=== PATIENT | female | born 1965 | race Caucasian/White ===

== ENCOUNTER 2018-04-03 10:58 | Emergency (ER) | payer OTHER, SELFPAY ==
[2018-04-03] VITALS (7 sets, daily range): BP systolic 102–123; BP diastolic 82–94; PULSE 83–101; RESP 11–20; TEMP 36.6–36.7; O2SAT 96–98
--- NOTE | 2018-04-03 11:51 | ED_ITS ---
HPI - General Adult General Chief complaint: Chest Pain Stated complaint: chest pressure/R side abd pain/headache/dizziness Time Seen by Provider: 04/03/18 11:13 Source: patient Mode of arrival: ambulatory Limitations: no limitations History of Present Illness HPI narrative: 52-year-old female here for evaluation of multiple complaints. Patient has had chest pain for some time now. Has had an extensive cardiac workup to include Jose that she has been told that the pain that she is having today is not cardiac in origin. Has had abdominal pain for some time now. He has had multiple CT scans which have not shown any significant pathology. Has had her gallbladder removed. Is here today because she now has her normal symptoms plus vertigo sensation. Also a dehydration sensation. She is currently on Lasix and spironolactone. She states she has been gradually ring cooperating his medications back in to her regiment and take spironolactone every day and 40 mg of Lasix every other day. She is an insulin- dependent diabetic. Related Data Home Medications Medication Instructions Recorded Confirmed VITAMIN D (Vitamin D3) 5,000 iu PO QDAY #0 11/21/16 benzonatate 100 mg PO TID PRN #0 11/21/16 chlorthalidone 25 mg PO QWEEK PRN #0 11/21/16 diltiazem HCl [Cartia XT] 120 mg PO Q DAY #0 11/21/16 docusate sodium 200 mg PO QDAY #0 11/21/16 dulaglutide [Trulicity] 0.75 mg SQ QWEEKSU #0 11/21/16 duloxetine [Cymbalta] 60 mg PO QDAY #0 11/21/16 febuxostat [Uloric] 40 mg PO Q DAY #0 11/21/16 fluconazole [Diflucan] 150 mg PO QWEEKSU #0 11/21/16 furosemide 40 mg PO Q DAY #0 11/21/16 insulin lispro protamin-lispro 60 units SQ BID #0 11/21/16 [Humalog Mix 75-25 KwikPen] lansoprazole 15 mg PO QDAY #0 11/21/16 montelukast 10 mg PO Q DAY #0 11/21/16 spironolactone [Aldactone] 100 mg PO QDAY #0 11/21/16 tiotropium bromide [Spiriva 2.5 mcg INH Q DAY #0 11/21/16 Respimat] Previous Rx's Medication Instructions Recorded prednisone 40 mg PO Q DAY #8 tab 01/17/18 meclizine 25 mg PO BID PRN #7 tab 04/03/18 Allergies Allergy/AdvReac Type Severity Reaction Status Date / Time levofloxacin [From LEVAQUIN] Allergy Intermediate RASH Verified 04/03/18 11:29 aspirin [ASPIRIN] Allergy Unknown Verified 04/03/18 11:29 azithromycin [AZITHROMYCIN] Allergy Unknown Verified 04/03/18 11:29 diclofenac [DICLOFENAC] Allergy Unknown Verified 04/03/18 11:29 tramadol [TRAMADOL] Allergy Unknown Verified 04/03/18 11:29 Review of Systems Constitutional Denies chills, Reports fatigue, Denies fever(s) and Denies weakness ENT Ears, Nose, Mouth, and Throat: Reports vertigo and Reports dizziness Cardiovascular Reports chest pain, Denies edema, Denies irregular heart rhythm, Denies lightheadedness, Denies palpitations, Denies dyspnea, Denies dyspnea on exertion and Denies orthopnea Respiratory Denies cough, Denies dyspnea, Denies dyspnea on exertion and Denies wheezing Gastrointestinal Gastrointestinal: Reports abdominal pain, Denies change in bowel habits, Denies constipation, Denies cramping, Denies diarrhea, Denies nausea and Denies vomiting Genitourinary Denies hematuria, Denies flank pain, Denies urinary incontinence and Denies urinary urgency Musculoskeletal Denies abnormal gait, Denies back pain, Denies muscle weakness, Denies numbness and Denies tingling Integumentary/Breasts Denies pruritus, Denies erythema, Denies rash and Denies wounds Neurologic Denies abnormal gait, Denies confusion, Reports vertigo, Reports dizziness, Denies focal weakness, Denies numbness, Denies seizure-like activity, Denies tingling and Denies weakness Psychiatric Denies confusion Endocrine Reports fatigue and Denies palpitations Hematologic/Lymphatic Denies easy bruising Allergic/Immunologic Denies wheezing [facility] Social History Smoking Status: Never smoker Exam Initial Vital Signs Initial Vital Signs: Vital Signs Temperature 98.1 F 04/03/18 11:23 Pulse Rate 101 H 04/03/18 11:23 Respiratory Rate 04/03/18 11:23 Blood Pressure 123/94 H 04/03/18 11:23 Pulse Oximetry 96 04/03/18 11:23 Chest Chest: normal inspection of the chest Resp Effort & Inspection: normal respiratory effort, able to speak in complete sentences, no respiratory distress and no use of accessory muscles Auscultation: clear to auscultation bilaterally, no rales, no rhonchi and no wheezes Cardio Rate: regular rate Rhythm: regular rhythm Heart Sounds: no click, no gallops, no murmurs and no rubs Pulses: normal peripheral pulses GI Inspection: non-distended Palpation: soft, no hepatosplenomegaly, No guarding, No pulsatile mass and No tender Skin General: no rashes or lesions noted, No jaundice and No petechiae Neuro General: alert, awake, oriented x3, gait normal and no focal motor deficits Cranial Nerves: CN's II-XI intact bilaterally Cognition: normal cognition Speech: speech normal Gait: normal gait Motor: strength 5/5 throughout Sensory Exam: no sensory deficits noted Extrem General: full ROM, no clubbing, cyanosis or edema, no pedal edema and no calf tenderness Course Orders Ordered: ED Orders 04/03/18 11:03 EKG-12 Lead Stat 04/03/18 11:54 Complete Blood Count AUTO DIFF Stat Comprehensive Metabolic Panel Stat Lipase Stat Discontinued Medications Sodium Chloride (Normal Saline 0.9%) 500 mls @ 1,000 mls/hr IV BOLUS ONE Stop: 04/03/18 12:20 Last Infusion: 04/03/18 13:09 Dose: 0 mls/hr Admin: 04/03/18 12:30 Dose: 1,000 mls/hr Meclizine HCl (Antivert) 25 mg PO NOW ONE Stop: 04/03/18 11:52 Last Admin: 04/03/18 12:30 Dose: 25 mg Vital Signs - 8 hr 04/03/18 11:23 04/03/18 12:07 04/03/18 12:30 Temperature 98.1 F Pulse Rate 101 H 87 90 Respiratory Rate 20 14 17 Blood Pressure 123/94 H Blood Pressure [Right Arm] 114/90 H 105/85 H Pulse Oximetry 96 97 96 04/03/18 12:33 04/03/18 13:00 Temperature Pulse Rate 92 H 84 Respiratory Rate 19 14 Blood Pressure Blood Pressure [Right Arm] 102/85 H 123/82 H Pulse Oximetry 97 98 Medical Decision Making MDM Narrative Medical decision making narrative: Patient has had extensive workup for her chest symptoms to include a Lexiscan and has been told that she does not have cardiac issues. Did have elevated LFTs today. I discussed this with her. She has a follow-up with her primary doctor on of this week. Her labs and symptoms are consistent with mild dehydration. This would explain her elevated hemoglobin and hematocrit 10 also over other electrolyte issues. She does have an elevated glucose but is not in DKA. Was given fluids through the IV and also tolerated oral intake. She was given meclizine and that with the fluids improved her vertigo symptoms. Will hold on head CT for now. I have low suspicion for a central process of the vertigo given her history and physical. We did discuss her diuretic use. She will drop her Lasix to 20 mg every other day and continue the spironolactone. She was given return precautions. Her is at bedside for these discussions. She expressed understanding and agreement with plan Lab Data Lab results reviewed: Yes I reviewed the patient's lab results. Result diagrams: 04/03/18 11:54 04/03/18 11:54 Lab Results 04/03/18 04/03/18 04/03/18 Range/Units 11:54 11:54 11:54 WBC 9.7 (4.5-11.0) X10^3/uL RBC 5.76 H (4.0-5.2) X10^6/uL Hgb 16.8 H (12.0-16.0) g/dL Hct 47.2 H (36-46) % MCV 82.0 (80-100) fL MCH 29.1 (26-34) PG MCHC 35.5 (30-36) % RDW 12.4 (11.6-14.8) % Plt Count 306 (150-400) X10^3/uL Neut % (Auto) 49.9 L (50-75) % Lymph % (Auto) 40.2 H (25-40) % Stanton % (Auto) 8.5 (3-14) % Eos % (Auto) 0.8 L (2-4) % Baso % (Auto) 0.6 (0-2) % Neut # (Auto) 4800 (9156-3385) /uL Sodium 125 L (137-145) mmol/L Potassium 3.1 L (3.4-5.1) mmol/L Chloride 72.0 L* (98-107) mmol/L Carbon Dioxide 36.0 H (22-32) mmol/L BUN 31.0 H (7-17) mg/dL Creatinine 1.10 H (0.52-1.04) mg/dL Estimated GFR 51.8 L (>60) mL/min BUN/Creatinine Ratio 28.2 H (6-22) Glucose 511 H* (70-100) mg/dL Calcium 10.9 H (8.4-10.2) mg/dL Total Bilirubin 0.8 (0.2-1.3) mg/dL AST 41 H (14-36) IU/L ALT 53 H (9-52) IU/L Alkaline Phosphatase 130 H (38-126) U/L Total Protein 8.0 (6.3-8.2) g/dL Albumin 4.8 (3.5-5.0) g/dL Globulin 3.2 (1.7-4.1) g/dL Albumin/Globulin Ratio 1.5 (1.0-2.8) Lipase 225 (23-300) U/L ECG Data Attestation: I personally reviewed and interpreted this ECG as follows: Prior ECG tracings: available for review Interpretation: EKG dated 03 Apr 2018 time 1103 hr Sinus rhythm Ventricular rate of 96 Normal axis Normal intervals Normal QRS No ST T wave changes Previous EKG dated 01/12/2018 Sinus rhythm Ventricular rate 86 Normal axis Normal intervals Normal QRS No ST T wave changes Discharge Plan Departure Patient Disposition: Home, Self-Care Clinical Impression: Dehydration, Hyperglycemia, Elevated liver function tests Instructions: DI for Dehydration -- Adult Activity Restrictions/Additional Instructions: Recommend that you decrease your Lasix dose to 20 mg every other day. Continue to check your blood sugars at home and does yourself with insulin appropriately. Keep your appointment with your primary doctor on of this week return to the emergency department for any new or worsening symptoms Prescriptions: New meclizine 25 mg tablet 25 mg PO BID PRN (Reason: vertigo) Qty: 7 RF: 0 No Action dulaglutide [Trulicity] 0.75 MG/0.5 ML pen injector 0.75 mg SQ QWEEKSU Qty: 0 RF: 0 fluconazole [Diflucan] 150 MG tablet 150 mg PO QWEEKSU Qty: 0 RF: 0 montelukast 10 MG tablet 10 mg PO Q DAY Qty: 0 RF: 0 diltiazem HCl [Cartia XT] 120 MG capsule,extended release 24hr 120 mg PO Q DAY Qty: 0 RF: 0 febuxostat [Uloric] 40 MG tablet 40 mg PO Q DAY Qty: 0 RF: 0 benzonatate 100 MG capsule 100 mg PO TID PRNQty: 0 RF: 0 chlorthalidone 25 MG tablet 25 mg PO QWEEK PRNQty: 0 RF: 0 tiotropium bromide [Spiriva Respimat] 4 GM mist 2.5 mcg INH Q DAY Qty: 0 RF: 0 furosemide 40 MG tablet 40 mg PO Q DAY Qty: 0 RF: 0 insulin lispro protamin-lispro [Humalog Mix 75-25 KwikPen] 100 UNIT/1 ML insulin pen 60 units SQ BID Qty: 0 RF: 0 lansoprazole 15 MG capsule,delayed release(DR/EC) 15 mg PO QDAY Qty: 0 RF: 0 spironolactone [Aldactone] 100 MG tablet 100 mg PO QDAY Qty: 0 RF: 0 VITAMIN D (Vitamin D3) 5,000 iu PO QDAY Qty: 0 RF: 0 docusate sodium 100 MG capsule 200 mg PO QDAY Qty: 0 RF: 0 duloxetine [Cymbalta] 30 MG capsule,delayed release(DR/EC) 60 mg PO QDAY Qty: 0 RF: 0 prednisone 20 MG tablet 40 mg PO Q DAY Qty: 8 RF: 0
[2018-04-03 12:02] LABS: Add Manual Diff / Slide Review NO; Basophils Percent Auto 0.6 % (0-2); Eosinophils Percent Auto 0.8 % (2-4); Hematocrit 47.2 % (36-46); Hemoglobin 16.8 g/dL (12.0-16.0); Lymphocytes Percent Auto 40.2 % (25-40); Mean Corpuscular HGB Conc 35.5 % (30-36); Mean Corpuscular Hemoglobin 29.1 PG (26-34); Monocytes Percent Auto 8.5 % (3-14); Neutrophils Absolute Auto 4800 /uL (3000-5900); Neutrophils Percent Auto 49.9 % (50-75); Platelet Count 306 X10^3/uL (150-400); Red Blood Cell Count 5.76 X10^6/uL (4.0-5.2); Red Cell Distribution Width 12.4 % (11.6-14.8); White Blood Cell Count 9.7 X10^3/uL (4.5-11.0)
[2018-04-03 12:09] LABS: Alanine Aminotransferase 53 IU/L (9-52); Albumin 4.8 g/dL (3.5-5.0); Albumin Globulin Ratio 1.5 (1.0-2.8); Alkaline Phosphatase 130 U/L (38-126); Aspartate Aminotransferase 41 IU/L (14-36); BUN Creatinine Ratio 28.2 (6-22); Bilirubin Total 0.8 mg/dL (0.2-1.3); Calcium 10.9 mg/dL (8.4-10.2); Estimated Glomerular Filt Rate 51.8 mL/min (>60); Globulin 3.2 g/dL (1.7-4.1); HEMOLYSIS 18 (0-50); Lipase 225 U/L (23-300); Potassium 3.1 mmol/L (3.4-5.1); Sodium 125 mmol/L (137-145)
[2018-04-03 12:18] LABS: Glucose 511 mg/dL (70-100)
[2018-04-03] MEDS: MECLIZINE HCL 12.5 MG TABLET 25 MG PO (12:30)
[2018-04-03] MEDS: SODIUM CHLORIDE 0.9% 500 ML 1000 ML IV (12:30)
== END 2018-04-03 13:50 | disposition home or self-care (01) ==
PROVIDERS: Emergency Provider Emergency Medicine; PCP Physician Assistant Medical
DX: E86.0 Dehydration (principal); R73.9 Hyperglycemia, unspecified; R94.5 Abnormal results of liver function studies
CPT/HCPCS: 36591; 80053; 81003; 82962; 83690; 85025; 93005; 93041; 96360; 99284

== ENCOUNTER → 2018-06-09 15:22 | Outpatient (CLI) | payer OTHER, SELFPAY ==
--- NOTE | 2018-06-09 | DI.CT.S_ITS ---
PROCEDURE: CT ABDOMEN PELVIS W CON INDICATIONS: ABDOMINAL PAIN RIGHT LOWER QUADRANT TECHNIQUE: After the administration of oral and intravenous contrast, 5 mm thick sections acquired from the diaphragms to the symphysis. 5 mm thick coronal and sagittal reformats were performed. For radiation dose reduction, the following was used: automated exposure control, adjustment of mA and/or kV according to patient size. COMPARISON: [facility], CT, THORAX WITHOUT CONTRAST, 01/26/2018, 13:05. FINDINGS: Image quality: Excellent. ABDOMEN: Lung bases: Lung bases are clear. Heart size is normal. Solid organs: Liver demonstrates enlargement with steatosis. Gallbladder has been removed. Biliary system is non-dilated. Pancreas enhances normally. Spleen demonstrates scattered sub-centimeters areas of low attenuation the largest measuring approximately 8 mm. There are unchanged. No adrenal nodules. Kidneys are normal in size and enhancement, without hydronephrosis. Peritoneum and bowel: Stomach, small bowel, and colon loops are normal in caliber and wall thickness. No free fluid or air. The appendix is unremarkable. Nodes and vessels: No retroperitoneal or mesenteric adenopathy. Aorta and inferior vena cava are normal in caliber. Miscellaneous: No ventral hernias. PELVIS: Genitourinary: Bladder wall thickness is normal. Miscellaneous: No inguinal hernias or adenopathy. Bones: No suspicious bony lesions. No vertebral body compression fractures. IMPRESSION: 1. No visualized cause of acute abdominal pain. 2. Appendix is unremarkable. 3. Hepatic steatosis. Dictated by: Dianna Lees M.D. on 06/09/2018 at 17:26 Approved by: Dianna Lees M.D. on 06/09/2018 at 18:04
[2018-06-09 15:51] LABS: Add Manual Diff / Slide Review NO; Basophils Percent Auto 0.9 % (0-2); Eosinophils Percent Auto 2.2 % (2-4); Hematocrit 42.6 % (36-46); Hemoglobin 14.5 g/dL (12.0-16.0); Mean Corpuscular HGB Conc 33.9 % (30-36); Mean Corpuscular Hemoglobin 28.8 PG (26-34); Monocytes Percent Auto 5.7 % (3-14); Neutrophils Absolute Auto 5000 /uL (3000-5900); Neutrophils Percent Auto 52.2 % (50-75); Platelet Count 332 X10^3/uL (150-400); Red Blood Cell Count 5.01 X10^6/uL (4.0-5.2); White Blood Cell Count 9.6 X10^3/uL (4.5-11.0)
[2018-06-09 16:03] LABS: Alanine Aminotransferase 46 IU/L (9-52); Albumin 4.7 g/dL (3.5-5.0); Albumin Globulin Ratio 1.9 (1.0-2.8); Alkaline Phosphatase 101 U/L (38-126); Aspartate Aminotransferase 31 IU/L (14-36); Bilirubin Total 0.4 mg/dL (0.2-1.3); Blood Urea Nitrogen 18 mg/dL (7-17); Calcium 10.4 mg/dL (8.4-10.2); Carbon Dioxide 29 mmol/L (22-32); Chloride 95 mmol/L (98-107); Estimated Glomerular Filt Rate 57.8 mL/min (>60); Globulin 2.5 g/dL (1.7-4.1); Glucose 250 mg/dL (70-100); HEMOLYSIS < 15 (0-50); Lipase 91 U/L (23-300); Potassium 3.9 mmol/L (3.4-5.1); Sodium 136 mmol/L (137-145); Total Protein 7.2 g/dL (6.3-8.2)
== END ==
PROVIDERS: PCP Physician Assistant Medical; Visit Provider Physician Assistant Medical
DX: R10.31 Right lower quadrant pain (principal); K76.0 Fatty (change of) liver, not elsewhere classified
CPT/HCPCS: 36415; 74177; 80053; 83690; 85025; Q9967

== ENCOUNTER 2018-12-01 15:23 | Emergency (ER) | payer BC, SELFPAY ==
[2018-12-01 15:35] VITALS: BP 151/96; PULSE 95; RESP 15; TEMP 37.2; O2SAT 99; BMI 33.4
[2018-12-01 16:04] LABS: Influenza A and B by PCR Rapid Negative (Negative)
--- NOTE | 2018-12-01 16:52 | DI.RAD.S_ITS ---
PROCEDURE: XR CHEST 2V INDICATIONS: cough, asthma, pain TECHNIQUE: 2 views of the chest were acquired. COMPARISON: [facility], , CHEST 2 VIEW, 01/12/2018, 17:57. FINDINGS: Surgical changes and devices: None. Lungs and pleura: No pleural effusions or pneumothorax. Lungs are clear. Mediastinum: Mediastinal contours are normal. Heart size is normal. Bones and chest wall: No suspicious bony abnormalities. Soft tissues appear unremarkable. IMPRESSION: No acute disease. Dictated by: Fortunato Luna M.D. on 12/01/2018 at 17:32 Approved by: Fortunato Luna M.D. on 12/01/2018 at 17:32
[2018-12-01] MEDS: ALBUTEROL 2.5 MG/3 ML NEB (ADULT) INH (16:56)
[2018-12-01] MEDS: ALBUTEROL/IPRATROPIUM 3 ML AMPUL INH (16:56)
--- NOTE | 2018-12-01 16:56 | PC.NURSE ---
provider at bs. , pt c/o chest tightness, shortness of breath, tripod position.skin warm dry pink.
[2018-12-01 16:58] VITALS: O2SAT 96
--- NOTE | 2018-12-01 16:59 | ED_ITS ---
HPI - URI/Sore Throat <Doris Arreola PA-C - Last Filed: 12/01/18 22:14> General Chief Complaint: Upper Respiratory Symptoms Stated Complaint: thinks she has the Cold, bad Time Seen by Provider: 12/01/18 16:46 Source: patient Mode of arrival: ambulatory Limitations: no limitations History of Present Illness HPI Narrative: This 53-year-old female complains of upper respiratory symptoms onset 5 days ago. She states initially, these were just cold symptoms with some nasal congestion, sinus pressure, and chest congestion. She started to feel achy all over. She worked on Wednesday, but then started to develop fevers, increasing cough and chest tightness, and now pain with deep breath. She states that this is typical of her asthma exacerbations when she gets sick. She states that she has earache, more on the left. She does not have sore throat. She has had increased wheeze at home. Does use her inhalers but out of nebulizer machine medicine. She states her mom was sick with similar symptoms prior to onset of hers. She has been taking Mucinex with acetaminophen as well as ibuprofen regularly at home. 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 She states that Decadron usually works more quickly for her but with fewer side effects. Related Data Home Medications Medication Instructions Recorded Confirmed cholecalciferol (vitamin D3) 5,000 unit PO DAILY #0 11/21/16 12/01/18 [Vitamin D3] diltiazem HCl [Cartia XT] 120 mg PO Q DAY PRN #0 11/21/16 12/01/18 docusate sodium 200 mg PO QDAY #0 11/21/16 12/01/18 duloxetine [Cymbalta] 60 mg PO QDAY #0 11/21/16 12/01/18 febuxostat [Uloric] 40 mg PO Q DAY #0 11/21/16 12/01/18 fluconazole [Diflucan] 150 mg PO PRN PRN #0 11/21/16 12/01/18 furosemide 40 mg PO DAILY #0 11/21/16 12/01/18 lansoprazole 15 mg PO QDAY #0 11/21/16 12/01/18 montelukast 10 mg PO DAILY #0 11/21/16 12/01/18 spironolactone [Aldactone] 100 mg PO DAILY #0 11/21/16 12/01/18 albuterol sulfate [Ventolin HFA] 2 puff INHALATION Q3H PRN 12/01/18 12/01/18 insulin glargine [Lantus U-100 20 units SUBCUT BEDTIME 12/01/18 12/01/18 Insulin] insulin lispro [Humalog U-100 1 dose SUBCUT PRN PRN 12/01/18 12/01/18 Insulin] Previous Rx's Medication Instructions Recorded prednisone 40 mg PO Q DAY #8 tab 01/17/18 albuterol sulfate 1.25 mg INHALATION Q4H PRN #90 ml 12/01/18 ipratropium-albuterol 3 ml INHALATION QID PRN #180 ml 12/01/18 Allergies Allergy/AdvReac Type Severity Reaction Status Date / Time levofloxacin [From LEVAQUIN] Allergy Intermediate RASH Verified 12/01/18 15:35 aspirin [ASPIRIN] Allergy Unknown Verified 12/01/18 15:35 azithromycin [AZITHROMYCIN] Allergy Unknown Verified 12/01/18 15:35 diclofenac [DICLOFENAC] Allergy Unknown Verified 12/01/18 15:35 tramadol [TRAMADOL] Allergy Unknown Verified 12/01/18 15:35 Review of Systems <Doris Arreola PA-C - Last Filed: 12/01/18 22:14> Review of Systems ROS Unobtainable: All systems reviewed & are unremarkable except as noted in HPI and below Exam <Doris Arreola PA-C - Last Filed: 12/01/18 22:14> Narrative Exam Narrative: GENERAL APPEARANCE: Patient sitting comfortably, in no distress. HEAD: No sinus TTP. EYES: PERRL, EOMI. EARS: Normal auditory canals, TMS intact with normal light reflexes. ORAL CAVITY: Normal oropharynx. THROAT: Mild erythema, PND noted, no exudate NECK/THYROID: Neck supple, full range of motion, no cervical lymphadenopathy. LUNGS: Clear to auscultation bilaterally with generalized reduced breath sounds , occasional cough on exam HEART: RRR without murmur, nl S1, S2, no S3 or S4. Initial Vital Signs Initial Vital Signs: Vital Signs Temperature 99.0 F 12/01/18 15:35 Pulse Rate 95 H 12/01/18 15:35 Respiratory Rate 15 12/01/18 15:35 Blood Pressure 151/96 H 12/01/18 15:35 Pulse Oximetry 99 12/01/18 15:35 <Wes Page DO - Last Filed: 12/02/18 08:26> Initial Vital Signs Initial Vital Signs: Vital Signs Temperature 99.0 F 12/01/18 15:35 Pulse Rate 95 H 12/01/18 15:35 Respiratory Rate 15 12/01/18 15:35 Blood Pressure 151/96 H 12/01/18 15:35 Pulse Oximetry 99 12/01/18 15:35 Course <Doris Arreola PA-C - Last Filed: 12/01/18 22:14> Additional Information: Patient is feeling markedly improved after nebulizer treatments. Chatting with family on face time. She has a sick contact at home that she cares for and believes that this is viral related to that. She feels this is consistent with her previous asthma exacerbations. She started herself on 60 mg of prednisone on Wednesday, then has been taking 40 mg. She tends to get palpitations/arrhythmia with that and takes diltiazem as needed. She states that generally Decadron works better with fewer side effects and would like a dose of that here. She states that she adjust her insulin accordingly when she takes this and monitors her blood sugars. She has also been out of her nebulizer medications at home and these tend to help her, so they were refilled. She agreed to return if any acutely worsening symptoms over the weekend, otherwise will follow up with her PCP within the next few days, will continue nebs and steroids at home. Orders Ordered: Discontinued Medications Albuterol (Ventolin) 2.5 mg INH NOW ONE Stop: 12/01/18 16:53 Last Admin: 12/01/18 16:56 Dose: 2.5 mg Albuterol/Ipratropium (Duoneb) 3 ml INH NOW ONE Stop: 12/01/18 16:53 Last Admin: 12/01/18 16:56 Dose: 3 ml Dexamethasone 16 mg/ Sodium (Chloride) 51.6 mls @ 206.4 mls/hr IV NOW ONE Stop: 12/01/18 18:44 Last Admin: 12/01/18 18:28 Dose: Vital Signs - 8 hr 12/01/18 15:35 12/01/18 16:58 12/01/18 17:07 Temperature 99.0 F Pulse Rate 95 H Respiratory Rate 15 Blood Pressure 151/96 H Blood Pressure [Right Arm] Pulse Oximetry 99 96 100 12/01/18 17:25 12/01/18 18:17 Temperature Pulse Rate 101 H 106 H Respiratory Rate 17 18 Blood Pressure Blood Pressure [Right Arm] 176/90 H 153/92 H Pulse Oximetry 99 99 <Wes Page DO - Last Filed: 12/02/18 08:26> Orders Ordered: Discontinued Medications Albuterol (Ventolin) 2.5 mg INH NOW ONE Stop: 12/01/18 16:53 Last Admin: 12/01/18 16:56 Dose: 2.5 mg Albuterol/Ipratropium (Duoneb) 3 ml INH NOW ONE Stop: 12/01/18 16:53 Last Admin: 12/01/18 16:56 Dose: 3 ml Dexamethasone 16 mg/ Sodium (Chloride) 51.6 mls @ 206.4 mls/hr IV NOW ONE Stop: 12/01/18 18:44 Last Admin: 12/01/18 18:28 Dose: Vital Signs - 8 hr 12/01/18 15:35 12/01/18 16:58 12/01/18 17:07 Temperature 99.0 F Pulse Rate 95 H Respiratory Rate 15 Blood Pressure 151/96 H Blood Pressure [Right Arm] Pulse Oximetry 99 96 100 12/01/18 17:25 12/01/18 18:17 Temperature Pulse Rate 101 H 106 H Respiratory Rate 17 18 Blood Pressure Blood Pressure [Right Arm] 176/90 H 153/92 H Pulse Oximetry 99 99 MDM - URI/Sore Throat <Doris Arreola PA-C - Last Filed: 12/01/18 22:14> Lab Data Lab Results 12/01/18 Range/Units 15:32 Influenza A & B (PCR) Negative (Negative) Imaging Data Chest x-ray: Radiologist's impression: View Report History [address] [address] XRay Report Signed Patient: Daisy Morrow MR#: [id number] : 1965 Acct:[id number] Age/Sex: 53 / F Date of Service: 12/01/18 Loc: ED Accession Number: [id number] Procedure: XR chest 2V Ordering Provider: Doris Arreola P.A-C PROCEDURE: XR CHEST 2V INDICATIONS: cough, asthma, pain TECHNIQUE: 2 views of the chest were acquired. COMPARISON: [facility], , CHEST 2 VIEW, 01/12/2018, 17:57. FINDINGS: Surgical changes and devices: None. Lungs and pleura: No pleural effusions or pneumothorax. Lungs are clear. Mediastinum: Mediastinal contours are normal. Heart size is normal. Bones and chest wall: No suspicious bony abnormalities. Soft tissues appear unremarkable. IMPRESSION: No acute disease. Dictated by: Fortunato Luna M.D. on 12/01/2018 at 17:32 Approved by: Fortunato Luna M.D. on 12/01/2018 at 17:32 <Wes Page DO - Last Filed: 12/02/18 08:26> Lab Data Lab Results 12/01/18 Range/Units 15:32 Influenza A & B (PCR) Negative (Negative) Discharge Plan Departure Patient Disposition: Home Clinical Impression: Asthma exacerbation, Bronchitis Discharge Date/Time: 12/01/18 18:46 Interventions: ED Discharge Assessment Last Done: 12/01/18 18:45 Instructions: DI for Asthma -- Adult Activity Restrictions/Additional Instructions: Please return as we talked about if you have any acutely worsening symptoms again. Hopefully you will continue to feel better now that you have had the steroid injection and nebulizer treatments. Please use your DuoNeb at least twice daily routinely, and use the albuterol as often as needed in between while you are ill. Continue your prednisone 40 mg daily tomorrow if you are feeling better, but if not please increased it back to 60 mg until you follow up with your PCP. Please call 1st thing in the morning and follow up by Wednesday at the latest. Continue to monitor your blood sugars and adjust her insulin as you have been already. Prescriptions: New ipratropium-albuterol 0.5 mg-3 mg(2.5 mg base)/3 mL solution for nebulization 3 ml INHALATION QID PRN (Reason: asthma exac) Qty: 180 RF: 0 albuterol sulfate 1.25 mg/3 mL solution for nebulization 1.25 mg INHALATION Q4H PRN (Reason: asthma exac) Qty: 90 RF: 0 No Action fluconazole [Diflucan] 150 MG tablet 150 mg PO PRN PRN (Reason: as directed) Qty: 0 RF: 0 montelukast 10 MG tablet 10 mg PO DAILY Qty: 0 RF: 0 diltiazem HCl [Cartia XT] 120 MG capsule,extended release 24hr 120 mg PO Q DAY PRN (Reason: as directed) Qty: 0 RF: 0 febuxostat [Uloric] 40 MG tablet 40 mg PO Q DAY Qty: 0 RF: 0 furosemide 40 MG tablet 40 mg PO DAILY Qty: 0 RF: 0 lansoprazole 15 MG capsule,delayed release(DR/EC) 15 mg PO QDAY Qty: 0 RF: 0 spironolactone [Aldactone] 100 MG tablet 100 mg PO DAILY Qty: 0 RF: 0 cholecalciferol (vitamin D3) [Vitamin D3] 5,000 unit Tablet 5,000 unit PO DAILY Qty: 0 RF: 0 docusate sodium 100 MG capsule 200 mg PO QDAY Qty: 0 RF: 0 duloxetine [Cymbalta] 30 MG capsule,delayed release(DR/EC) 60 mg PO QDAY Qty: 0 RF: 0 prednisone 20 MG tablet 40 mg PO Q DAY Qty: 8 RF: 0 insulin glargine [Lantus U-100 Insulin] 100 unit/mL solution 20 units subcut BEDTIME RF: 0 albuterol sulfate [Ventolin HFA] 90 mcg/actuation HFA aerosol inhaler 2 puff Inhalation Q3H PRN (Reason: Wheezing) RF: 0 insulin lispro [Humalog U-100 Insulin] 100 unit/mL Cartridge 1 dose subcut PRN PRN (Reason: sliding scale) RF: 0 Referrals: Tania Grewal PA-C [Primary Care Provider] - <Wes Page DO - Last Filed: 12/02/18 08:26> Cosign ED Attending Cristina Attestation: I was immediately available in the department for consultation. Documentation has been reviewed. I agree with assessment and plan.
[2018-12-01 17:07] VITALS: O2SAT 100
[2018-12-01 17:25] VITALS: BP 176/90; PULSE 101; RESP 17; O2SAT 99
[2018-12-01 18:17] VITALS: BP 153/92; PULSE 106; RESP 18; O2SAT 99
== END 2018-12-01 18:46 | disposition home or self-care (01) ==
PROVIDERS: Emergency Medicine; Emergency Provider Internal Medicine; PCP Physician Assistant Medical
DX: J45.901 Unspecified asthma with (acute) exacerbation (principal)
CPT/HCPCS: 71046; 87400; 94150; 94640; 96372; 99282; 99284; J7613

== ENCOUNTER 2018-12-04 11:16 | Emergency (ER) | payer BC, SELFPAY ==
[2018-12-04 11:28] VITALS: BP 135/99; PULSE 112; RESP 18; TEMP 36.6; O2SAT 99
--- NOTE | 2018-12-04 12:33 | DI.RAD.S_ITS ---
PROCEDURE: XR CHEST 2V INDICATIONS: sob, productive cough TECHNIQUE: 2 views of the chest were acquired. COMPARISON: [facility], CR, XR CHEST 2V, 12/01/2018, 16:54. FINDINGS: Surgical changes and devices: None. Lungs and pleura: No pleural effusions or pneumothorax. Lungs are clear. Mediastinum: Mediastinal contours are normal. Heart size is normal. Bones and chest wall: No suspicious bony abnormalities. Soft tissues appear unremarkable. IMPRESSION: No acute cardiopulmonary pathology. Dictated by: Fermin Manzano M.D. on 12/04/2018 at 12:48 Approved by: Fermin Manzano M.D. on 12/04/2018 at 12:48
[2018-12-04 12:50] VITALS: PULSE 101; RESP 18; O2SAT 100
--- NOTE | 2018-12-04 12:50 | ED_ITS ---
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 The patient has a long history of asthma as well as diabetes. She states she was here on with similar complaints, but feels as though she is getting worse. She denies any fevers, denies any nausea or vomiting. She does complain of diarrhea but states it might be due to her chronic IBS. She complains of pain on deep inspiration. She states that she is having purulent sputum with her productive cough. She denies any chest pain at rest. Related Data Home Medications Medication Instructions Recorded Confirmed cholecalciferol (vitamin D3) 5,000 unit PO DAILY #0 11/21/16 12/01/18 [Vitamin D3] diltiazem HCl [Cartia XT] 120 mg PO Q DAY PRN #0 11/21/16 12/01/18 docusate sodium 200 mg PO QDAY #0 11/21/16 12/01/18 duloxetine [Cymbalta] 60 mg PO QDAY #0 11/21/16 12/01/18 febuxostat [Uloric] 40 mg PO Q DAY #0 11/21/16 12/01/18 fluconazole [Diflucan] 150 mg PO PRN PRN #0 11/21/16 12/01/18 furosemide 40 mg PO DAILY #0 11/21/16 12/01/18 lansoprazole 15 mg PO QDAY #0 11/21/16 12/01/18 montelukast 10 mg PO DAILY #0 11/21/16 12/01/18 spironolactone [Aldactone] 100 mg PO DAILY #0 11/21/16 12/01/18 albuterol sulfate [Ventolin HFA] 2 puff INHALATION Q3H PRN 12/01/18 12/01/18 insulin glargine [Lantus U-100 20 units SUBCUT BEDTIME 12/01/18 12/01/18 Insulin] insulin lispro [Humalog U-100 1 dose SUBCUT PRN PRN 12/01/18 12/01/18 Insulin] Previous Rx's Medication Instructions Recorded prednisone 40 mg PO Q DAY #8 tab 01/17/18 albuterol sulfate 1.25 mg INHALATION Q4H PRN #90 ml 12/01/18 ipratropium-albuterol 3 ml INHALATION QID PRN #180 ml 12/01/18 doxycycline hyclate 100 mg PO BID #20 cap 12/04/18 Allergies Allergy/AdvReac Type Severity Reaction Status Date / Time levofloxacin [From LEVAQUIN] Allergy Intermediate RASH Verified 12/04/18 11:31 aspirin [ASPIRIN] Allergy Unknown Verified 12/04/18 11:31 azithromycin [AZITHROMYCIN] Allergy Unknown Verified 12/04/18 11:31 diclofenac [DICLOFENAC] Allergy Unknown Verified 12/04/18 11:31 tramadol [TRAMADOL] Allergy Unknown Verified 12/04/18 11:31 Review of Systems <ROBERTA Ramirez - Last Filed: 12/04/18 13:50> Review of Systems GENERAL: Denies chills, fatigue, malaise, fever, sweats. HEENT: See HPI RESPIRATORY: See HPI CARDIOVASCULAR: Denies chest pain, palpitations, orthopnea, edema, GASTROINTESTINAL: Denies nausea, vomiting, abdominal pain, diarrhea, constipation, melena. : Denies dysuria, frequency, incontinence, hematuria, urinary retention. MUSCULOSKELETAL: denies weakness, joint pain, or bony pain SKIN: Denies rash, skin lesions, or other NEUROLOGIC: Denies weakness, headache, numbness, change in speech, confusion, seizures, incoordination. PSYCHIATRIC: No concerning psychosocial issues. 12 point review of systems is negative except for those stated above Exam <ROBERTA Ramirez - Last Filed: 12/04/18 13:50> Narrative Exam Narrative: GENERAL: This is a well-nourished, well-developed patient, sitting on stretcher HEAD: Atraumatic. Normocephalic. No temporal or scalp tenderness. EYES: Pupils equal round and reactive. Extraocular motions intact. No scleral icterus. No injection or drainage. ENT: Nose without bleeding, purulent drainage or septal hematoma. Throat without erythema, tonsillar hypertrophy or exudate. Uvula midline. Airway patent. Fluid noted behind bilateral tympanic membranes. Bilateral tympanic membranes pearly west. No erythema. NECK: Trachea midline. No JVD or lymphadenopathy. Supple, nontender, no meningeal signs. CARDIOVASCULAR: Regular rate and rhythm without murmurs, gallops, or rubs. RESPIRATORY: Diffuse expiratory wheezes bilaterally all anguiano. Productive cough noted during exam.. Breath sounds equal bilaterally. No rales or rhonchi noted. No accessory muscle use or tried potting. Patient is able to speak in full sentences after nebulizer in the emergency department. GASTROINTESTINAL: Abdomen soft, non-tender, nondistended. No hepato-splenomegaly , or palpable masses. No guarding. EXTREMITIES: No clubbing, cyanosis, or edema. No joint tenderness, effusion, or edema noted. BACK: Nontender without deformity or crepitance. No flank tenderness. NEURO: AOx3. SKIN: No rash or erythema. Initial Vital Signs Initial Vital Signs: Vital Signs Temperature 97.9 F 12/04/18 11:28 Pulse Rate 112 H 12/04/18 11:28 Respiratory Rate 18 12/04/18 11:28 Blood Pressure 135/99 H 12/04/18 11:28 Pulse Oximetry 99 12/04/18 11:28 <Melanie Dexter MD - Last Filed: 12/04/18 18:54> Initial Vital Signs Initial Vital Signs: Vital Signs Temperature 97.9 F 12/04/18 11:28 Pulse Rate 112 H 12/04/18 11:28 Respiratory Rate 18 12/04/18 11:28 Blood Pressure 135/99 H 12/04/18 11:28 Pulse Oximetry 99 12/04/18 11:28 Course <ROBERTA Ramirez - Last Filed: 12/04/18 13:50> Orders Ordered: ED Orders 12/04/18 12:33 XR chest 2V Stat RT Consult Eval and Treat Now Discontinued Medications Albuterol/Ipratropium (Duoneb) 3 ml INH NOW ONE Stop: 12/04/18 12:57 Last Admin: 12/04/18 12:57 Dose: 3 ml Vital Signs - 8 hr 12/04/18 11:28 12/04/18 12:50 12/04/18 12:56 Temperature 97.9 F Pulse Rate 112 H 101 H 100 H Respiratory Rate 18 18 17 Blood Pressure 135/99 H Blood Pressure [Right Arm] Pulse Oximetry 99 100 100 12/04/18 13:43 Temperature Pulse Rate 109 H Respiratory Rate 18 Blood Pressure Blood Pressure [Right Arm] 141/92 H Pulse Oximetry 98 <Melanie Dexter MD - Last Filed: 12/04/18 18:54> Orders Ordered: ED Orders 12/04/18 12:33 XR chest 2V Stat RT Consult Eval and Treat Now Discontinued Medications Albuterol/Ipratropium (Duoneb) 3 ml INH NOW ONE Stop: 12/04/18 12:57 Last Admin: 12/04/18 12:57 Dose: 3 ml Vital Signs - 8 hr 12/04/18 11:28 12/04/18 12:50 12/04/18 12:56 Temperature 97.9 F Pulse Rate 112 H 101 H 100 H Respiratory Rate 18 18 17 Blood Pressure 135/99 H Blood Pressure [Right Arm] Pulse Oximetry 99 100 100 12/04/18 13:43 Temperature Pulse Rate 109 H Respiratory Rate 18 Blood Pressure Blood Pressure [Right Arm] 141/92 H Pulse Oximetry 98 MDM - URI/Sore Throat <ROBERTA Ramirez - Last Filed: 12/04/18 13:50> Imaging Data Chest x-ray: Radiologist's impression: 2 ROBERTA Ramirez Find Patient Imaging ACTIVITY DATE EXAM STATUS AUTHOR 12/04/18 12:33 Signed Fermin Manzano [address] [address] XRay Report Signed Patient: Daisy Morrow [facility]#: [id number] : 1965Acct:[id number] Age/Sex: 53 / FDate of Service: 12/04/18 Loc: ED Accession Number: [id number] Procedure: XR chest 2V Ordering Provider: Yadira Dyson PROCEDURE: XR CHEST 2V INDICATIONS: sob, productive cough TECHNIQUE: 2 views of the chest were acquired. COMPARISON: [facility], , XR CHEST 2V, 12/01/2018, 16:54. FINDINGS: Surgical changes and devices: None. Lungs and pleura: No pleural effusions or pneumothorax. Lungs are clear. Mediastinum: Mediastinal contours are normal. Heart size is normal. Bones and chest wall: No suspicious bony abnormalities. Soft tissues appear unremarkable. IMPRESSION: No acute cardiopulmonary pathology. Dictated by: Fermin Manzano M.D. on 12/04/2018 at 12:48 Approved by: Fermin Manzano M.D. on 12/04/2018 at 12:48 [facility] Narrative Medical decision making narrative: Patient is a 53-year-old female with chronic asthma who presents with a chief complaint of worsening cough and chest congestion with shortness of breath. She was treated with a nebulizer in the emergency department. Given her duration of illness, combined with her chronic lung disease, I elected to treat her with antibiotics at this point time. Given her allergies, we elected to use doxycycline. She states that her asthma is at baseline and she is comfortable being discharged. I discussed at length follow-up with primary care provider as discussed. I also discussed return precautions the emergency department including worsening shortness of breath or concern of heart attack or stroke. Patient no questions or concerns upon discharge. She was hemodynamically stable throughout her stay in the emergency department. Discharge Plan Departure Patient Disposition: Home Clinical Impression: Lung infection Discharge Date/Time: 12/04/18 13:44 Interventions: ED Discharge Assessment Last Done: 12/04/18 13:43 Instructions: DI for Pneumonia -- Adult, DI for Atypical Pneumonia Activity Restrictions/Additional Instructions: Given the duration of her symptoms as well as her chronic asthma, I am electing to treat with an antibiotic at this time. Please follow-up with primary care provider tomorrow as we discussed. Please follow your care plan regarding her asthma management. Please come back to the emergency department if needed. Please use sunscreen when on the doxycycline. Prescriptions: New doxycycline hyclate 100 mg capsule 100 mg PO BID Qty: 20 RF: 0 No Action fluconazole [Diflucan] 150 MG tablet 150 mg PO PRN PRN (Reason: as directed) Qty: 0 RF: 0 montelukast 10 MG tablet 10 mg PO DAILY Qty: 0 RF: 0 diltiazem HCl [Cartia XT] 120 MG capsule,extended release 24hr 120 mg PO Q DAY PRN (Reason: as directed) Qty: 0 RF: 0 febuxostat [Uloric] 40 MG tablet 40 mg PO Q DAY Qty: 0 RF: 0 furosemide 40 MG tablet 40 mg PO DAILY Qty: 0 RF: 0 lansoprazole 15 MG capsule,delayed release(DR/EC) 15 mg PO QDAY Qty: 0 RF: 0 spironolactone [Aldactone] 100 MG tablet 100 mg PO DAILY Qty: 0 RF: 0 cholecalciferol (vitamin D3) [Vitamin D3] 5,000 unit Tablet 5,000 unit PO DAILY Qty: 0 RF: 0 docusate sodium 100 MG capsule 200 mg PO QDAY Qty: 0 RF: 0 duloxetine [Cymbalta] 30 MG capsule,delayed release(DR/EC) 60 mg PO QDAY Qty: 0 RF: 0 prednisone 20 MG tablet 40 mg PO Q DAY Qty: 8 RF: 0 insulin glargine [Lantus U-100 Insulin] 100 unit/mL solution 20 units subcut BEDTIME RF: 0 albuterol sulfate [Ventolin HFA] 90 mcg/actuation HFA aerosol inhaler 2 puff Inhalation Q3H PRN (Reason: Wheezing) RF: 0 insulin lispro [Humalog U-100 Insulin] 100 unit/mL Cartridge 1 dose subcut PRN PRN (Reason: sliding scale) RF: 0 ipratropium-albuterol 0.5 mg-3 mg(2.5 mg base)/3 mL solution for nebulization 3 ml INHALATION QID PRN (Reason: asthma exac) Qty: 180 RF: 0 albuterol sulfate 1.25 mg/3 mL solution for nebulization 1.25 mg INHALATION Q4H PRN (Reason: asthma exac) Qty: 90 RF: 0 Referrals: Tania Grewal PA-C [Primary Care Provider] -
[2018-12-04 12:56] VITALS: PULSE 100; RESP 17; O2SAT 100
[2018-12-04] MEDS: ALBUTEROL/IPRATROPIUM 3 ML AMPUL INH (12:57)
[2018-12-04 13:43] VITALS: BP 141/92; PULSE 109; RESP 18; O2SAT 98
== END 2018-12-04 13:44 | disposition home or self-care (01) ==
PROVIDERS: Emergency Provider Nurse Practitioner Family; PCP Physician Assistant Medical
DX: J18.9 Pneumonia, unspecified organism (principal)
CPT/HCPCS: 71046; 94150; 94640; 99282; 99283

== ENCOUNTER 2019-10-23 17:46 | Emergency (ER) | payer BC, SELFPAY ==
[2019-10-23 17:55] VITALS: BP 177/100; PULSE 88; RESP 15; TEMP 36.3; O2SAT 99; BMI 31.8
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
[2019-10-23] MEDS: SILVER SULFADIAZINE 1% CREAM 25 GM 1 APPLIC TOP (19:43)
--- NOTE | 2019-10-23 19:50 | PC.NURSE ---
all fingers on right hand dressed silvadene cream and a non stick dressing. provider aware and no new orders at this time.
[2019-10-23 20:00] VITALS: BP 150/88; PULSE 87; RESP 16; TEMP 36.6; O2SAT 98
== END 2019-10-23 20:00 | disposition home or self-care (01) ==
PROVIDERS: Emergency Provider Emergency Medicine; PCP Physician Assistant Medical
DX: T23.001A Burn of unspecified degree of right hand, unspecified site, initial encounter (principal); X15.3XXA Contact with hot saucepan or skillet, initial encounter
CPT/HCPCS: 99282

== ENCOUNTER 2020-01-07 09:24 | Emergency (ER) | payer BC, SELFPAY ==
[2020-01-07 09:26] VITALS: BP 133/85; PULSE 99; RESP 16; TEMP 36.8; O2SAT 100; BMI 31.3
--- NOTE | 2020-01-07 09:36 | DI.RAD.S_ITS ---
PROCEDURE: XR CHEST 1V INDICATIONS: SOB, cough TECHNIQUE: One view of the chest was acquired. COMPARISON: [facility], CR, XR CHEST 2V, 12/04/2018, 12:38. FINDINGS: Surgical changes and devices: None. Lungs and pleura: Lungs are clear. No pleural effusions or pneumothorax. Mediastinum: Mediastinal contours appear normal. Heart size is normal. Bones and chest wall: No suspicious bony lesions. Overlying soft tissues appear unremarkable. IMPRESSION: Stable chest. No acute cardiopulmonary process is suspected. Dictated by: Chris Mayers M.D. on 01/07/2020 at 9:37 Approved by: Chris Mayers M.D. on 01/07/2020 at 9:38
[2020-01-07] MEDS: ALBUTEROL/IPRATROPIUM 3 ML AMPUL INH (09:43)
[2020-01-07 09:47] VITALS: O2SAT 99
[2020-01-07] MEDS: SODIUM CHLORIDE 0.9% 1,000 ML 150 ML IV (09:48)
[2020-01-07] MEDS: methylPREDNISolone 125 MG/2 ML VIAL IV (09:48)
--- NOTE | 2020-01-07 09:50 | ED_ITS ---
HPI - URI/Sore Throat General Chief Complaint: Upper Respiratory Symptoms Stated Complaint: asthma, flu like symptoms Time Seen by Provider: 01/07/20 09:28 Source: patient Mode of arrival: Ambulatory Limitations: no limitations History of Present Illness HPI Narrative: 54-year-old female nonsmoker with severe lifelong asthma presents with a chief complaint about a month's worth increasing bronchospasm and occasionally productive cough despite maximal therapy with bronchodilators. She did go to the [facility] a few days ago and was exposed to cigarette smoke which seems to worsen things. She denies any fever or shaking chills nor any chest pain. She does have increasing cough with a deep breath and reports some improvement with bronchodilators but presents short of breath with audible wheeze. She denies nausea, vomiting or diarrhea. She has been seen by her primary care provider in just finished Decadron a few days ago. She has been taking antibiotics for presumed atypical pneumonia. MD Complaint: cough Onset (ago): week(s) Duration: constant Severity: moderate Exacerbating factors: nothing Description of mucous: clear Able to tolerate fluids by mouth: Yes Treatments prior to arrival: none Related Data Home Medications Medication Instructions Recorded Confirmed cholecalciferol (vitamin D3) 5,000 unit PO DAILY #0 11/21/16 12/01/18 [Vitamin D3] diltiazem HCl [Cartia XT] 120 mg PO Q DAY PRN #0 11/21/16 12/01/18 docusate sodium 200 mg PO QDAY #0 11/21/16 12/01/18 duloxetine [Cymbalta] 60 mg PO QDAY #0 11/21/16 12/01/18 febuxostat [Uloric] 40 mg PO Q DAY #0 11/21/16 12/01/18 fluconazole [Diflucan] 150 mg PO PRN PRN #0 11/21/16 12/01/18 furosemide 40 mg PO DAILY #0 11/21/16 12/01/18 lansoprazole 15 mg PO QDAY #0 11/21/16 12/01/18 montelukast 10 mg PO DAILY #0 11/21/16 12/01/18 spironolactone [Aldactone] 100 mg PO DAILY #0 11/21/16 12/01/18 albuterol sulfate [Ventolin HFA] 2 puff INHALATION Q3H PRN 12/01/18 12/01/18 insulin glargine [Lantus U-100 20 units SUBCUT BEDTIME 12/01/18 12/01/18 Insulin] insulin lispro [Humalog U-100 1 dose SUBCUT PRN PRN 12/01/18 12/01/18 Insulin] Previous Rx's Medication Instructions Recorded prednisone 40 mg PO Q DAY #8 tab 01/17/18 albuterol sulfate 1.25 mg INHALATION Q4H PRN #90 ml 12/01/18 ipratropium-albuterol 3 ml INHALATION QID PRN #180 ml 12/01/18 doxycycline hyclate 100 mg PO BID #20 cap 12/04/18 dexamethasone [Decadron] 4 mg PO DAILY #1 tab 01/07/20 Allergies Allergy/AdvReac Type Severity Reaction Status Date / Time levofloxacin [From LEVAQUIN] Allergy Intermediate RASH Verified 10/23/19 17:55 aspirin [ASPIRIN] Allergy Unknown Verified 10/23/19 17:55 azithromycin [AZITHROMYCIN] Allergy Unknown Verified 10/23/19 17:55 diclofenac [DICLOFENAC] Allergy Unknown Verified 10/23/19 17:55 tramadol [TRAMADOL] Allergy Unknown Verified 10/23/19 17:55 Review of Systems Constitutional Constitutional: Denies chills, Denies fatigue, Denies fever(s), Denies frequent falls, Denies lethargy and Denies weakness Eyes Eyes: Denies change in vision, Denies eye discharge, Denies irritation and Denies loss of vision ENT Ears, Nose, Mouth, and Throat: Denies change in voice, Denies dizziness, Denies neck pain, Denies sore throat and Denies throat swelling Cardiovascular Cardiovascular: Denies chest pain, Denies irregular heart rhythm, Denies lightheadedness, Denies palpitations, Reports dyspnea, Denies dyspnea on exertion and Denies orthopnea Respiratory Respiratory: Denies cough, Reports dyspnea, Denies dyspnea on exertion and Reports wheezing Gastrointestinal Gastrointestinal: Denies abdominal pain, Denies change in bowel habits, Denies diarrhea, Denies nausea and Denies vomiting Genitourinary Genitourinary: Denies hematuria, Denies flank pain, Denies urinary incontinence and Denies urinary urgency Musculoskeletal Musculoskeletal: Denies back pain, Denies muscle weakness, Denies neck pain, Denies numbness and Denies tingling Integumentary/Breasts Skin/Breast: Denies pruritus, Denies erythema, Denies rash and Denies wounds Neurologic Neurologic: Denies behavioral changes, Denies confusion, Denies dizziness, Denies frequent falls, Denies loss of vision, Denies numbness, Denies tingling and Denies weakness Psychiatric Psychiatric: Denies anxiety, Denies behavioral changes, Denies confusion, Denies depression, Denies homicidal ideation and Denies suicidal ideation Endocrine Endocrine: Denies fatigue, Denies flushing and Denies palpitations Hematologic/Lymphatic Hematologic/Lymphatic: Denies easy bruising Allergic/Immunologic Allergic/Immunologic: Denies urticaria, Denies throat swelling and Reports wheezing Patient History Medical History Asthma (Chronic) Social History Smoking Status: Never smoker Smoking Status: Never smoker alcohol intake frequency: 0-2 drinks per day Substance Use Type: does not use Exam Narrative Exam Narrative: GENERAL: [54] year old patient appears stated age. Well- nourished, well-developed patient, in mild distress. HEAD: Atraumatic. Normocephalic. EYES: Pupils equal round and reactive. Extraocular motions intact. No scleral icterus. No injection or drainage. ENT: Nose without bleeding, purulent drainage. Throat without erythema, tonsillar hypertrophy or exudate. Airway patent. NECK: Trachea midline. Non tender CARDIOVASCULAR: Regular rate and rhythm without murmurs, gallops, or rubs. RESPIRATORY: Decreased breath sounds bilaterally with increased work of breathing and and expiratory wheeze GASTROINTESTINAL: Abdomen soft, non-tender, nondistended. EXTREMITIES: No edema or joint tenderness. BACK: Nontender without deformity or crepitance. No flank tenderness. NEURO: AOx3. SKIN: No rash or erythema of visible areas Initial Vital Signs Initial Vital Signs: Vital Signs Temperature 98.2 F 01/07/20 09:26 Pulse Rate 99 H 01/07/20 09:26 Respiratory Rate 16 01/07/20 09:26 Blood Pressure 133/85 01/07/20 09:26 Pulse Oximetry 100 01/07/20 09:26 Course Orders Ordered: ED Orders 01/07/20 12:40 Blood Culture Stat Discontinued Medications Albuterol (Ventolin) 5 mg INH NOW ONE Stop: 01/07/20 11:02 Last Admin: 01/07/20 11:07 Dose: 5 mg Documented by: KRISTIAN Albuterol/Ipratropium (Duoneb) 3 ml INH NOW ONE Stop: 01/07/20 09:36 Last Admin: 01/07/20 09:43 Dose: 3 ml Documented by: KRISTIAN Sodium Chloride (Normal Saline 0.9%) 1,000 mls @ 150 mls/hr IV CONT MIGUEL Last Infusion: 01/07/20 14:25 Dose: 0 mls/hr Documented by: Admin: 01/07/20 09:48 Dose: 150 mls/hr Documented by: MELI Magnesium Sulfate (Magnesium Sulfate) 2 gm in 50 mls @ 25 mls/hr IV NOW ONE Stop: 01/07/20 12:56 Last Infusion: 01/07/20 14:25 Dose: 0 mls/hr Documented by: MELI Cosigned by: ANGELINA Admin: 01/07/20 12:10 Dose: 25 mls/hr Documented by: JASON Cosigned by: TARUN Methylprednisolone (Solu-Medrol 125 Mg Vial) 125 mg IV NOW ONE Stop: 01/07/20 09:36 Last Admin: 01/07/20 09:48 Dose: 125 mg Documented by: MELI Reevaluation(s) Reevaluation #1: some improvement after duoneb. Peak flow slightly increased. Mag ordered Patient had tremendous improvement in work of breathing after magnesium and other above-stated therapies. She is very comfortable going home. She understands return precautions and has an existing appointment with her primary care provider in a few days. Time: 10:59 Vital Signs Vital signs: Vital Signs - 8 hr 01/07/20 12:08 01/07/20 13:00 01/07/20 14:30 Pulse Rate 102 H 100 H Respiratory Rate 22 Blood Pressure 139/76 Blood Pressure [Left Arm] 121/68 139/76 Pulse Oximetry 99 99 97 MDM - URI/Sore Throat Lab Data Result diagrams: 01/07/20 09:41 01/07/20 09:41 Labs: Lab Results 01/07/20 01/07/20 01/07/20 Range/Units 09:41 09:41 09:41 WBC 12.7 H (4.5-11.0) X10^3/uL RBC 5.33 H (4.0-5.2) X10^6/uL Hgb 15.4 (12.0-16.0) g/dL Hct 44.9 (36-46) % MCV 84.3 (80-100) fL MCH 28.8 (26-34) PG MCHC 34.2 (30-36) % RDW 12.8 (11.6-14.8) % Plt Count 306 (150-400) X10^3/uL Neut % (Auto) 58.4 (50-75) % Lymph % (Auto) 34.8 (25-40) % [place] % (Auto) 5.8 (3-14) % Eos % (Auto) 0.6 L (2-4) % Baso % (Auto) 0.4 (0-2) % Neut # (Auto) 7400 H (5461-4461) /uL Lymph # (Auto) 4400 (4978-1967) /uL [place] # (Auto) 700 (0-900) /uL Eos # (Auto) 100 (0-450) /uL Baso # (Auto) 100 (0-100) /uL D-Dimer < 200 (<230) ng/mL Sodium 132 L (137-145) mmol/L Potassium 3.6 (3.4-5.1) mmol/L Chloride 92 L (98-107) mmol/L Carbon Dioxide 27 (22-32) mmol/L BUN 22 H (7-17) mg/dL Creatinine 0.90 (0.52-1.04) mg/dL Estimated GFR > 60.0 (>60) mL/min BUN/Creatinine Ratio 24.4 H (6-22) Glucose 467 H (70-100) mg/dL Calcium 9.8 (8.4-10.2) mg/dL Total Bilirubin 0.6 (0.2-1.3) mg/dL AST 41 H (14-36) IU/L ALT 51 H (<35) IU/L Alkaline Phosphatase 145 H (38-126) U/L Troponin I < 0.012 (0.01-0.034) ng/mL Total Protein 7.1 (6.3-8.2) g/dL Albumin 4.3 (3.5-5.0) g/dL Globulin 2.8 (1.7-4.1) g/dL Albumin/Globulin Ratio 1.5 (1.0-2.8) Influenza A (RT-PCR) (NEGATIVE) Influenza B (RT-PCR) (NEGATIVE) 01/07/20 Range/Units 09:51 WBC (4.5-11.0) X10^3/uL RBC (4.0-5.2) X10^6/uL Hgb (12.0-16.0) g/dL Hct (36-46) % MCV (80-100) fL MCH (26-34) PG MCHC (30-36) % RDW (11.6-14.8) % Plt Count (150-400) X10^3/uL Neut % (Auto) (50-75) % Lymph % (Auto) (25-40) % [place] % (Auto) (3-14) % Eos % (Auto) (2-4) % Baso % (Auto) (0-2) % Neut # (Auto) (5820-8672) /uL Lymph # (Auto) (7391-2559) /uL [place] # (Auto) (0-900) /uL Eos # (Auto) (0-450) /uL Baso # (Auto) (0-100) /uL D-Dimer (<230) ng/mL Sodium (137-145) mmol/L Potassium (3.4-5.1) mmol/L Chloride (98-107) mmol/L Carbon Dioxide (22-32) mmol/L BUN (7-17) mg/dL Creatinine (0.52-1.04) mg/dL Estimated GFR (>60) mL/min BUN/Creatinine Ratio (6-22) Glucose (70-100) mg/dL Calcium (8.4-10.2) mg/dL Total Bilirubin (0.2-1.3) mg/dL AST (14-36) IU/L ALT (<35) IU/L Alkaline Phosphatase (38-126) U/L Troponin I (0.01-0.034) ng/mL Total Protein (6.3-8.2) g/dL Albumin (3.5-5.0) g/dL Globulin (1.7-4.1) g/dL Albumin/Globulin Ratio (1.0-2.8) Influenza A (RT-PCR) Flu a negative (NEGATIVE) Influenza B (RT-PCR) Flu b negative (NEGATIVE) Discharge Plan Departure Patient Disposition: Home Clinical Impression: Asthma exacerbation Qualifiers: Asthma severity: moderate Asthma persistence: persistent Qualified Code(s): J45.41 - Moderate persistent asthma with (acute) exacerbation Discharge Date/Time: 01/07/20 14:31 Instructions: Asthma -- Adult Activity Restrictions/Additional Instructions: *You have been diagnosed with [asthma exacerbation] *What to do: *Take medications as directed *Follow up with your primary care provider in 2-3 days, call for an a ppointment. Let them know you were seen in the Emergency Department and that we ask that you be seen in follow up *Return to ER if you should have any new, worsening or concerning symptoms Prescriptions: New dexamethasone [Decadron] 4 mg tablet 4 mg PO DAILY Qty: 1 RF: 0 No Action fluconazole [Diflucan] 150 MG tablet 150 mg PO PRN PRN (Reason: as directed) Qty: 0 RF: 0 montelukast 10 MG tablet 10 mg PO DAILY Qty: 0 RF: 0 diltiazem HCl [Cartia XT] 120 MG capsule,extended release 24hr 120 mg PO Q DAY PRN (Reason: as directed) Qty: 0 RF: 0 febuxostat [Uloric] 40 MG tablet 40 mg PO Q DAY Qty: 0 RF: 0 furosemide 40 MG tablet 40 mg PO DAILY Qty: 0 RF: 0 lansoprazole 15 MG capsule,delayed release(DR/EC) 15 mg PO QDAY Qty: 0 RF: 0 spironolactone [Aldactone] 100 MG tablet 100 mg PO DAILY Qty: 0 RF: 0 cholecalciferol (vitamin D3) [Vitamin D3] 5,000 unit Tablet 5,000 unit PO DAILY Qty: 0 RF: 0 docusate sodium 100 MG capsule 200 mg PO QDAY Qty: 0 RF: 0 duloxetine [Cymbalta] 30 MG capsule,delayed release(DR/EC) 60 mg PO QDAY Qty: 0 RF: 0 prednisone 20 MG tablet 40 mg PO Q DAY Qty: 8 RF: 0 insulin glargine [Lantus U-100 Insulin] 100 unit/mL solution 20 units subcut BEDTIME RF: 0 albuterol sulfate [Ventolin HFA] 90 mcg/actuation HFA aerosol inhaler 2 puff Inhalation Q3H PRN (Reason: Wheezing) RF: 0 insulin lispro [Humalog U-100 Insulin] 100 unit/mL Cartridge 1 dose subcut PRN PRN (Reason: sliding scale) RF: 0 ipratropium-albuterol 0.5 mg-3 mg(2.5 mg base)/3 mL solution for nebulization 3 ml INHALATION QID PRN (Reason: asthma exac) Qty: 180 RF: 0 albuterol sulfate 1.25 mg/3 mL solution for nebulization 1.25 mg INHALATION Q4H PRN (Reason: asthma exac) Qty: 90 RF: 0 doxycycline hyclate 100 mg capsule 100 mg PO BID Qty: 20 RF: 0 Referrals: Tania Grewal PA-C [Primary Care Provider] -
[2020-01-07 09:53] LABS: Add Manual Diff / Slide Review NO; Basophils Absolute Auto 100 /uL (0-100); Basophils Percent Auto 0.4 % (0-2); Eosinophils Absolute Auto 100 /uL (0-450); Eosinophils Percent Auto 0.6 % (2-4); Hematocrit 44.9 % (36-46); Hemoglobin 15.4 g/dL (12.0-16.0); Lymphocytes Absolute Auto 4400 /uL (1100-4500); Lymphocytes Percent Auto 34.8 % (25-40); Mean Corpuscular HGB Conc 34.2 % (30-36); Mean Corpuscular Hemoglobin 28.8 PG (26-34); Mean Corpuscular Volume 84.3 fL (80-100); Monocytes Absolute Auto 700 /uL (0-900); Monocytes Percent Auto 5.8 % (3-14); Neutrophils Absolute Auto 7400 /uL (1500-7000); Neutrophils Percent Auto 58.4 % (50-75); Platelet Count 306 X10^3/uL (150-400); Red Blood Cell Count 5.33 X10^6/uL (4.0-5.2); Red Cell Distribution Width 12.8 % (11.6-14.8); White Blood Cell Count 12.7 X10^3/uL (4.5-11.0)
[2020-01-07 10:01] LABS: Alanine Aminotransferase 51 IU/L (<35); Albumin 4.3 g/dL (3.5-5.0); Albumin Globulin Ratio 1.5 (1.0-2.8); Alkaline Phosphatase 145 U/L (38-126); Aspartate Aminotransferase 41 IU/L (14-36); BUN Creatinine Ratio 24.4 (6-22); Bilirubin Total 0.6 mg/dL (0.2-1.3); Blood Urea Nitrogen 22 mg/dL (7-17); Calcium 9.8 mg/dL (8.4-10.2); Carbon Dioxide 27 mmol/L (22-32); Chloride 92 mmol/L (98-107); Estimated Glomerular Filt Rate > 60.0 mL/min (>60); Globulin 2.8 g/dL (1.7-4.1); Glucose 467 mg/dL (70-100); HEMOLYSIS < 15 (0-50); Potassium 3.6 mmol/L (3.4-5.1); Sodium 132 mmol/L (137-145); Total Protein 7.1 g/dL (6.3-8.2)
[2020-01-07 10:06] LABS: D Dimer < 200 ng/mL (<230)
[2020-01-07 10:13] LABS: Troponin I < 0.012 ng/mL (0.01-0.034)
[2020-01-07 10:27] LABS: Influenza A - CEPHEID Flu A NEGATIVE (NEGATIVE); Influenza B - CEPHEID Flu B NEGATIVE (NEGATIVE)
[2020-01-07] MEDS: ALBUTEROL 2.5 MG/3 ML NEB (ADULT) 5 MG INH (11:07)
[2020-01-07 11:08] VITALS: O2SAT 98
[2020-01-07 12:08] VITALS: BP 121/68; O2SAT 99
[2020-01-07] MEDS: MAGNESIUM SULFATE 2 GM/50 ML PIGGYBACK IV (12:10)
[2020-01-07 13:00] VITALS: BP 139/76; PULSE 102; O2SAT 99
[2020-01-07 14:30] VITALS: BP 139/76; PULSE 100; RESP 22; O2SAT 97
== END 2020-01-07 14:31 | disposition home or self-care (01) ==
PROVIDERS: Emergency Provider Emergency Medicine; PCP Physician Assistant Medical
DX: J45.41 Moderate persistent asthma with (acute) exacerbation (principal)
CPT/HCPCS: 36415; 71045; 80053; 84484; 85025; 85379; 87040; 87502; 93005; 94150; 94640; 96361; 96374; 99284; J2930; J7613

== ENCOUNTER 2020-12-12 13:01 | Observation (INO) | payer BC, SELFPAY ==
[2020-12-12] VITALS (14 sets, daily range): BP systolic 116–129; BP diastolic 58–75; PULSE 106–123; RESP 16–35; TEMP 36.6–36.9; O2SAT 96–100; BMI 34.8; BMI 35.4
--- NOTE | 2020-12-12 13:15 | DI.RAD.S_ITS ---
PROCEDURE: XR CHEST 1V INDICATIONS: dyspnea, asthma, recent covid vaccination TECHNIQUE: One view of the chest was acquired. COMPARISON: [facility], CR, XR CHEST 1V, 01/07/2020, 9:41. [facility], CR, XR CHEST 2 VIEWS, 01/10/2020, 16:57. FINDINGS: Surgical changes and devices: None. Lungs and pleura: Lungs are clear. No pleural effusions or pneumothorax. Mediastinum: Mediastinal contours appear normal. Heart size is normal. Bones and chest wall: No suspicious bony lesions. Overlying soft tissues appear unremarkable. IMPRESSION: No acute pulmonary process. Dictated by: Dianna Lees M.D. on 12/12/2020 at 13:44 Approved by: Dianna Lees M.D. on 12/12/2020 at 13:44
[2020-12-12] MEDS: ALBUTEROL 0.5% CONTINUOUS NEB 20 MG INH (13:25)
[2020-12-12 13:33] LABS: Prothrombin Time 11.4 SECONDS (10.1-12.7)
[2020-12-12 13:35] LABS: Add Manual Diff / Slide Review NO; Basophils Absolute Auto 0 /uL (0-100); Basophils Percent Auto 0.3 % (0-2); Eosinophils Absolute Auto 0 /uL (0-450); Hematocrit 41.6 % (36-46); Hemoglobin 13.6 g/dL (12.0-16.0); Lymphocytes Absolute Auto 1000 /uL (1100-4500); Lymphocytes Percent Auto 7.5 % (25-40); Mean Corpuscular HGB Conc 32.7 % (30-36); Mean Corpuscular Hemoglobin 27.7 PG (26-34); Mean Corpuscular Volume 84.8 fL (80-100); Monocytes Absolute Auto 200 /uL (0-900); Monocytes Percent Auto 1.2 % (3-14); Neutrophils Absolute Auto 12000 /uL (1500-7000); Platelet Count 345 X10^3/uL (150-400); Red Cell Distribution Width 14.2 % (11.6-14.8); White Blood Cell Count 13.3 X10^3/uL (4.5-11.0)
[2020-12-12 13:36] LABS: Creatine Kinase 110 U/L (30-135); Magnesium 1.9 mg/dL (1.6-2.3); PTT Partial Thromboplastin Tim 33 SECONDS (26.4-36.2)
[2020-12-12] MEDS: methylPREDNISolone 125 MG/2 ML VIAL IV (13:39)
[2020-12-12] MEDS: MAGNESIUM SULFATE 2 GM/50 ML PIGGYBACK IV (13:40)
[2020-12-12] MEDS: SODIUM CHLORIDE 0.9% 1,000 ML 1000 ML IV (13:43)
--- NOTE | 2020-12-12 13:43 | ED_ITS ---
HPI - Asthma General Chief Complaint: Upper Respiratory Symptoms Stated Complaint: asthma, cant breath Time Seen by Provider: 12/12/20 13:08 Source: patient, family and old records reviewed Mode of arrival: Ambulatory Limitations: no limitations History of Present Illness HPI Narrative: This 55-year-old female comes emergency department with complaint of asthma exacerbation. Patient states she did receive her 2nd COVID vaccine in the last week. She has been having worsening breathing issues. She states she also frequently has exacerbations this time of year. She is a frequent visitor to the emergency department during the winter months for her asthma exacerbations. She has currently been on prednisone she had a dose of dexamethasone yesterday and started on 60 mg p.o. today she uses Advair, Flovent and albuterol. Her most recent treatment for DuoNeb was 1 hour prior to arrival. She did have a fever yesterday. She states she was swabbed for COVID which was negative. She has had increasing shortness of breath and felt like her inhaled albuterol has not been helpful. She has had a cough which is had clear sputum. She has not had hemoptysis. She has shortness of breath and chest tightness. She has not had any syncope but has felt lightheaded. She denies any other GI or urinary symptoms currently. She has never been intubated, she has not required BiPAP in the past. She is insulin-dependent diabetic, she states her sugars have been elevated since she has been on the steroids but not above 300. She is accompanied by her today. Related Data Home Medications Medication Instructions Recorded Confirmed cholecalciferol (vitamin D3) 5,000 unit PO DAILY #0 11/21/16 12/01/18 [Vitamin D3] diltiazem HCl [Cartia XT] 120 mg PO Q DAY PRN #0 11/21/16 12/01/18 docusate sodium 200 mg PO QDAY #0 11/21/16 12/01/18 duloxetine [Cymbalta] 60 mg PO QDAY #0 11/21/16 12/01/18 febuxostat [Uloric] 40 mg PO Q DAY #0 11/21/16 12/01/18 fluconazole [Diflucan] 150 mg PO PRN PRN #0 11/21/16 12/01/18 furosemide 40 mg PO DAILY #0 11/21/16 12/01/18 lansoprazole 15 mg PO QDAY #0 11/21/16 12/01/18 montelukast 10 mg PO DAILY #0 11/21/16 12/01/18 spironolactone [Aldactone] 100 mg PO DAILY #0 11/21/16 12/01/18 albuterol sulfate [Ventolin HFA] 2 puff INHALATION Q3H PRN 12/01/18 12/01/18 insulin glargine [Lantus U-100 20 units SUBCUT BEDTIME 12/01/18 12/01/18 Insulin] insulin lispro [Humalog U-100 1 dose SUBCUT PRN PRN 12/01/18 12/01/18 Insulin] Previous Rx's Medication Instructions Recorded prednisone 40 mg PO Q DAY #8 tab 01/17/18 albuterol sulfate 1.25 mg INHALATION Q4H PRN #90 ml 12/01/18 ipratropium-albuterol 3 ml INHALATION QID PRN #180 ml 12/01/18 doxycycline hyclate 100 mg PO BID #20 cap 12/04/18 dexamethasone [Decadron] 4 mg PO DAILY #1 tab 01/07/20 Allergies Allergy/AdvReac Type Severity Reaction Status Date / Time levofloxacin [From LEVAQUIN] Allergy Intermediate RASH Verified 10/23/19 17:55 aspirin [ASPIRIN] Allergy Unknown Verified 10/23/19 17:55 azithromycin [AZITHROMYCIN] Allergy Unknown Verified 10/23/19 17:55 diclofenac [DICLOFENAC] Allergy Unknown Verified 10/23/19 17:55 tramadol [TRAMADOL] Allergy Unknown Verified 10/23/19 17:55 Review of Systems Review of Systems ROS Unobtainable: All systems reviewed & are unremarkable except as noted in HPI and below Patient History Medical History Asthma Gout HTN (hypertension) Hypoaldosteronism Type 2 diabetes mellitus Surgical History H/O: hysterectomy History of cholecystectomy Previous section Social History household members: spouse Smoking Status: Never smoker alcohol intake: current Smoking Status: Never smoker alcohol intake frequency: 0-2 drinks per day Substance Use Type: does not use Exam Narrative Exam Narrative: GEN: well nourished, well appearing female, alert and oriented x 3, patient appears to be in moderate to severe distress. HEENT: Atraumatic, pupils are equal round reactive to light, extraocular movements are intact, nares are clear HEART: Tachycardic but regular rate and rhythm without murmur, clicks, rubs. Pulses are equal in upper extremities LUNGS:Lungs decreased bilaterally without wheezes, no rales, crackles, chest moves symmetrically, positive for tachypnea as well as accessory muscle use in the SCM. Patient is able to speak in 3-4 words. No stridor. No audible wheeze. ABD:bowel sounds normal, soft, non-tender, no guarding, rebound, rigidity, no masses noted, no hepatosplenomegaly MSCL: Non-tender, no muscle atrophy, muscles strength 5/5 upper and lower extremities, full range of motion NEURO:CN 2-12 intact, sensation normal SKIN: No rash, no erythema or hives appreciated. Initial Vital Signs Initial Vital Signs: Vital Signs Pulse Rate 112 H 12/12/20 13:17 Respiratory Rate 28 H 12/12/20 13:17 Pulse Oximetry 97 12/12/20 13:17 Course Orders Ordered: ED Orders 12/12/20 13:14 Consult to Respiratory Therapy Evaluate & Treat EKG-12 Lead Stat 12/12/20 13:15 XR chest 1V Stat 12/12/20 13:17 Complete Blood Count AUTO DIFF Stat Comprehensive Metabolic Panel Stat D Dimer Stat Lactate (Lactic Acid) Stat Magnesium Stat NT-proBNP (BNP-Adult 18+) Stat Partial Thromboplastin Time Stat Procalcitonin Stat Prothrombin Time INR Stat Troponin & CK Cardiac Panel Stat 12/12/20 13:57 Respiratory Panel (Film Array) Stat 12/12/20 15:23 Venous Blood Gas Stat 12/12/20 17:23 Lactate (Lactic Acid) Stat Acetaminophen (Acetaminophen 325 Mg Tablet) 650 mg PO Q6HR PRN PRN Reason: Fever/Mild Pain (1-3) Albuterol/Ipratropium (Albuterol/Ipratropium 3 Ml Ampul) 3 ml INH [id number] MIGUEL Albuterol/Ipratropium (Albuterol/Ipratropium 3 Ml Ampul) 3 ml INH RTQ4HR PRN PRN Reason: Shortness Of Breath Enoxaparin Sodium (Enoxaparin 40 Mg/0.4 Ml Syringe) 40 mg SUBCUT DAILY MIGUEL Sodium Chloride (Normal Saline 0.9%) 1,000 mls @ 100 mls/hr IV CONT MIGUEL Last Admin: 12/12/20 18:06 Dose: 100 mls/hr Documented by: ERICKA Montelukast Sodium (Montelukast 10 Mg Tablet) 10 mg PO DAILY MIGUEL Ondansetron HCl (Ondansetron 4 Mg/2 Ml Inj) 4 mg IV Q8HR PRN PRN Reason: Nausea And Vomiting Prednisone (Prednisone 20 Mg Tablet) 60 mg PO DAILY MIGUEL Fluticasone/Salmeterol (Fluticasone/Salmeterol 250/50 60 Puff Diskus) 1 puff INH RTBID MIGUEL Discontinued Medications Albuterol (Albuterol 0.5% Continuous Neb) 20 mg INH Q1H MIGUEL Last Admin: 12/12/20 13:25 Dose: 20 mg Documented by: [email or web address] Albuterol (Albuterol 2.5 Mg/3 Ml Neb (Adult)) 2.5 mg INH [id number] PRN PRN Reason: Shortness Of Breath Sodium Chloride (Normal Saline 0.9%) 1,000 mls @ 1,000 mls/hr IV BOLUS ONE Stop: 12/12/20 14:13 Last Infusion: 12/12/20 15:05 Dose: 0 mls/hr Documented by: Admin: 12/12/20 13:43 Dose: 1,000 mls/hr Documented by: ERICKA Magnesium Sulfate (Magnesium Sulfate) 2 gm in 50 mls @ 25 mls/hr IV NOW ONE Stop: 12/12/20 15:13 Last Infusion: 12/12/20 15:26 Dose: 0 mls/hr Documented by: ERICKA Cosigned by: [email or web address] Admin: 12/12/20 13:40 Dose: 25 mls/hr Documented by: ERICKA Cosigned by: [email or web address] Sodium Chloride (Normal Saline 0.9%) 500 mls @ 1,000 mls/hr IV BOLUS ONE Stop: 12/12/20 15:56 Last Infusion: 12/12/20 17:06 Dose: 0 mls/hr Documented by: Admin: 12/12/20 15:33 Dose: 1,000 mls/hr Documented by: ERICKA Levalbuterol HCl (Levalbuterol 1.25 Mg/0.5 Ml Neb) 1.25 mg INH [id number] PRN PRN Reason: shortness of breath Methylprednisolone (Methylprednisolone 125 Mg/2 Ml Vial) 125 mg IV NOW ONE Stop: 12/12/20 13:15 Last Admin: 12/12/20 13:39 Dose: 125 mg Documented by: ERICKA Reevaluation(s) Reevaluation #1: Patient is receiving continuous albuterol neb treatment. Stephanie ent has had some increased air movement, she is developing a little bit of wheeze. She states she feels significantly better and her peak flows have improved to 250. She is still tachypneic. Time: 13:30 Reevaluation #2: Patient appears improved. She still has some tachypnea. Reviewed labs and findings and discussed observation/admission. Patient does feel that she is continuing to improve but is not at her normal baseline. Time: 14:57 Reevaluation #3: Patient has not been clinically worsening, she does not appear to be fatiguing. Lactate continues to rise. Patient is off neb and O2 in room and maintaining O2 saturation on room air. Time: 17:00 Consultations Consultation #1: Patient has clinically improved, VBG shows acidosis 7.31, patient lactate is right which is concerning and consultation with Dr. Nava for observation or admission. Dr. Marin would like to continue to monitor the patient in the ED to see if she has continued improvement and if lactate will start to trend downwards. Dr. Marin in the department for evaluation of patient and plan for admission. Has asked for fluids at 100 cc/hour. We did review patient's most recent lactate of 11.9. Patient does not appear clinically worsening. Vital Signs Vital signs: Vital Signs - 8 hr 12/12/20 13:17 12/12/20 13:30 12/12/20 13:33 Temperature 98.4 F Pulse Rate 112 H 108 H Respiratory Rate 28 H 35 H Blood Pressure 126/65 Pulse Oximetry 97 98 100 12/12/20 14:05 12/12/20 14:45 12/12/20 15:32 Temperature Pulse Rate 123 H 119 H 109 H Respiratory Rate 24 20 18 Blood Pressure Pulse Oximetry 97 97 96 12/12/20 15:44 12/12/20 15:56 12/12/20 16:38 Temperature Pulse Rate 121 H 122 H Respiratory Rate 25 H 16 Blood Pressure 116/58 L 118/65 Pulse Oximetry 97 96 98 MDM - Asthma Lab Data Attestation: I reviewed the patient's lab results. Result diagrams: 12/12/20 13:17 12/12/20 13:17 Labs: Lab Results 12/12/20 12/12/20 12/12/20 Range/Units 13:17 13:17 13:17 WBC 13.3 H (4.5-11.0) X10^3/uL RBC 4.90 (4.0-5.2) X10^6/uL Hgb 13.6 (12.0-16.0) g/dL Hct 41.6 (36-46) % MCV 84.8 (80-100) fL MCH 27.7 (26-34) PG MCHC 32.7 (30-36) % RDW 14.2 (11.6-14.8) % Plt Count 345 (150-400) X10^3/uL Neut % (Auto) 91.0 H (50-75) % Lymph % (Auto) 7.5 L (25-40) % [place] % (Auto) 1.2 L (3-14) % Eos % (Auto) 0.0 L (2-4) % Baso % (Auto) 0.3 (0-2) % Neut # (Auto) 21874 H (1075-2368) /uL Lymph # (Auto) 1000 L (6932-5558) /uL [place] # (Auto) 200 (0-900) /uL Eos # (Auto) 0 (0-450) /uL Baso # (Auto) 0 (0-100) /uL PT 11.4 (10.1-12.7) SECONDS INR 1.0 (0.9-1.3) APTT 33 (26.4-36.2) SECONDS D-Dimer < 200 (<230) ng/mL VBG pH (7.33-7.43) VBG pCO2 (45-50) mmHg VBG pO2 (35-45) mmHg VBG HCO3 (23-28) mmol/L VBG Total CO2 (24-29) mmol/L VBG O2 Saturation (70-75) % VBG Base Excess (0-4) mmol/L Sodium (137-145) mmol/L Potassium (3.4-5.1) mmol/L Chloride (98-107) mmol/L Carbon Dioxide (22-32) mmol/L BUN (7-17) mg/dL Creatinine (0.52-1.04) mg/dL Estimated GFR (>60) mL/min BUN/Creatinine Ratio (6-22) Glucose (70-100) mg/dL Lactate (0.7-2.1) mmol/L Calcium (8.4-10.2) mg/dL Magnesium 1.9 (1.6-2.3) mg/dL Total Bilirubin (0.2-1.3) mg/dL AST (14-36) IU/L ALT (<35) IU/L Alkaline Phosphatase (38-126) U/L Total Creatine Kinase 110 (30-135) U/L CK-MB (CK-2) 1.43 (<2.37) ng/mL CK-MB (CK-2) Rel Index 1.3 L (1.5-5.0) % Troponin I < 0.012 (0.01-0.034) ng/mL NT-Pro-B Natriuret Pep 146 H (<125) pg/mL Total Protein (6.3-8.2) g/dL Albumin (3.5-5.0) g/dL Globulin (1.7-4.1) g/dL Albumin/Globulin Ratio (1.0-2.8) Procalcitonin (<0.5) ng/mL Chlamy pneumoniae PCR (Not Detect) Adenovirus (PCR) (Not Detect) B.parapertussis DNA PCR (Not Detect) Coronavirus OC43 (PCR) (Not Detect) Coronavirus HKU1 (PCR) (Not Detect) Coronavirus 229E (PCR) (Not Detect) SARS-CoV-2 (PCR) (Not Detecte) Coronavirus NL63 (PCR) (Not Detect) Human Metapneumovir PCR (Not Detect) Influenza Type A (PCR) (Not Detect) Influenza Type B (PCR) (Not Detect) M. pneumoniae (PCR) (Not Detect) Parainfluenza 1 (PCR) (Not Detect) Parainfluenza 2 (PCR) (Not Detect) Parainfluenza 3 (PCR) (Not Detect) Parainfluenza 4 (PCR) (Not Detect) RSV (PCR) (Not Detect) Entero/Rhino (PCR) (Not Detect) 12/12/20 12/12/20 12/12/20 Range/Units 13:17 13:17 13:17 WBC (4.5-11.0) X10^3/uL RBC (4.0-5.2) X10^6/uL Hgb (12.0-16.0) g/dL Hct (36-46) % MCV (80-100) fL MCH (26-34) PG MCHC (30-36) % RDW (11.6-14.8) % Plt Count (150-400) X10^3/uL Neut % (Auto) (50-75) % Lymph % (Auto) (25-40) % [place] % (Auto) (3-14) % Eos % (Auto) (2-4) % Baso % (Auto) (0-2) % Neut # (Auto) (4841-8012) /uL Lymph # (Auto) (4722-6893) /uL [place] # (Auto) (0-900) /uL Eos # (Auto) (0-450) /uL Baso # (Auto) (0-100) /uL PT (10.1-12.7) SECONDS INR (0.9-1.3) APTT (26.4-36.2) SECONDS D-Dimer (<230) ng/mL VBG pH (7.33-7.43) VBG pCO2 (45-50) mmHg VBG pO2 (35-45) mmHg VBG HCO3 (23-28) mmol/L VBG Total CO2 (24-29) mmol/L VBG O2 Saturation (70-75) % VBG Base Excess (0-4) mmol/L Sodium 137 (137-145) mmol/L Potassium 4.3 (3.4-5.1) mmol/L Chloride 103 (98-107) mmol/L Carbon Dioxide 20 L (22-32) mmol/L BUN 20 H (7-17) mg/dL Creatinine 1.02 (0.52-1.04) mg/dL Estimated GFR 55.9 L (>60) mL/min BUN/Creatinine Ratio 19.6 (6-22) Glucose 255 H (70-100) mg/dL Lactate 6.0 H* (0.7-2.1) mmol/L Calcium 10.5 H (8.4-10.2) mg/dL Magnesium (1.6-2.3) mg/dL Total Bilirubin 0.2 (0.2-1.3) mg/dL AST 31 (14-36) IU/L ALT 32 (<35) IU/L Alkaline Phosphatase 98 (38-126) U/L Total Creatine Kinase (30-135) U/L CK-MB (CK-2) (<2.37) ng/mL CK-MB (CK-2) Rel Index (1.5-5.0) % Troponin I (0.01-0.034) ng/mL NT-Pro-B Natriuret Pep (<125) pg/mL Total Protein 7.1 (6.3-8.2) g/dL Albumin 4.5 (3.5-5.0) g/dL Globulin 2.6 (1.7-4.1) g/dL Albumin/Globulin Ratio 1.7 (1.0-2.8) Procalcitonin < 0.05 (<0.5) ng/mL Chlamy pneumoniae PCR (Not Detect) Adenovirus (PCR) (Not Detect) B.parapertussis DNA PCR (Not Detect) Coronavirus OC43 (PCR) (Not Detect) Coronavirus HKU1 (PCR) (Not Detect) Coronavirus 229E (PCR) (Not Detect) SARS-CoV-2 (PCR) (Not Detecte) Coronavirus NL63 (PCR) (Not Detect) Human Metapneumovir PCR (Not Detect) Influenza Type A (PCR) (Not Detect) Influenza Type B (PCR) (Not Detect) M. pneumoniae (PCR) (Not Detect) Parainfluenza 1 (PCR) (Not Detect) Parainfluenza 2 (PCR) (Not Detect) Parainfluenza 3 (PCR) (Not Detect) Parainfluenza 4 (PCR) (Not Detect) RSV (PCR) (Not Detect) Entero/Rhino (PCR) (Not Detect) 12/12/20 12/12/20 12/12/20 Range/Units 13:57 15:23 15:23 WBC (4.5-11.0) X10^3/uL RBC (4.0-5.2) X10^6/uL Hgb (12.0-16.0) g/dL Hct (36-46) % MCV (80-100) fL MCH (26-34) PG MCHC (30-36) % RDW (11.6-14.8) % Plt Count (150-400) X10^3/uL Neut % (Auto) (50-75) % Lymph % (Auto) (25-40) % [place] % (Auto) (3-14) % Eos % (Auto) (2-4) % Baso % (Auto) (0-2) % Neut # (Auto) (8300-0927) /uL Lymph # (Auto) (5555-6813) /uL [place] # (Auto) (0-900) /uL Eos # (Auto) (0-450) /uL Baso # (Auto) (0-100) /uL PT (10.1-12.7) SECONDS INR (0.9-1.3) APTT (26.4-36.2) SECONDS D-Dimer (<230) ng/mL VBG pH 7.31 L (7.33-7.43) VBG pCO2 32.1 L (45-50) mmHg VBG pO2 44 (35-45) mmHg VBG HCO3 16 L (23-28) mmol/L VBG Total CO2 17 L (24-29) mmol/L VBG O2 Saturation 76 H (70-75) % VBG Base Excess -10.0 L (0-4) mmol/L Sodium (137-145) mmol/L Potassium (3.4-5.1) mmol/L Chloride (98-107) mmol/L Carbon Dioxide (22-32) mmol/L BUN (7-17) mg/dL Creatinine (0.52-1.04) mg/dL Estimated GFR (>60) mL/min BUN/Creatinine Ratio (6-22) Glucose (70-100) mg/dL Lactate 9.5 H* (0.7-2.1) mmol/L Calcium (8.4-10.2) mg/dL Magnesium (1.6-2.3) mg/dL Total Bilirubin (0.2-1.3) mg/dL AST (14-36) IU/L ALT (<35) IU/L Alkaline Phosphatase (38-126) U/L Total Creatine Kinase (30-135) U/L CK-MB (CK-2) (<2.37) ng/mL CK-MB (CK-2) Rel Index (1.5-5.0) % Troponin I (0.01-0.034) ng/mL NT-Pro-B Natriuret Pep (<125) pg/mL Total Protein (6.3-8.2) g/dL Albumin (3.5-5.0) g/dL Globulin (1.7-4.1) g/dL Albumin/Globulin Ratio (1.0-2.8) Procalcitonin (<0.5) ng/mL Chlamy pneumoniae PCR Not detected (Not Detect) Adenovirus (PCR) Not detected (Not Detect) B.parapertussis DNA PCR Not detected (Not Detect) Coronavirus OC43 (PCR) Not detected (Not Detect) Coronavirus HKU1 (PCR) Not detected (Not Detect) Coronavirus 229E (PCR) Not detected (Not Detect) SARS-CoV-2 (PCR) Not detected (Not Detecte) Coronavirus NL63 (PCR) Not detected (Not Detect) Human Metapneumovir PCR Not detected (Not Detect) Influenza Type A (PCR) Not detected (Not Detect) Influenza Type B (PCR) Not detected (Not Detect) M. pneumoniae (PCR) Not detected (Not Detect) Parainfluenza 1 (PCR) Not detected (Not Detect) Parainfluenza 2 (PCR) Not detected (Not Detect) Parainfluenza 3 (PCR) Not detected (Not Detect) Parainfluenza 4 (PCR) Not detected (Not Detect) RSV (PCR) Not detected (Not Detect) Entero/Rhino (PCR) Detected H (Not Detect) 12/12/20 Range/Units 17:23 WBC (4.5-11.0) X10^3/uL RBC (4.0-5.2) X10^6/uL Hgb (12.0-16.0) g/dL Hct (36-46) % MCV (80-100) fL MCH (26-34) PG MCHC (30-36) % RDW (11.6-14.8) % Plt Count (150-400) X10^3/uL Neut % (Auto) (50-75) % Lymph % (Auto) (25-40) % [place] % (Auto) (3-14) % Eos % (Auto) (2-4) % Baso % (Auto) (0-2) % Neut # (Auto) (9929-4218) /uL Lymph # (Auto) (4472-8122) /uL [place] # (Auto) (0-900) /uL Eos # (Auto) (0-450) /uL Baso # (Auto) (0-100) /uL PT (10.1-12.7) SECONDS INR (0.9-1.3) APTT (26.4-36.2) SECONDS D-Dimer (<230) ng/mL VBG pH (7.33-7.43) VBG pCO2 (45-50) mmHg VBG pO2 (35-45) mmHg VBG HCO3 (23-28) mmol/L VBG Total CO2 (24-29) mmol/L VBG O2 Saturation (70-75) % VBG Base Excess (0-4) mmol/L Sodium (137-145) mmol/L Potassium (3.4-5.1) mmol/L Chloride (98-107) mmol/L Carbon Dioxide (22-32) mmol/L BUN (7-17) mg/dL Creatinine (0.52-1.04) mg/dL Estimated GFR (>60) mL/min BUN/Creatinine Ratio (6-22) Glucose (70-100) mg/dL Lactate 11.9 H* (0.7-2.1) mmol/L Calcium (8.4-10.2) mg/dL Magnesium (1.6-2.3) mg/dL Total Bilirubin (0.2-1.3) mg/dL AST (14-36) IU/L ALT (<35) IU/L Alkaline Phosphatase (38-126) U/L Total Creatine Kinase (30-135) U/L CK-MB (CK-2) (<2.37) ng/mL CK-MB (CK-2) Rel Index (1.5-5.0) % Troponin I (0.01-0.034) ng/mL NT-Pro-B Natriuret Pep (<125) pg/mL Total Protein (6.3-8.2) g/dL Albumin (3.5-5.0) g/dL Globulin (1.7-4.1) g/dL Albumin/Globulin Ratio (1.0-2.8) Procalcitonin (<0.5) ng/mL Chlamy pneumoniae PCR (Not Detect) Adenovirus (PCR) (Not Detect) B.parapertussis DNA PCR (Not Detect) Coronavirus OC43 (PCR) (Not Detect) Coronavirus HKU1 (PCR) (Not Detect) Coronavirus 229E (PCR) (Not Detect) SARS-CoV-2 (PCR) (Not Detecte) Coronavirus NL63 (PCR) (Not Detect) Human Metapneumovir PCR (Not Detect) Influenza Type A (PCR) (Not Detect) Influenza Type B (PCR) (Not Detect) M. pneumoniae (PCR) (Not Detect) Parainfluenza 1 (PCR) (Not Detect) Parainfluenza 2 (PCR) (Not Detect) Parainfluenza 3 (PCR) (Not Detect) Parainfluenza 4 (PCR) (Not Detect) RSV (PCR) (Not Detect) Entero/Rhino (PCR) (Not Detect) Imaging Data Chest x-ray: Radiologist's Impression: [address] [id number] ReportSigned Patient: Daisy Morrow MMR#: [id number]: [id number]:[id number]/Sex: 55 / FDate of Service: 12/12/20Loc: EDAccession Number: [id number] Procedure: XR chest 1V Ordering Provider: Yadira Josue D.O. PROCEDURE: XR CHEST 1V INDICATIONS: dyspnea, asthma, recent covid vaccination TECHNIQUE: One view of the chest was acquired. COMPARISON: [facility], CR, XR CHEST 1V, 01/07/2020, 9:41. [facility], CR, XR CHEST 2 VIEWS, 01/10/2020, 16:57. FINDINGS: Surgical changes and devices: None. Lungs and pleura: Lungs are clear. No pleural effusions or pneumothorax. Mediastinum: Mediastinal contours appear normal. Heart size is normal. Bones and chest wall: No suspicious bony lesions. Overlying soft tissues appear unremarkable. IMPRESSION: No acute pulmonary process. Dictated by: Dianna Lees M.D. on 12/12/2020 at 13:44 Approved by: Dianna Lees M.D. on 12/12/2020 at 13:4 ECG Data Attestation: I personally reviewed and interpreted this ECG as follows: MDM Narrative Medical decision making narrative: This is a 55-year-old female who comes to the emergency department with acute on chronic exacerbation of her asthma/COPD. Patient states she did have her COVID vaccine approximately week ago and that seemed to have a sudden onset of symptoms and slowly worsening over the last several days. She was started on dexamethasone IM yesterday with a p.o. prednisone today of 60 mg. She continues to be worsening and does not feel that she is responding to her home albuterol or other inhalers. Patient is quite tachypneic she is not wheezing and does not appear to be moving any air. She was in the mid to upper 80s on her room air saturation initially. Patient was placed on the continuous neb. She has been continuously tachycardic throughout and after her nebulizer treatment was completed. Her labs are negative for troponin, D-dimer, she does not any chest x-ray changes. COVID is negative. Patient's blood gas shows she is acidotic. She did seem to respond to Solu- Medrol, magnesium and the neb treatment. Respiratory panel is positive for entero/rhinovirus and patient states she frequently has severe exacerbations with viral illnesses. Her lactate continues to rise even after a L of fluids followed by 500 cc/hr bolus. Patient does not appear to be fatiguing or be worsening in her symptoms. Her peak flow has been improving although not insanely. Discharge Plan Departure Patient Disposition: Admitted as Observation Clinical Impression: Asthma exacerbation, Rhinovirus infection Admit Date/Time: 12/12/20 17:44 Admit Provider: Lobo Marin
[2020-12-12 13:47] LABS: D Dimer < 200 ng/mL (<230)
[2020-12-12 13:49] LABS: NT-proBNP (BNP-Adult 18+) 146 pg/mL (<125); Troponin I < 0.012 ng/mL (0.01-0.034)
[2020-12-12 13:52] LABS: CKMB % Relative Index 1.3 % (1.5-5.0); Creatine Kinase MB 1.43 ng/mL (<2.37)
[2020-12-12 13:57] LABS: Albumin 4.5 g/dL (3.5-5.0); Albumin Globulin Ratio 1.7 (1.0-2.8); Alkaline Phosphatase 98 U/L (38-126); Aspartate Aminotransferase 31 IU/L (14-36); BUN Creatinine Ratio 19.6 (6-22); Bilirubin Total 0.2 mg/dL (0.2-1.3); Blood Urea Nitrogen 20 mg/dL (7-17); Calcium 10.5 mg/dL (8.4-10.2); Carbon Dioxide 20 mmol/L (22-32); Chloride 103 mmol/L (98-107); Estimated Glomerular Filt Rate 55.9 mL/min (>60); Globulin 2.6 g/dL (1.7-4.1); Glucose 255 mg/dL (70-100); HEMOLYSIS < 15 (0-50); Potassium 4.3 mmol/L (3.4-5.1); Sodium 137 mmol/L (137-145); Total Protein 7.1 g/dL (6.3-8.2)
[2020-12-12 14:05] LABS: Alanine Aminotransferase 32 IU/L (<35)
[2020-12-12 14:14] LABS: Procalcitonin < 0.05 ng/mL (<0.5)
[2020-12-12 15:20] LABS: Reflexed Lactate in 2 Hours Y
[2020-12-12 15:22] LABS: Adenovirus Not Detected (Not Detect); Bordetella pertussis Not Detected (Not Detect); Chlamydophila pneumoniae Not Detected (Not Detect); Coronavirus 229E Not Detected (Not Detect); Coronavirus HKU1 Not Detected (Not Detect); Coronavirus NL 63 Not Detected (Not Detect); Coronavirus OC43 Not Detected (Not Detect); Human Metapneumovirus Not Detected (Not Detect); Human Rhinovirus/Enterovirus Detected (Not Detect); Influenza A Not Detected (Not Detect); Influenza B Not Detected (Not Detect); Mycoplasma pneumoniae Not Detected (Not Detect); Parainfluenza Virus 1 Not Detected (Not Detect); Parainfluenza Virus 2 Not Detected (Not Detect); Parainfluenza Virus 3 Not Detected (Not Detect); Parainfluenza Virus 4 Not Detected (Not Detect); Respiratory Syncytial Virus Not Detected (Not Detect); SARS- CoV-2 Not Detected (Not Detecte)
[2020-12-12 15:31] LABS: HCO3 VBG 16 mmol/L (23-28); PCO2 VBG 32.1 mmHg (45-50); PO2 VBG 44 mmHg (35-45); pH VBG 7.31 (7.33-7.43)
[2020-12-12 15:32] LABS: Oxygen Saturation VBG 76 % (70-75); Total CO2 VBG 17 mmol/L (24-29)
[2020-12-12] MEDS: SODIUM CHLORIDE 0.9% 500 ML 1000 ML IV (15:33)
--- NOTE | 2020-12-12 15:33 | RT ---
CONTINUING TO CHECK ON PT for large vol neb. Very SOB after ambulating to Bathroom, recovers. VBG drawn & evaluated on RA, rr 20, Oxim reading 96%.
[2020-12-12 15:52] LABS: Lactate 2HR (Lactic Acid Rflx) 9.5 mmol/L (0.7-2.1)
[2020-12-12 17:46] LABS: Lactate (Lactic Acid) 11.9 mmol/L (0.7-2.1)
--- NOTE | 2020-12-12 17:46 | PM.HP.1 ---
History of Present Illness History of Present Illness Date Patient Seen: 12/12/20 Time Patient Seen: 17:46 Chief complaint: asthma, cant breath Narrative: Daisy Morrow is a 55-year-old female with a past medical history of severe persistent asthma, type 2 diabetes on insulin pump therapy, hypoaldosteronism, gout, and hypertension who presented with worsening shortness of breath. Patient states that she has been suffering with an asthma exacerbation since around November 25. She has had 3 steroid tapers over that period of time, most recently starting 2 days ago. 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 This initially help with her symptoms but she received the 2nd COVID-19 shot on Wednesday, and after that she has had worsening shortness of breath which was severe enough that she sought care in the emergency room today. She denies any fevers or chills, she does complain of an increased cough but without sputum production. She has not had any chest pain or palpitations, denies any nausea or vomiting, and has had no abdominal pain. In the emergency room she was tachycardic and tachypneic as high as the mid 30s. She was saturating well on room air but appeared in respiratory distress. She was started on continuous nebulizers and was given some magnesium with some improvement in her symptoms, but she remained still short of breath with increased work of breathing. EKG is pending. CXR was unremarkable. Laboratory evaluation revealed a mild leukocytosis at 13.3, but otherwise unremarkable CBC. Chemistries revealed a glucose of 255, lactate in the ER has been up trending since her continuous albuterol up to 11.9. Troponin was negative. Procalcitonin is negative. Respiratory PCR was positive for entero/rhinovirus. Patient was admitted under observation for further management of her asthma exacerbation. Patient History Medical History Asthma Gout HTN (hypertension) Hypoaldosteronism Type 2 diabetes mellitus Surgical History H/O: hysterectomy History of cholecystectomy Previous section Family & Social History Safety & Behavioral: Feels Safe in Current Yes Environment Been Physically Hurt or No Threatened By a Person Tobacco & Substance use: Smoking Status Never smoker alcohol intake frequency 0-2 drinks per day Substance Use Type does not use Meds Home Medications and Allergies Home Medications Medication Instructions Recorded Confirmed Type cholecalciferol (vitamin D3) 5,000 unit PO DAILY #0 11/21/16 12/01/18 History [Vitamin D3] diltiazem HCl [Cartia XT] 120 mg PO Q DAY PRN #0 11/21/16 12/01/18 History docusate sodium 200 mg PO QDAY #0 11/21/16 12/01/18 History duloxetine [Cymbalta] 60 mg PO QDAY #0 11/21/16 12/01/18 History febuxostat [Uloric] 40 mg PO Q DAY #0 11/21/16 12/01/18 History fluconazole [Diflucan] 150 mg PO PRN PRN #0 11/21/16 12/01/18 History furosemide 40 mg PO DAILY #0 11/21/16 12/01/18 History lansoprazole 15 mg PO QDAY #0 11/21/16 12/01/18 History montelukast 10 mg PO DAILY #0 11/21/16 12/01/18 History spironolactone [Aldactone] 100 mg PO DAILY #0 11/21/16 12/01/18 History prednisone 40 mg PO Q DAY #8 tab 01/17/18 12/01/18 Rx albuterol sulfate 1.25 mg INHALATION Q4H PRN #90 ml 12/01/18 Rx albuterol sulfate [Ventolin HFA] 2 puff INHALATION Q3H PRN 12/01/18 12/01/18 History insulin glargine [Lantus U-100 20 units SUBCUT BEDTIME 12/01/18 12/01/18 History Insulin] insulin lispro [Humalog U-100 1 dose SUBCUT PRN PRN 12/01/18 12/01/18 History Insulin] ipratropium-albuterol 3 ml INHALATION QID PRN #180 ml 12/01/18 Rx doxycycline hyclate 100 mg PO BID #20 cap 12/04/18 Rx dexamethasone [Decadron] 4 mg PO DAILY #1 tab 01/07/20 Rx Allergies Allergy/AdvReac Type Severity Reaction Status Date / Time levofloxacin [From LEVAQUIN] Allergy Intermediate RASH Verified 12/09/19 17:55 aspirin [ASPIRIN] Allergy Unknown Verified 10/23/19 17:55 azithromycin [AZITHROMYCIN] Allergy Unknown Verified 10/23/19 17:55 diclofenac [DICLOFENAC] Allergy Unknown Verified 10/23/19 17:55 tramadol [TRAMADOL] Allergy Unknown Verified 10/23/19 17:55 Review of Systems Review of Systems Narrative: All other systems reviewed with the patient and are negative unless otherwise stated. Exam Vital Signs (past 8 hours): - 12/12/20 13:17 12/12/20 13:30 12/12/20 13:33 Temperature 98.4 F Pulse Rate 112 H 108 H Respiratory Rate 28 H 35 H Blood Pressure 126/65 Pulse Oximetry 97 98 100 12/12/20 14:05 12/12/20 14:45 12/12/20 15:32 Temperature Pulse Rate 123 H 119 H 109 H Respiratory Rate 24 20 18 Blood Pressure Pulse Oximetry 97 97 96 12/12/20 15:44 12/12/20 15:56 12/12/20 16:38 Temperature Pulse Rate 121 H 122 H Respiratory Rate 25 H 16 Blood Pressure 116/58 L 118/65 Pulse Oximetry 97 96 98 Oxygen Delivery Method Room Air Narrative Exam Narrative: GENERAL APPEARANCE: Well developed, well nourished, female. No acute distress but gets winded with prolonged sentences. Mildly increased work of breathing. SKIN: Inspection of the skin reveals no rashes, ulcerations or petechiae. HEENT: Normocephalic atraumatic, extraocular muscles are intact, oropharynx is clear and mucous membranes are dry, neck is supple without adenopathy NECK: Supple and symmetric. There was no thyroid enlargement, and no tenderness, or masses were felt. CHEST: Normal AP diameter and normal contour without any kyphoscoliosis. LUNGS: Auscultation of the lungs revealed minimal scattered wheezing without rhonchi or rales. There was mildly increased work of breathing. CARDIOVASCULAR: There was a regular rate and rhythm without any murmurs, gallops, rubs. Peripheral pulses were 2+ and symmetric. ABDOMEN: Soft and nontender with normal bowel sounds. No ascites was noted. MUSCULOSKELETAL: There was no tenderness or effusions noted. Muscle strength and tone were normal. EXTREMITIES: No cyanosis, clubbing or edema. NEUROLOGIC: Alert and oriented x 3. Normal affect. Strength is +5/5 in the Upper Extremities and Lower Extremities Bilaterally. Objective Imaging Chest x-ray: My impression: No acute cardiopulmonary disease. Radiologist's impression: PROCEDURE: XR CHEST 1V INDICATIONS: dyspnea, asthma, recent covid vaccination TECHNIQUE: One view of the chest was acquired. COMPARISON: [facility], CR, XR CHEST 1V, 01/07/2020, 9:41. [facility], CR, XR CHEST 2 VIEWS, 01/10/2020, 16:57. FINDINGS: Surgical changes and devices: None. Lungs and pleura: Lungs are clear. No pleural effusions or pneumothorax. Mediastinum: Mediastinal contours appear normal. Heart size is normal. Bones and chest wall: No suspicious bony lesions. Overlying soft tissues appear unremarkable. IMPRESSION: No acute pulmonary process. Labs Result Diagrams: 12/12/20 13:17 12/12/20 13:17 Labs: Laboratory Results - last 24 hr 12/12/20 12/12/20 12/12/20 13:17 13:17 13:17 WBC 13.3 H RBC 4.90 Hgb 13.6 Hct 41.6 MCV 84.8 MCH 27.7 MCHC 32.7 RDW 14.2 Plt Count 345 Neut % (Auto) 91.0 H Lymph % (Auto) 7.5 L Todd % (Auto) 1.2 L Eos % (Auto) 0.0 L Baso % (Auto) 0.3 Neut # (Auto) 24431 H Lymph # (Auto) 1000 L Todd # (Auto) 200 Eos # (Auto) 0 Baso # (Auto) 0 PT 11.4 INR 1.0 APTT 33 D-Dimer < 200 VBG pH VBG pCO2 VBG pO2 VBG HCO3 VBG Total CO2 VBG O2 Saturation VBG Base Excess Sodium Potassium Chloride Carbon Dioxide BUN Creatinine Estimated GFR BUN/Creatinine Ratio Glucose Lactate Calcium Magnesium 1.9 Total Bilirubin AST ALT Alkaline Phosphatase Total Creatine Kinase 110 CK-MB (CK-2) 1.43 CK-MB (CK-2) Rel Index 1.3 L Troponin I < 0.012 NT-Pro-B Natriuret Pep 146 H Total Protein Albumin Globulin Albumin/Globulin Ratio Procalcitonin Chlamy pneumoniae PCR Adenovirus (PCR) B.parapertussis DNA PCR Coronavirus OC43 (PCR) Coronavirus HKU1 (PCR) Coronavirus 229E (PCR) SARS-CoV-2 (PCR) Coronavirus NL63 (PCR) Human Metapneumovir PCR Influenza Type A (PCR) Influenza Type B (PCR) M. pneumoniae (PCR) Parainfluenza 1 (PCR) Parainfluenza 2 (PCR) Parainfluenza 3 (PCR) Parainfluenza 4 (PCR) RSV (PCR) Entero/Rhino (PCR) 12/12/20 12/12/20 12/12/20 13:17 13:17 13:17 WBC RBC Hgb Hct MCV MCH MCHC RDW Plt Count Neut % (Auto) Lymph % (Auto) Todd % (Auto) Eos % (Auto) Baso % (Auto) Neut # (Auto) Lymph # (Auto) Todd # (Auto) Eos # (Auto) Baso # (Auto) PT INR APTT D-Dimer VBG pH VBG pCO2 VBG pO2 VBG HCO3 VBG Total CO2 VBG O2 Saturation VBG Base Excess Sodium 137 Potassium 4.3 Chloride 103 Carbon Dioxide 20 L BUN 20 H Creatinine 1.02 Estimated GFR 55.9 L BUN/Creatinine Ratio 19.6 Glucose 255 H Lactate 6.0 H* Calcium 10.5 H Magnesium Total Bilirubin 0.2 AST 31 ALT 32 Alkaline Phosphatase 98 Total Creatine Kinase CK-MB (CK-2) CK-MB (CK-2) Rel Index Troponin I NT-Pro-B Natriuret Pep Total Protein 7.1 Albumin 4.5 Globulin 2.6 Albumin/Globulin Ratio 1.7 Procalcitonin < 0.05 Chlamy pneumoniae PCR Adenovirus (PCR) B.parapertussis DNA PCR Coronavirus OC43 (PCR) Coronavirus HKU1 (PCR) Coronavirus 229E (PCR) SARS-CoV-2 (PCR) Coronavirus NL63 (PCR) Human Metapneumovir PCR Influenza Type A (PCR) Influenza Type B (PCR) M. pneumoniae (PCR) Parainfluenza 1 (PCR) Parainfluenza 2 (PCR) Parainfluenza 3 (PCR) Parainfluenza 4 (PCR) RSV (PCR) Entero/Rhino (PCR) 12/12/20 12/12/20 12/12/20 13:57 15:23 15:23 WBC RBC Hgb Hct MCV MCH MCHC RDW Plt Count Neut % (Auto) Lymph % (Auto) Todd % (Auto) Eos % (Auto) Baso % (Auto) Neut # (Auto) Lymph # (Auto) Todd # (Auto) Eos # (Auto) Baso # (Auto) PT INR APTT D-Dimer VBG pH 7.31 L VBG pCO2 32.1 L VBG pO2 44 VBG HCO3 16 L VBG Total CO2 17 L VBG O2 Saturation 76 H VBG Base Excess -10.0 L Sodium Potassium Chloride Carbon Dioxide BUN Creatinine Estimated GFR BUN/Creatinine Ratio Glucose Lactate 9.5 H* Calcium Magnesium Total Bilirubin AST ALT Alkaline Phosphatase Total Creatine Kinase CK-MB (CK-2) CK-MB (CK-2) Rel Index Troponin I NT-Pro-B Natriuret Pep Total Protein Albumin Globulin Albumin/Globulin Ratio Procalcitonin Chlamy pneumoniae PCR Not detected Adenovirus (PCR) Not detected B.parapertussis DNA PCR Not detected Coronavirus OC43 (PCR) Not detected Coronavirus HKU1 (PCR) Not detected Coronavirus 229E (PCR) Not detected SARS-CoV-2 (PCR) Not detected Coronavirus NL63 (PCR) Not detected Human Metapneumovir PCR Not detected Influenza Type A (PCR) Not detected Influenza Type B (PCR) Not detected M. pneumoniae (PCR) Not detected Parainfluenza 1 (PCR) Not detected Parainfluenza 2 (PCR) Not detected Parainfluenza 3 (PCR) Not detected Parainfluenza 4 (PCR) Not detected RSV (PCR) Not detected Entero/Rhino (PCR) Detected H Assessment & Plan Assessment & Plan narrative: Daisy Morrow is a 55-year-old female with a past medical history of severe persistent asthma, type 2 diabetes on insulin pump therapy, hypoaldosteronism, gout, and hypertension who presented with worsening shortness of breath admitted under observation for further management of her asthma exacerbation. 1. Severe persistent asthma with acute exacerbation, present on admission - patient received mg 2g, continuous albuterol 20 mg for 3+ hours in the ER, with mild improvement in symptoms but still with increased work of breathing. - recheck Mg level - elevated lactate likely in the setting of continuous albuterol, will continue to monitor. start IV fluids. Received 2L in ER. - continue prednisone 60 mg daily, received 60 mg today + methylprednisolone 125 mg in the ER. - continue home fluticasone/salmeterol, duonebs Q4h, will switch to levalbuterol given tachycardia as needed. Continue home montelukast. - check EKG which was ordered. - likely worsened due to recent COVID 19 vaccination and concomittant rhino/enterovirus infection. 2. Viral syndrome secondary to rhino/entero virus - continue supportive care with above therapies, tylenol for fever, mucolytic for chest congestion, and nasal decongestant if she has runny nose. 3. Elevated lactic acid, present on admission. - LA of 11.9, likely secondary to continuous albuterol. Will continue to follow per protocol, given 2L NS in the ER, will continue overnight at 100 cc per hour. 3. Hypoaldosteronism, chronic - continue home aldactone 4. Type 2 diabetes, with hyperglycemia likely due to steroid therapy, on insulin pump therapy -patient can continue her home insulin pump with continuous glucose monitor 5. Hypertension - continue home lasix and losartan 6. History of gout - can continue home febuxostat if patient provides, non-formulary medication. Code: Full as discussed with the patient Dispo: Admitted under observation status. COVID-19 COVID-19 status: Negative
[2020-12-12] MEDS: SODIUM CHLORIDE 0.9% 1,000 ML 100 ML IV (18:06)
[2020-12-12 19:26] LABS: Reflexed Lactate in 2 Hours Y
[2020-12-12] MEDS: ALBUTEROL/IPRATROPIUM 3 ML AMPUL INH ×2 (19:41→22:00)
[2020-12-12 20:02] LABS: Blood Urea Nitrogen 16 mg/dL (7-17); Calcium 9.1 mg/dL (8.4-10.2); Carbon Dioxide 15 mmol/L (22-32); Chloride 105 mmol/L (98-107); Estimated Glomerular Filt Rate 57.1 mL/min (>60); Glucose 294 mg/dL (70-100); HEMOLYSIS < 15 (0-50); Potassium 3.6 mmol/L (3.4-5.1); Sodium 138 mmol/L (137-145)
[2020-12-12 20:03] LABS: Magnesium 2.1 mg/dL (1.6-2.3)
[2020-12-12 20:05] LABS: Lactate 2HR (Lactic Acid Rflx) 10.5 mmol/L (0.7-2.1)
[2020-12-12] MEDS: FUROSEMIDE 40 MG TABLET PO (21:51)
[2020-12-12] MEDS: SPIRONOLACTONE 25 MG TABLET 100 MG PO (21:51)
[2020-12-12] MEDS: PANTOPRAZOLE 20 MG TABLET PO (21:51)
[2020-12-12] MEDS: MONTELUKAST 10 MG TABLET PO (21:52)
[2020-12-12] MEDS: DULOXETINE 30 MG CAPSULE 60 MG PO (21:52)
[2020-12-13 00:43] VITALS: BP 123/69; PULSE 109; RESP 22; TEMP 36.1; O2SAT 98
[2020-12-13] MEDS: SODIUM CHLORIDE 0.9% 1,000 ML 100 ML IV (00:52)
--- NOTE | 2020-12-13 02:46 | PC.NURSE ---
0200 Pt has diabetic insulin pump operating with continuous glucose monitoring. Patient's pump reads blood sugar of 213, but our glucose monitor states 153. There are no orders for insulin as the patient is pump-controlled. Denies s/sx of hyper/hypoglycemia. Will continue to monitor.
[2020-12-13 05:18] VITALS: BP 112/70; PULSE 101; RESP 20; TEMP 36.2; O2SAT 96
[2020-12-13 06:03] VITALS: PULSE 91; RESP 18; O2SAT 98
[2020-12-13] MEDS: ALBUTEROL/IPRATROPIUM 3 ML AMPUL INH ×2 (06:03→09:20)
[2020-12-13 06:06] LABS: Add Manual Diff / Slide Review NO; Basophils Absolute Auto 0 /uL (0-100); Basophils Percent Auto 0.2 % (0-2); Eosinophils Absolute Auto 0 /uL (0-450); Hematocrit 37.8 % (36-46); Hemoglobin 12.1 g/dL (12.0-16.0); Lymphocytes Absolute Auto 1500 /uL (1100-4500); Lymphocytes Percent Auto 9.7 % (25-40); Mean Corpuscular Hemoglobin 27.4 PG (26-34); Mean Corpuscular Volume 85.4 fL (80-100); Monocytes Absolute Auto 1100 /uL (0-900); Monocytes Percent Auto 6.9 % (3-14); Neutrophils Absolute Auto 12700 /uL (1500-7000); Neutrophils Percent Auto 83.2 % (50-75); Platelet Count 336 X10^3/uL (150-400); Red Blood Cell Count 4.43 X10^6/uL (4.0-5.2); Red Cell Distribution Width 14.3 % (11.6-14.8); White Blood Cell Count 15.3 X10^3/uL (4.5-11.0)
[2020-12-13 06:08] LABS: BUN Creatinine Ratio 16.8 (6-22); Blood Urea Nitrogen 16 mg/dL (7-17); Calcium 9.4 mg/dL (8.4-10.2); Carbon Dioxide 25 mmol/L (22-32); Chloride 109 mmol/L (98-107); Estimated Glomerular Filt Rate > 60.0 mL/min (>60); Glucose 112 mg/dL (70-100); HEMOLYSIS < 15 (0-50); Magnesium 2.1 mg/dL (1.6-2.3); Potassium 3.4 mmol/L (3.4-5.1); Sodium 140 mmol/L (137-145)
[2020-12-13 06:45] LABS: TSH w/ Reflex to FT4 0.25 uIU/mL (0.47-4.68)
[2020-12-13 07:11] LABS: Free T4, Direct Thyroxine 0.72 ng/dL (0.78-2.19)
[2020-12-13 07:58] LABS: Lactate (Lactic Acid) 1.4 mmol/L (0.7-2.1)
[2020-12-13 08:00] VITALS: BP 127/77; PULSE 94; RESP 18; TEMP 36.3; O2SAT 98
--- NOTE | 2020-12-13 09:16 | CM.IDA ---
Initial DCP Assessment Note Patient is a 55 yo female, resident of [place] (address [place] [address] Patient presents w/SOB, asthma exacerbation in the setting of common cold PCP: Tania Grewal Payer: out of State [employer] Reviewed chart, met w/patient this morning to introduce role. Patient is sitting up in bed, in good spirits this morning, feeling a lot better, breathing better. Patient explains that she has lived w/severe asthma since childhood, h/o chronic steroid use, diabetes and other chronic conditions, currently stable.. however has remained active, indp. and manages her chronic conditions the best she is able. 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 Plan: DC home w/family when medically cleared, close outpatient f/u [facility] Discharge Planning/Care Management CM Discharge Assessment Start: 12/13/20 09:13 Freq: Status: Active Protocol: Document 12/13/20 09:15 [facility] (Rec: 12/13/20 09:16 [facility] [id number]) Discharge Planning Assessment Assigned 3D Artist KRISTEL Wu DPOA/Assigned Designee Name Arnulfo Morrow, spouse Contact Information [phone], Advance Directives? No History Provided By Patient Prior Living Arrangements House Household Members spouse Type of transporation used prior to Drives own vehicle admit Independent with ADL's Yes Is patient alert and oriented? Yes Barriers to Discharge No Discharge Plan Home Transportation Arrangement Family Referrals Initiated None needed
[2020-12-13] MEDS: FLUTICASONE/SALMETEROL 250/50 60 PUFF DISKUS INH (09:20)
[2020-12-13 09:21] VITALS: PULSE 101; RESP 14; O2SAT 98
[2020-12-13] MEDS: ENOXAPARIN 40 MG/0.4 ML SYRINGE SUBCUT (09:59)
[2020-12-13 10:00] VITALS: O2SAT 98
[2020-12-13] MEDS: predniSONE 20 MG TABLET 60 MG PO (10:00)
--- NOTE | 2020-12-13 10:24 | P.DS_ITS ---
History of Present Illness History of Present Illness Date Patient Seen: 12/13/20 Time Patient Seen: 10:15 Chief complaint: asthma, cant breath Narrative: Daisy Morrow is a 55-year-old female with a past medical history of severe persistent asthma, type 2 diabetes on insulin pump therapy, hypoaldosteronism, gout, and hypertension who presented with worsening shortness of breath. Patient states that she has been suffering with an asthma exacerbation since around November 25. She has had 3 steroid tapers over that period of time, most recently starting 2 days ago. 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 This initially help with her symptoms but she received the 2nd COVID-19 shot on Wednesday, and after that she has had worsening shortness of breath which was severe enough that she sought care in the emergency room today. She denies any fevers or chills, she does complain of an increased cough but without sputum production. She has not had any chest pain or palpitations, denies any nausea or vomiting, and has had no abdominal pain. In the emergency room she was tachycardic and tachypneic as high as the mid 30s. She was saturating well on room air but appeared in respiratory distress. She was started on continuous nebulizers and was given some magnesium with some improvement in her symptoms, but she remained still short of breath with increased work of breathing. EKG is pending. CXR was unremarkable. Laboratory evaluation revealed a mild leukocytosis at 13.3, but otherwise unremarkable CBC. Chemistries revealed a glucose of 255, lactate in the ER has been up trending since her continuous albuterol up to 11.9. Troponin was negative. Procalcitonin is negative. Respiratory PCR was positive for entero/rhinovirus. Patient was admitted under observation for further management of her asthma exacerbation. Discharge Providers Provider Date of admission: 12/12/20 17:44 Discharge Date: 12/13/20 Primary care physician: Tania Grewal PA-C Consults: 12/12/20 13:14 Consult to Respiratory Therapy Evaluate & Treat Comment: Physician Instructions: Evaluate and treat Discharge provider: Lobo Marin DO Summary Hospital Course Discharge Diagnosis: 1. Severe persistent asthma with acute exacerbation, present on admission 2. Viral syndrome secondary to rhino/entero virus 3. Elevated lactic acid, present on admission, resolved 3. Hypoaldosteronism, chronic 4. Type 2 diabetes, with hyperglycemia likely due to steroid therapy, on insulin pump therapy, chronic 5. Hypertension, chronic 6. History of gout Hospital Course: Daisy Morrow is a 55-year-old female with a past medical history of severe persistent asthma, type 2 diabetes on insulin pump therapy, hypoaldosteronism, gout, and hypertension who presented with worsening shortness of breath admitted under observation for further management of her asthma exacerbation. In the emergency room she received continuous albuterol nebulizer for over 3 hours, magnesium, and steroids with modest improvement in her breathing but she remained tachypneic and uncomfortable appearing. The following morning she was much improved and was breathing more comfortably. Her lactate sayda to 11.9 in the emergency room, likely due to the continuous albuterol, and began to improve and by the following morning was down to normal at 1.4 after she was also given some fluids. Her viral panel came back with rhino/enterovirus but the patient was minimally symptomatic other than her asthma exacerbation. She had also received the 2nd dose of COVID vaccine which may have contributed to her exacerbation. Patient was discharged the day after admission on a 10 day steroid taper. No further medications were recommended to her chronic asthma therapy at this time. 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 Exam Vital Signs (past 8 hours): - 12/13/20 05:18 12/13/20 06:03 12/13/20 08:00 Temperature 97.1 F L 97.4 F L Pulse Rate 101 H 91 H 94 H Respiratory Rate 20 18 18 Blood Pressure 112/70 127/77 Pulse Oximetry 96 98 98 12/13/20 09:21 Temperature Pulse Rate 101 H Respiratory Rate 14 Blood Pressure Pulse Oximetry 98 Oxygen Delivery Method Room Air Oxygen Flow Rate 0 Narrative Exam Narrative: GENERAL APPEARANCE: Well developed, well nourished, female. No acute distress. SKIN: Inspection of the skin reveals no rashes, ulcerations or petechiae. HEENT: Normocephalic atraumatic, extraocular muscles are intact, oropharynx is clear and mucous membranes are dry, neck is supple without adenopathy NECK: Supple and symmetric. There was no thyroid enlargement, and no tenderness, or masses were felt. CHEST: Normal AP diameter and normal contour without any kyphoscoliosis. LUNGS: Auscultation of the lungs revealed minimal scattered expiratory wheezing without rhonchi or rales. CARDIOVASCULAR: There was a regular rate and rhythm without any murmurs, gallops, rubs. Peripheral pulses were 2+ and symmetric. ABDOMEN: Soft and nontender with normal bowel sounds. No ascites was noted. MUSCULOSKELETAL: There was no tenderness or effusions noted. Muscle strength and tone were normal. EXTREMITIES: No cyanosis, clubbing or edema. NEUROLOGIC: Alert and oriented x 3. Normal affect. Strength is +5/5 in the Upper Extremities and Lower Extremities Bilaterally. Objective Labs Result Diagrams: 12/13/20 05:20 12/13/20 05:20 Labs: Laboratory Results - last 24 hr 12/12/20 12/12/20 12/12/20 13:17 13:17 13:17 WBC 13.3 H RBC 4.90 Hgb 13.6 Hct 41.6 MCV 84.8 MCH 27.7 MCHC 32.7 RDW 14.2 Plt Count 345 Neut % (Auto) 91.0 H Lymph % (Auto) 7.5 L Parmer % (Auto) 1.2 L Eos % (Auto) 0.0 L Baso % (Auto) 0.3 Neut # (Auto) 52275 H Lymph # (Auto) 1000 L Parmer # (Auto) 200 Eos # (Auto) 0 Baso # (Auto) 0 PT 11.4 INR 1.0 APTT 33 D-Dimer < 200 VBG pH VBG pCO2 VBG pO2 VBG HCO3 VBG Total CO2 VBG O2 Saturation VBG Base Excess Sodium Potassium Chloride Carbon Dioxide BUN Creatinine Estimated GFR BUN/Creatinine Ratio Glucose Lactate Calcium Magnesium 1.9 Total Bilirubin AST ALT Alkaline Phosphatase Total Creatine Kinase 110 CK-MB (CK-2) 1.43 CK-MB (CK-2) Rel Index 1.3 L Troponin I < 0.012 NT-Pro-B Natriuret Pep 146 H Total Protein Albumin Globulin Albumin/Globulin Ratio Procalcitonin TSH Free T4 Chlamy pneumoniae PCR Adenovirus (PCR) B.parapertussis DNA PCR Coronavirus OC43 (PCR) Coronavirus HKU1 (PCR) Coronavirus 229E (PCR) SARS-CoV-2 (PCR) Coronavirus NL63 (PCR) Human Metapneumovir PCR Influenza Type A (PCR) Influenza Type B (PCR) M. pneumoniae (PCR) Parainfluenza 1 (PCR) Parainfluenza 2 (PCR) Parainfluenza 3 (PCR) Parainfluenza 4 (PCR) RSV (PCR) Entero/Rhino (PCR) 12/12/20 12/12/20 12/12/20 13:17 13:17 13:17 WBC RBC Hgb Hct MCV MCH MCHC RDW Plt Count Neut % (Auto) Lymph % (Auto) Parmer % (Auto) Eos % (Auto) Baso % (Auto) Neut # (Auto) Lymph # (Auto) Parmer # (Auto) Eos # (Auto) Baso # (Auto) PT INR APTT D-Dimer VBG pH VBG pCO2 VBG pO2 VBG HCO3 VBG Total CO2 VBG O2 Saturation VBG Base Excess Sodium 137 Potassium 4.3 Chloride 103 Carbon Dioxide 20 L BUN 20 H Creatinine 1.02 Estimated GFR 55.9 L BUN/Creatinine Ratio 19.6 Glucose 255 H Lactate 6.0 H* Calcium 10.5 H Magnesium Total Bilirubin 0.2 AST 31 ALT 32 Alkaline Phosphatase 98 Total Creatine Kinase CK-MB (CK-2) CK-MB (CK-2) Rel Index Troponin I NT-Pro-B Natriuret Pep Total Protein 7.1 Albumin 4.5 Globulin 2.6 Albumin/Globulin Ratio 1.7 Procalcitonin < 0.05 TSH Free T4 Chlamy pneumoniae PCR Adenovirus (PCR) B.parapertussis DNA PCR Coronavirus OC43 (PCR) Coronavirus HKU1 (PCR) Coronavirus 229E (PCR) SARS-CoV-2 (PCR) Coronavirus NL63 (PCR) Human Metapneumovir PCR Influenza Type A (PCR) Influenza Type B (PCR) M. pneumoniae (PCR) Parainfluenza 1 (PCR) Parainfluenza 2 (PCR) Parainfluenza 3 (PCR) Parainfluenza 4 (PCR) RSV (PCR) Entero/Rhino (PCR) 12/12/20 12/12/20 12/12/20 13:57 15:23 15:23 WBC RBC Hgb Hct MCV MCH MCHC RDW Plt Count Neut % (Auto) Lymph % (Auto) Parmer % (Auto) Eos % (Auto) Baso % (Auto) Neut # (Auto) Lymph # (Auto) Parmer # (Auto) Eos # (Auto) Baso # (Auto) PT INR APTT D-Dimer VBG pH 7.31 L VBG pCO2 32.1 L VBG pO2 44 VBG HCO3 16 L VBG Total CO2 17 L VBG O2 Saturation 76 H VBG Base Excess -10.0 L Sodium Potassium Chloride Carbon Dioxide BUN Creatinine Estimated GFR BUN/Creatinine Ratio Glucose Lactate 9.5 H* Calcium Magnesium Total Bilirubin AST ALT Alkaline Phosphatase Total Creatine Kinase CK-MB (CK-2) CK-MB (CK-2) Rel Index Troponin I NT-Pro-B Natriuret Pep Total Protein Albumin Globulin Albumin/Globulin Ratio Procalcitonin TSH Free T4 Chlamy pneumoniae PCR Not detected Adenovirus (PCR) Not detected B.parapertussis DNA PCR Not detected Coronavirus OC43 (PCR) Not detected Coronavirus HKU1 (PCR) Not detected Coronavirus 229E (PCR) Not detected SARS-CoV-2 (PCR) Not detected Coronavirus NL63 (PCR) Not detected Human Metapneumovir PCR Not detected Influenza Type A (PCR) Not detected Influenza Type B (PCR) Not detected M. pneumoniae (PCR) Not detected Parainfluenza 1 (PCR) Not detected Parainfluenza 2 (PCR) Not detected Parainfluenza 3 (PCR) Not detected Parainfluenza 4 (PCR) Not detected RSV (PCR) Not detected Entero/Rhino (PCR) Detected H 12/12/20 12/12/20 12/12/20 17:23 19:42 19:42 WBC RBC Hgb Hct MCV MCH MCHC RDW Plt Count Neut % (Auto) Lymph % (Auto) Parmer % (Auto) Eos % (Auto) Baso % (Auto) Neut # (Auto) Lymph # (Auto) Parmer # (Auto) Eos # (Auto) Baso # (Auto) PT INR APTT D-Dimer VBG pH VBG pCO2 VBG pO2 VBG HCO3 VBG Total CO2 VBG O2 Saturation VBG Base Excess Sodium 138 Potassium 3.6 Chloride 105 Carbon Dioxide 15 L BUN 16 Creatinine 1.00 Estimated GFR 57.1 L BUN/Creatinine Ratio 16.0 Glucose 294 H Lactate 11.9 H* Calcium 9.1 Magnesium 2.1 Total Bilirubin AST ALT Alkaline Phosphatase Total Creatine Kinase CK-MB (CK-2) CK-MB (CK-2) Rel Index Troponin I NT-Pro-B Natriuret Pep Total Protein Albumin Globulin Albumin/Globulin Ratio Procalcitonin TSH Free T4 Chlamy pneumoniae PCR Adenovirus (PCR) B.parapertussis DNA PCR Coronavirus OC43 (PCR) Coronavirus HKU1 (PCR) Coronavirus 229E (PCR) SARS-CoV-2 (PCR) Coronavirus NL63 (PCR) Human Metapneumovir PCR Influenza Type A (PCR) Influenza Type B (PCR) M. pneumoniae (PCR) Parainfluenza 1 (PCR) Parainfluenza 2 (PCR) Parainfluenza 3 (PCR) Parainfluenza 4 (PCR) RSV (PCR) Entero/Rhino (PCR) 12/12/20 12/13/20 12/13/20 19:42 05:20 05:20 WBC 15.3 H RBC 4.43 Hgb 12.1 Hct 37.8 MCV 85.4 MCH 27.4 MCHC 32.0 RDW 14.3 Plt Count 336 Neut % (Auto) 83.2 H Lymph % (Auto) 9.7 L Parmer % (Auto) 6.9 Eos % (Auto) 0.0 L Baso % (Auto) 0.2 Neut # (Auto) 54380 H Lymph # (Auto) 1500 Parmer # (Auto) 1100 H Eos # (Auto) 0 Baso # (Auto) 0 PT INR APTT D-Dimer VBG pH VBG pCO2 VBG pO2 VBG HCO3 VBG Total CO2 VBG O2 Saturation VBG Base Excess Sodium 140 Potassium 3.4 Chloride 109 H Carbon Dioxide 25 BUN 16 Creatinine 0.95 Estimated GFR > 60.0 BUN/Creatinine Ratio 16.8 Glucose 112 H D Lactate 10.5 H* Calcium 9.4 Magnesium 2.1 Total Bilirubin AST ALT Alkaline Phosphatase Total Creatine Kinase CK-MB (CK-2) CK-MB (CK-2) Rel Index Troponin I NT-Pro-B Natriuret Pep Total Protein Albumin Globulin Albumin/Globulin Ratio Procalcitonin TSH Free T4 Chlamy pneumoniae PCR Adenovirus (PCR) B.parapertussis DNA PCR Coronavirus OC43 (PCR) Coronavirus HKU1 (PCR) Coronavirus 229E (PCR) SARS-CoV-2 (PCR) Coronavirus NL63 (PCR) Human Metapneumovir PCR Influenza Type A (PCR) Influenza Type B (PCR) M. pneumoniae (PCR) Parainfluenza 1 (PCR) Parainfluenza 2 (PCR) Parainfluenza 3 (PCR) Parainfluenza 4 (PCR) RSV (PCR) Entero/Rhino (PCR) 12/13/20 12/13/20 05:20 07:30 WBC RBC Hgb Hct MCV MCH MCHC RDW Plt Count Neut % (Auto) Lymph % (Auto) Parmer % (Auto) Eos % (Auto) Baso % (Auto) Neut # (Auto) Lymph # (Auto) Parmer # (Auto) Eos # (Auto) Baso # (Auto) PT INR APTT D-Dimer VBG pH VBG pCO2 VBG pO2 VBG HCO3 VBG Total CO2 VBG O2 Saturation VBG Base Excess Sodium Potassium Chloride Carbon Dioxide BUN Creatinine Estimated GFR BUN/Creatinine Ratio Glucose Lactate 1.4 Calcium Magnesium Total Bilirubin AST ALT Alkaline Phosphatase Total Creatine Kinase CK-MB (CK-2) CK-MB (CK-2) Rel Index Troponin I NT-Pro-B Natriuret Pep Total Protein Albumin Globulin Albumin/Globulin Ratio Procalcitonin TSH 0.25 L Free T4 0.72 L Chlamy pneumoniae PCR Adenovirus (PCR) B.parapertussis DNA PCR Coronavirus OC43 (PCR) Coronavirus HKU1 (PCR) Coronavirus 229E (PCR) SARS-CoV-2 (PCR) Coronavirus NL63 (PCR) Human Metapneumovir PCR Influenza Type A (PCR) Influenza Type B (PCR) M. pneumoniae (PCR) Parainfluenza 1 (PCR) Parainfluenza 2 (PCR) Parainfluenza 3 (PCR) Parainfluenza 4 (PCR) RSV (PCR) Entero/Rhino (PCR) PFSH Medical History Asthma Gout HTN (hypertension) Hypoaldosteronism Type 2 diabetes mellitus Surgical History H/O: hysterectomy History of cholecystectomy Previous section Social History household members: spouse Smoking Status: Never smoker alcohol intake: current Discharge Plan Discharge Plan Patient Disposition: Home Provider Discharge Comment: You were admitted to the hospital with an asthma exacerbation and elevated lactate. Both improved the following day. Please finish prescribed steroid taper and do not hesitate to return if you worsen for further evaluation. Discharge orders & Medications Prescriptions: New prednisone 10 mg tablet See Rx Instructions .ROUTE .COMPLEX Qty: 32 RF: 0 Continued montelukast 10 MG tablet 10 mg PO DAILY Qty: 0 RF: 0 febuxostat [Uloric] 40 MG tablet 40 mg PO BEDTIME Qty: 0 RF: 0 furosemide 40 MG tablet 40 mg PO BEDTIME Qty: 0 RF: 0 lansoprazole 15 MG capsule,delayed release(DR/EC) 15 mg PO BEDTIME Qty: 0 RF: 0 spironolactone [Aldactone] 100 MG tablet 100 mg PO DAILY Qty: 0 RF: 0 duloxetine [Cymbalta] 30 MG capsule,delayed release(DR/EC) 60 mg PO BEDTIME Qty: 0 RF: 0 prednisone 20 MG tablet 40 mg PO Q DAY Qty: 8 RF: 0 albuterol sulfate 90 mcg/actuation HFA aerosol inhaler 2 puff Inhalation Q3H PRN (Reason: Wheezing) RF: 0 ipratropium-albuterol 0.5 mg-3 mg(2.5 mg base)/3 mL solution for nebulization 3 ml INHALATION QID PRN (Reason: asthma exac) Qty: 180 RF: 0 albuterol sulfate 1.25 mg/3 mL solution for nebulization 1.25 mg INHALATION Q4H PRN (Reason: asthma exac) Qty: 90 RF: 0 dexamethasone [Decadron] 4 mg tablet 4 mg PO DAILY Qty: 1 RF: 0 fluticasone propion-salmeterol [Advair Diskus] 250-50 mcg/dose Blister With Device 1 inh INHALATION BID RF: 0 fluticasone propionate 220 mcg/actuation Hfa Aerosol Inhaler 1 puff INHALATION BID RF: 0 Humalog U-100 Insulin 100 unit/mL Cartridge 200 unit continuous IV infusion DIRECTED PRN (Reason: Hyperglycemia) RF: 0 Mucinex Nightshift Cold-Flu 2.5-20-650 mg/20 mL Liquid 20 ml PO DIRECTED PRN (Reason: Cold Symptoms) RF: 0 Follow up/Referrals: Tania Grewal PA-C [Primary Care Provider] - Diet/Activity/Treatments Diet: Diet as Tolerated and Carb-consistent/Diabetic Activity: As tolerated Visit Report/Discharge Packet Instructions: DI for Asthma -- Adult, Prednisone Discharge Data Primary Care Provider: Tania Grewal Attending Provider: Lobo Marin VTE Deep Vein Thrombosis/Pulmonary Embolism Present on Admission: No
--- NOTE | 2020-12-13 11:33 | PC.NURSE ---
Patient A/O x4, denies SOB or increased WOB with activity. IV removed. Discharge instruction given to patient, bedside. Patient verbalized understanding regarding Prednisone taper. Patient discharged via wheelchair with aide assist.
== END 2020-12-13 10:45 | disposition home or self-care (01) ==
LOC: ED 13:08 → AC 17:45
PROVIDERS: Nurse Practitioner Family; Admitting Provider Internal Medicine; Emergency Provider Emergency Medicine; PCP Physician Assistant Medical; Referring Provider Emergency Medicine; Visit Provider Internal Medicine
DX: J45.901 Unspecified asthma with (acute) exacerbation (principal); R50.9 Fever, unspecified; R09.81 Nasal congestion; R74.02 Elevation of levels of lactic acid dehydrogenase [LDH]; B97.89 Other viral agents as the cause of diseases classified elsewhere; I10 Essential (primary) hypertension; E27.40 Unspecified adrenocortical insufficiency; M10.9 Gout, unspecified; E11.9 Type 2 diabetes mellitus without complications; Z79.4 Long term (current) use of insulin
CPT/HCPCS: 36415; 71045; 80048; 80053; 82550; 82553; 82805; 82962; 83605; 83735; 83880; 84145; 84439; 84443; 84484; 85025; 85379; 85610; 85730; 87633; 93005; 94150; 94640; 94760; 94762; 96361; 96372; 96374; 99282; 99284; G0378; J1650; J2930; J3475; J7611

== ENCOUNTER → 2021-09-09 16:22 | Outpatient (CLI) | payer OTHER, SELFPAY ==
[2020-12-12 18:38] VITALS: BMI 35.4
== END ==
PROVIDERS: Referring Provider Internal Medicine; Visit Provider Internal Medicine
DX: Z23 Encounter for immunization (principal)
CPT/HCPCS: 90471; 90686

== ENCOUNTER → 2021-10-01 10:54 | Outpatient (CLI) | payer OTHER, SELFPAY ==
[2020-12-12 18:38] VITALS: BMI 35.4
[2021-10-01 11:45] LABS: Add Manual Diff / Slide Review NO; Basophils Absolute Auto 100 /uL (0-100); Basophils Percent Auto 0.8 % (0-2); Eosinophils Absolute Auto 200 /uL (0-450); Eosinophils Percent Auto 2.2 % (2-4); Hematocrit 39.1 % (36-46); Hemoglobin 12.9 g/dL (12.0-16.0); Lymphocytes Absolute Auto 4000 /uL (1100-4500); Lymphocytes Percent Auto 45.3 % (25-40); Mean Corpuscular HGB Conc 32.9 % (30-36); Mean Corpuscular Hemoglobin 27.3 PG (26-34); Mean Corpuscular Volume 82.9 fL (80-100); Monocytes Absolute Auto 500 /uL (0-900); Neutrophils Absolute Auto 4000 /uL (1500-7000); Neutrophils Percent Auto 45.7 % (50-75); Platelet Count 311 X10^3/uL (150-400); Red Blood Cell Count 4.72 X10^6/uL (4.0-5.2); Red Cell Distribution Width 13.6 % (11.6-14.8); White Blood Cell Count 8.7 X10^3/uL (4.5-11.0)
[2021-10-01 11:58] LABS: Hemoglobin A1C% w Est Avg Glu 6.2 % (4.0-6.0)
[2021-10-01 12:17] LABS: Alanine Aminotransferase 26 IU/L (<35); Albumin 4.4 g/dL (3.5-5.0); Albumin Globulin Ratio 1.9 (1.0-2.8); Alkaline Phosphatase 101 U/L (38-126); Aspartate Aminotransferase 25 IU/L (14-36); BUN Creatinine Ratio 18.6 (6-22); Bilirubin Total 0.3 mg/dL (0.2-1.3); Blood Urea Nitrogen 19 mg/dL (7-17); Calcium 10.2 mg/dL (8.4-10.2); Carbon Dioxide 31 mmol/L (22-32); Chloride 99 mmol/L (98-107); Estimated Glomerular Filt Rate 55.7 mL/min (>60); Globulin 2.3 g/dL (1.7-4.1); Glucose 115 mg/dL (70-100); HEMOLYSIS < 15 (0-50); Potassium 3.8 mmol/L (3.4-5.1); Sodium 139 mmol/L (137-145); Total Protein 6.7 g/dL (6.3-8.2)
[2021-10-01 12:30] LABS: Vitamin D 25 Hydroxy (D3) 33.9 ng/mL (30.0-100.0)
[2021-10-01 17:06] LABS: Creatinine Urine Random 145.4 mg/dL
[2021-10-01 17:27] LABS: Microalbumi Creatinin Ratio Ur 4.8 ug/mg CR (<30); Microalbumin Urine Random 0.7 mg/dL (0-1.6)
[2021-10-02 08:30] LABS: Parathyroid Hormone Int 43 pg/mL (15-65)
== END ==
PROVIDERS: PCP Student in an Organized Health Care Education/Training Program; Referring Provider Student in an Organized Health Care Education/Training Program; Visit Provider Student in an Organized Health Care Education/Training Program
DX: N18.9 Chronic kidney disease, unspecified (principal); E11.9 Type 2 diabetes mellitus without complications; M10.9 Gout, unspecified
CPT/HCPCS: 36415; 80053; 82043; 82306; 82570; 83036; 83970; 84550; 85025

== ENCOUNTER → 2021-11-13 15:07 | Outpatient (CLI) | payer OTHER, SELFPAY ==
[2020-12-12 18:38] VITALS: BMI 35.4
== END ==
PROVIDERS: PCP Student in an Organized Health Care Education/Training Program; Referring Provider Student in an Organized Health Care Education/Training Program; Visit Provider Student in an Organized Health Care Education/Training Program
DX: Z78.0 Asymptomatic menopausal state (principal); E11.22 Type 2 diabetes mellitus with diabetic chronic kidney disease; N18.9 Chronic kidney disease, unspecified
CPT/HCPCS: 77080

== ENCOUNTER → 2021-12-11 15:43 | Outpatient (CLI) | payer OTHER, SELFPAY ==
[2020-12-12 18:38] VITALS: BMI 35.4
--- NOTE | 2021-12-11 15:44 | DI.MG.S_ITS ---
BILATERAL DIGITAL SCREENING MAMMOGRAM 3D/2D WITH CAD: 12/11/2021 CLINICAL: Routine screening. Family history of breast cancer. Comparison is made to exams dated: 02/24/2017 mammogram, 02/24/2014 mammogram, 12/27/2011 mammogram, 01/24/2010 mammogram, and 04/26/2007 mammogram - outside. There are scattered fibroglandular elements in both breasts. Current study was also evaluated with a Computer Aided Detection (CAD) system. No significant masses, calcifications, or other findings are seen in either breast. There has been no significant interval change. IMPRESSION: NEGATIVE There is no mammographic evidence of malignancy. A 1 year screening mammogram is recommended. This exam was interpreted at Station ID: [id number]. NOTE: For mammograms, a report in lay terms will be sent to the patient. Approximately 15% of breast malignancies will not be visualized mammographically. In the management of a palpable breast mass, a negative mammogram must not discourage biopsy of a clinically suspicious lesion. Electronically Signed By: Francisco Salguero acr/penrad:12/12/2021 08:35:47 letter sent: Normal Exam ACR BI-RADS Category 1: Negative [id number]
== END ==
PROVIDERS: PCP Student in an Organized Health Care Education/Training Program; Referring Provider Student in an Organized Health Care Education/Training Program; Visit Provider Student in an Organized Health Care Education/Training Program
DX: Z12.31 Encounter for screening mammogram for malignant neoplasm of breast (principal); Z80.3 Family history of malignant neoplasm of breast
CPT/HCPCS: 77063; 77067

== ENCOUNTER → 2022-04-06 07:22 | Outpatient (CLI) | payer OTHER, SELFPAY ==
[2020-12-12 18:38] VITALS: BMI 35.4
[2022-04-06 08:29] LABS: Creatinine Urine Random 83.2 mg/dL
[2022-04-06 08:32] LABS: BUN Creatinine Ratio 15.7 (6-22); Blood Urea Nitrogen 17 mg/dL (7-17); Calcium 9.9 mg/dL (8.4-10.2); Carbon Dioxide 28 mmol/L (22-32); Chloride 100 mmol/L (98-107); Cholesterol 245 mg/dL (140-199); Estimated Glomerular Filt Rate 60 mL/min (>60); Glucose 154 mg/dL (70-100); HDL Cholesterol 39 mg/dL (40-60); HEMOLYSIS < 15 (0-50); LDL Cholesterol Calculated 162 mg/dL (<100); Potassium 4.5 mmol/L (3.4-5.1); Sodium 140 mmol/L (137-145); Triglycerides 222 mg/dL (35-150)
[2022-04-06 08:36] LABS: Microalbumi Creatinin Ratio Ur 9.6 ug/mg CR (<30); Microalbumin Urine Random 0.8 mg/dL (0-1.6)
== END ==
PROVIDERS: PCP Student in an Organized Health Care Education/Training Program; Referring Provider Nurse Practitioner; Visit Provider Nurse Practitioner
DX: E11.65 Type 2 diabetes mellitus with hyperglycemia (principal)
CPT/HCPCS: 36415; 80048; 80061; 82043; 82570; 83036

== ENCOUNTER 2022-04-22 07:30 | Emergency (ER) | payer OTHER, SELFPAY ==
[2020-12-12 18:38] VITALS: BMI 35.4
[2022-04-22 07:49] VITALS: BP 177/87; PULSE 87; RESP 18; TEMP 36.1; O2SAT 100
--- NOTE | 2022-04-22 08:09 | ED.EXTPRO ---
HPI - Extremity Problem General Chief complaint: Extremity Problem,Nontraumatic Stated complaint: Thinks herniated disc in neck- numb lt arm Time Seen by Provider: 04/22/22 08:01 Source: patient Mode of arrival: Family Vehicle History of Present Illness HPI Narrative: This is a 56-year-old female who comes with complaint of left arm numbness and pain that started the past 2 weeks. She has prior cervical microdiskectomy and secondary cervical surgery 10-20 years ago. Patient states she cracked her neck about 2 weeks ago heard a loud pop and had a slowly increasing pain that was minimal at 1st has become increasingly painful with numbness and tingling radiating down her arm on the underside and to her 3rd 4th and fingers. She states her labview programmer is been intact, her muscle strength is been intact. Movement of her neck does not seem to significantly worsen any neck but does worsen her arm pain. If she lays on her left arm with it extended sometimes helpful. She was given prednisone 40 mg x 4 days about 4 days ago which was helpful. She has had Medrol Dosepak in the past which he also found helpful. She wishes to avoid narcotics for pain management. She has been taking tablet of Toradol once daily and had 1 last night. She has had that for 4 days but not any more regularly. She does have a history of asthma, insulin-dependent diabetes. Her prior surgeons have since retired she had her surgery at [facility]. Related Data Home Medications Medication Instructions Recorded Confirmed febuxostat 40 mg tablet (Uloric) 40 mg PO BEDTIME ##0 11/21/16 01/13/22 lansoprazole 15 mg capsule,delayed 15 mg PO BEDTIME ##0 11/21/16 01/13/22 release insulin lispro 100 unit/mL 200 unit continuous IV infusion 12/12/20 01/13/22 subcutaneous cartridge (Humalog DIRECTED PRN Hyperglycemia U-100 Insulin) Previous Rx's Medication Instructions Recorded albuterol sulfate 1.25 mg/3 mL 1.25 mg (3 mL) inhalation Q4H PRN 12/01/18 solution for nebulization asthma exac #90 mL evolocumab 140 mg/mL subcutaneous 140 mg SUBCUT Q2W #2 mL 10/15/21 syringe prednisone 20 mg tablet See Rx Instructions PO DAILY 7 12/24/21 days #10 tabs alprazolam 1 mg tablet 1 mg PO DAILY PRN Procedural 01/14/22 anxiety #1 tab albuterol sulfate 90 mcg/actuation 2 puff inhalation Q3H PRN Wheezing 02/26/22 aerosol inhaler #8.5 grams duloxetine 30 mg capsule,delayed 90 mg PO DAILY #270 caps 02/26/22 release (Cymbalta) fluticasone 250 mcg-salmeterol 50 1 inh inhalation BID #60 ea 02/26/22 mcg/dose blistr powdr for inhalation (Advair Diskus) furosemide 40 mg tablet 40 mg PO DAILY #90 tabs 02/26/22 ipratropium 0.5 mg-albuterol 3 mg 3 ml inhalation QID PRN asthma 02/26/22 (2.5 mg base)/3 mL nebulization exac #180 mL soln montelukast 10 mg tablet 10 mg PO DAILY #90 tabs 02/26/22 spironolactone 50 mg tablet 100 mg PO DAILY #180 tabs 02/26/22 dexamethasone 4 mg tablet See Rx Instructions .Route 04/22/22 .COMPLEX #21 tabs meloxicam 7.5 mg tablet 7.5 mg PO BID #20 tabs 04/22/22 gabapentin 300 mg capsule 300 mg PO BEDTIME #14 caps 04/24/22 hydrocodone 5 mg-acetaminophen 325 1 tab PO Q6H PRN pain #10 tabs 04/24/22 mg tablet Allergies Allergy/AdvReac Type Severity Reaction Status Date / Time levofloxacin [From LEVAQUIN] Allergy Intermediate RASH Verified 04/24/22 07:28 aspirin [ASPIRIN] Allergy Unknown Verified 04/24/22 07:28 azithromycin [AZITHROMYCIN] Allergy Unknown Verified 04/24/22 07:28 diclofenac [DICLOFENAC] Allergy Unknown Verified 04/24/22 07:28 tramadol [TRAMADOL] Allergy Unknown Verified 04/24/22 07:28 [id number] Reductase AdvReac Intermediate muscle pain Verified 04/24/22 07:28 Inhibitor Review of Systems Review of Systems ROS Unobtainable: All systems reviewed & are unremarkable except as noted in HPI and below Patient History Medical History Allergies (~1964) Anxiety and depression (~1984) Asthma (~1962) Asthma Carpal tunnel syndrome (~2014) Chicken pox (~1969) Chronic back pain CKD (chronic kidney disease) (~2017) Cubital tunnel syndrome Cubital tunnel syndrome of both upper extremities Degenerative disc disease, lumbar Eczema (~1962) GERD (gastroesophageal reflux disease) (~1989) Gout Headache (~1974) Hearing loss HTN (hypertension) (~1983) Hyperaldosteronism Irritable bowel syndrome (~1989) Mumps (~1967) NAFLD (nonalcoholic fatty liver disease) Peripheral neuropathy Retinopathy Type 2 diabetes mellitus (~2009) Surgical History Anesthesia H/O: hysterectomy (~2006) History of cholecystectomy (~2013) History of microdiscectomy (~1999) Previous section S/P lumbar laminectomy (~1990) Family History Mother History of heart disease Mental health problem COPD (chronic obstructive pulmonary disease) History of emphysema Sister Breast cancer Social History household members: spouse Smoking Status: Never smoker alcohol intake: current Smoking Status: Never smoker alcohol intake frequency: 0-2 drinks per day Substance Use Type: does not use Exam Narrative Exam Narrative: GENERAL: Alert and oriented x three, female in mild distress HEENT: Head normocephalic, atraumatic, EOMI, pupils reactive, face symmetric, moist mucous membranes, positive Spurling's on the right. NECK: Supple, full range of motion CARDIOVASCULAR: Regular rate and rhythm without murmurs, rubs or gallops. RESPIRATORY: Breath sounds equal bilaterally, no wheezes rales or rhonchi. ABDOMEN: Soft, nontender. Normoactive bowel sounds all 4 quadrants. No guarding or rebound, rigidity, no mass : No CVA tenderness EXTREMITIES: Normal range of motion, no clubbing or edema. Neurovascularly intact. 5/5 muscle strength upper extremities, equal guide cruise. Sensation intact to light touch although slightly decreased on fingers 3 4 and 5 on the left arm. NEUROLOGICAL: Cranial nerves II through XII grossly intact. Moving all extremities SKIN: Warm, dry, no petechiae, no rashes or lesions. Initial Vital Signs Initial Vital Signs: Vital Signs Temperature 97.0 F L 04/22/22 07:49 Pulse Rate 87 04/22/22 07:49 Respiratory Rate 18 04/22/22 07:49 Blood Pressure 177/87 H 04/22/22 07:49 Pulse Oximetry 100 04/22/22 07:49 Oxygen Delivery Method 04/22/22 07:49 Course Orders Ordered: Discontinued Medications Ketorolac Tromethamine (Ketorolac 30 Mg/Ml Vial) 30 mg IM NOW ONE Stop: 04/22/22 08:27 Last Admin: 04/22/22 08:44 Dose: 30 mg Documented By: GIDEON Vital Signs Vital signs: Vital Signs - 8 hr 04/22/22 07:49 Temperature 97.0 F L Pulse Rate 87 Respiratory Rate 18 Blood Pressure 177/87 H Pulse Oximetry 100 MDM - Extremity (Nontraumatic) MDM Narrative Medical decision making narrative: This is a 56-year-old female with prior cervical radiculopathy with surgical repair remotely. Patient has had worsening symptoms over the last 2 weeks she does not have any red flag symptoms necessitating imaging today it has had increasing pain with numbness and tingling but no impingement on labview programmer or muscle strength so far. Patient and I discussed she does not tolerate narcotics well, she has had duloxetine which has been very helpful and that she takes for depression but also for her chronic peripheral neuropathy from diabetes. We discussed Neurontin or gabapentin but she prefers to defer at this time. She has found Medrol Dosepak very helpful. We discussed instead of taking oral Toradol as this can only be taken for short period of time to take meloxicam without other NSAIDs but can take this with Tylenol. Patient is aware of return precautions. Discharge Plan Departure Patient Disposition: Home Clinical Impression: Cervical radiculopathy Activity Restrictions/Additional Instructions: Follow up with your physician or spinal surgeon. Included below is Dr. Goodson in [facility] as an option for follow up. You may take meloxicam 1 tablet every 12 hours. Do not take with other NSAIDs. You can take with Tylenol up to a 1000 mg every 6 hours. You may take dexamethasone prepack as prescribed. Prescription sent to [facility] in [place] Please return for rapidly worsening pain, new weakness, loss of sensation, inability to labview programmer or other new or concerning symptoms. Prescriptions: New meloxicam 7.5 mg tablet 7.5 mg PO BID Qty: 20 0RF dexamethasone 4 mg tablet See Rx Instructions .ROUTE .COMPLEX Qty: 21 0RF Rx Instructions: Take 6 tablets p.o. x1 day, 5 tablets p.o. x1 day, 4 tablets p.o. x1 day, 3 tablets p.o. x1 day, 2 tablets p.o. x1 day, 1 tablet p.o. x1 day No Action febuxostat [Uloric] 40 MG tablet 40 mg PO BEDTIME Qty: 0 lansoprazole 15 MG capsule,delayed release(DR/EC) 15 mg PO BEDTIME Qty: 0 evolocumab 140 mg/mL syringe 140 mg SUBCUT Q2W Qty: 2 2RF prednisone 20 mg tablet See Rx Instructions PO DAILY 7 Days Qty: 10 1RF Rx Instructions: 2 tabs for 3 days, then 1 tab for 4 days alprazolam 1 mg tablet 1 mg PO DAILY PRN (Reason: Procedural anxiety) Qty: 1 1RF albuterol sulfate 90 mcg/actuation HFA aerosol inhaler 2 puff Inhalation Q3H PRN (Reason: Wheezing) Qty: 8.5 11RF ipratropium-albuterol 0.5 mg-3 mg(2.5 mg base)/3 mL solution for nebulization 3 ml INHALATION QID PRN (Reason: asthma exac) Qty: 180 5RF fluticasone propion-salmeterol [Advair Diskus] 250-50 mcg/dose blister with device 1 inh INHALATION BID Qty: 60 5RF spironolactone 50 mg tablet 100 mg PO DAILY Qty: 180 1RF furosemide 40 mg tablet 40 mg PO DAILY Qty: 90 1RF montelukast 10 mg tablet 10 mg PO DAILY Qty: 90 1RF duloxetine [Cymbalta] 30 mg capsule,delayed release(DR/EC) 90 mg PO DAILY Qty: 270 1RF albuterol sulfate 1.25 mg/3 mL solution for nebulization 1.25 mg INHALATION Q4H PRN (Reason: asthma exac) Qty: 90 0RF Humalog U-100 Insulin 100 unit/mL Cartridge 200 unit continuous IV infusion DIRECTED PRN (Reason: Hyperglycemia) Rx Instructions: pt has T-slim pump with humalog insulin. pump dosing adjusted based on CBG and PO intake gabapentin 300 mg capsule 300 mg PO BEDTIME Qty: 14 0RF hydrocodone-acetaminophen 5-325 mg tablet 1 tab PO Q6H PRN (Reason: pain) Qty: 10 0RF Referrals: Tk Pike MD [Primary Care Provider] - John Goodson DO [Non-Staff] - Visit Report Forms: Patient Portal/API
[2022-04-22] MEDS: KETOROLAC 30 MG/ML VIAL IM (08:44)
== END 2022-04-22 08:58 | disposition home or self-care (01) ==
PROVIDERS: Emergency Provider Emergency Medicine; PCP Student in an Organized Health Care Education/Training Program
DX: M54.12 Radiculopathy, cervical region (principal)
CPT/HCPCS: 96372; 99283; J1885

== ENCOUNTER 2022-04-24 07:06 | Emergency (ER) | payer OTHER, SELFPAY ==
[2020-12-12 18:38] VITALS: BMI 35.4
[2022-04-24] VITALS (18 sets, daily range): BP systolic 147–184; BP diastolic 72–97; PULSE 82–89; RESP 11–18; TEMP 36.6; O2SAT 93–97; BMI 36.3
--- NOTE | 2022-04-24 07:25 | DI.RAD.S_ITS ---
PROCEDURE: XR CHEST 1V INDICATIONS: chest pain TECHNIQUE: One view of the chest was acquired. COMPARISON: [facility], CR, XR CHEST 1V, 12/12/2020, 13:31. FINDINGS: Surgical changes and devices: None. Lungs and pleura: Lungs are clear. No pleural effusions or pneumothorax. Mediastinum: Mediastinal contours appear normal. Heart size is normal. Bones and chest wall: No suspicious bony lesions. Overlying soft tissues appear unremarkable. IMPRESSION: No acute cardiopulmonary abnormalities or focal airspace disease. Dictated by: Damien Ramirez M.D. on 04/24/2022 at 8:04 Approved by: Damien Ramirez M.D. on 04/24/2022 at 8:06
--- NOTE | 2022-04-24 07:35 | ED.CHESTPAIN ---
HPI - Chest Pain General Chief Complaint: Chest Pain Stated Complaint: neck pain; problems breathing, asthma Time Seen by Provider: 04/24/22 07:35 Source: patient Mode of arrival: Ambulatory History of Present Illness HPI narrative: Patient is a very nice 56-year-old female history of asthma and chronic neck issues. She had surgery 10-20 years ago. She cracked her neck about 2 weeks ago heard a loud pop and has had increasing pain in her left chest with numbness and tingling down her left arm into her 4th and 5th finger. She was seen and evaluated here in evaluated April 22 for the same. She was given Toradol. She has been on prednisone. She now is on a Medrol dose pack. She says nothing seems to be helping her pain is getting worse. She has no weakness. She has ongoing diabetic neuropathy for which she takes duloxetine for. She says this is not helping. She now states that she feels like she can not take a deep breath. Perhaps her asthma might be getting worse. Although she feels okay now. She has no fever chills or productive cough. She seems to have her asthma pretty well under control except for recently. She is having some mild left-sided chest discomfort which has been ongoing for the last 2 weeks since she heard the pop. She previously did not want any narcotics but pain is not going away she has been taking Mobic ketorolac and steroids. She has not taken any Tylenol. Related Data Home Medications Medication Instructions Recorded Confirmed febuxostat 40 mg tablet (Uloric) 40 mg PO BEDTIME ##0 11/21/16 01/13/22 lansoprazole 15 mg capsule,delayed 15 mg PO BEDTIME ##0 11/21/16 01/13/22 release insulin lispro 100 unit/mL 200 unit continuous IV infusion 12/12/20 01/13/22 subcutaneous cartridge (Humalog DIRECTED PRN Hyperglycemia U-100 Insulin) Previous Rx's Medication Instructions Recorded albuterol sulfate 1.25 mg/3 mL 1.25 mg (3 mL) inhalation Q4H PRN 12/01/18 solution for nebulization asthma exac #90 mL evolocumab 140 mg/mL subcutaneous 140 mg SUBCUT Q2W #2 mL 10/15/21 syringe prednisone 20 mg tablet See Rx Instructions PO DAILY 7 12/24/21 days #10 tabs alprazolam 1 mg tablet 1 mg PO DAILY PRN Procedural 01/14/22 anxiety #1 tab albuterol sulfate 90 mcg/actuation 2 puff inhalation Q3H PRN Wheezing 02/26/22 aerosol inhaler #8.5 grams duloxetine 30 mg capsule,delayed 90 mg PO DAILY #270 caps 02/26/22 release (Cymbalta) fluticasone 250 mcg-salmeterol 50 1 inh inhalation BID #60 ea 02/26/22 mcg/dose blistr powdr for inhalation (Advair Diskus) furosemide 40 mg tablet 40 mg PO DAILY #90 tabs 02/26/22 ipratropium 0.5 mg-albuterol 3 mg 3 ml inhalation QID PRN asthma 02/26/22 (2.5 mg base)/3 mL nebulization exac #180 mL soln montelukast 10 mg tablet 10 mg PO DAILY #90 tabs 02/26/22 spironolactone 50 mg tablet 100 mg PO DAILY #180 tabs 02/26/22 dexamethasone 4 mg tablet See Rx Instructions .Route 04/22/22 .COMPLEX #21 tabs meloxicam 7.5 mg tablet 7.5 mg PO BID #20 tabs 04/22/22 gabapentin 300 mg capsule 300 mg PO BEDTIME #14 caps 04/24/22 hydrocodone 5 mg-acetaminophen 325 1 tab PO Q6H PRN pain #10 tabs 04/24/22 mg tablet Allergies Allergy/AdvReac Type Severity Reaction Status Date / Time levofloxacin [From LEVAQUIN] Allergy Intermediate RASH Verified 04/24/22 07:28 aspirin [ASPIRIN] Allergy Unknown Verified 04/24/22 07:28 azithromycin [AZITHROMYCIN] Allergy Unknown Verified 04/24/22 07:28 diclofenac [DICLOFENAC] Allergy Unknown Verified 04/24/22 07:28 tramadol [TRAMADOL] Allergy Unknown Verified 04/24/22 07:28 [id number] Reductase AdvReac Intermediate muscle pain Verified 04/24/22 07:28 Inhibitor Review of Systems Review of Systems Narrative: GENERAL: Denies chills, fatigue, malaise, fever, sweats, travel HEENT: Denies sinus pain, ear pain, sore throat, difficulty swallowing, neck pain RESPIRATORY: See HPI CARDIOVASCULAR: See HPI GASTROINTESTINAL: Denies nausea, vomiting, abdominal pain, diarrhea, constipation, melena. : Denies dysuria, frequency, incontinence, hematuria, urinary retention, flank pain. MUSCULOSKELETAL: See HPI SKIN: No rash, no erythema, no pruritus NEUROLOGIC: Denies weakness, dizziness, headache, numbness, change in speech, confusion PSYCHIATRIC: No concerning psychosocial issues. 12 point review of systems is negative except for those stated above and HPI Patient History Medical History Allergies (~1965) Anxiety and depression (~1984) Asthma (~1962) Asthma Carpal tunnel syndrome (~2014) Chicken pox (~1969) Chronic back pain CKD (chronic kidney disease) (~2017) Cubital tunnel syndrome Cubital tunnel syndrome of both upper extremities Degenerative disc disease, lumbar Eczema (~1962) GERD (gastroesophageal reflux disease) (~1989) Gout Headache (~1974) Hearing loss HTN (hypertension) (~1983) Hyperaldosteronism Irritable bowel syndrome (~1989) Mumps (~1967) NAFLD (nonalcoholic fatty liver disease) Peripheral neuropathy Retinopathy Type 2 diabetes mellitus (~2009) Surgical History Anesthesia H/O: hysterectomy (~2006) History of cholecystectomy (~2013) History of microdiscectomy (~1999) Previous section S/P lumbar laminectomy (~1990) Family History Mother History of heart disease Mental health problem COPD (chronic obstructive pulmonary disease) History of emphysema Sister Breast cancer Social History household members: spouse Smoking Status: Never smoker alcohol intake: current Smoking Status: Never smoker alcohol intake frequency: 0-2 drinks per day Substance Use Type: does not use Exam Initial Vital Signs Initial Vital Signs: Vital Signs Temperature 97.9 F 04/24/22 07:15 Pulse Rate 89 04/24/22 07:15 Respiratory Rate 18 04/24/22 07:15 Blood Pressure 161/78 H 04/24/22 07:15 Pulse Oximetry 97 04/24/22 07:15 Oxygen Delivery Method 04/24/22 07:15 GENERAL: Alert pleasant 56-year-old and in no acute distress. HEENT: Head atraumatic,EOMI, pupils reactive, face symmetric, moist mucous membranes CARDIOVASCULAR: Regular rate and rhythm without murmurs, rubs or gallops. RESPIRATORY: Breath sounds equal bilaterally, no wheezes rales or rhonchi. ABDOMEN: Soft, nontender. Normoactive bowel sounds all 4 quadrants. No guarding or rebound. EXTREMITIES: Normal range of motion, no clubbing or edema. Neurovascularly intact NEUROLOGICAL: Alert and oriented x4.Normal gait and speech. SKIN: Warm, dry, no laceration, no petechiae, no rashes or lesions. Course Orders Ordered: Discontinued Medications Hydrocodone Bitart/Acetaminophen (Hydrocodone/Acet 5/325 Tablet) 1 tab PO NOW ONE Stop: 04/24/22 08:15 Last Admin: 04/24/22 09:16 Dose: 1 tab Documented By: ANGELIQUE Vital Signs Vital signs: Vital Signs - 8 hr 04/24/22 07:15 04/24/22 07:38 04/24/22 07:40 Temperature 97.9 F Pulse Rate 89 86 86 Respiratory Rate 18 11 L 15 Blood Pressure 161/78 H Pulse Oximetry 97 Oxygen Delivery Method Room Air 04/24/22 07:49 04/24/22 07:49 04/24/22 07:50 Temperature Pulse Rate 84 82 Respiratory Rate 14 13 Blood Pressure 147/72 H Pulse Oximetry 95 95 Oxygen Delivery Method 04/24/22 08:00 04/24/22 08:10 04/24/22 08:24 Temperature Pulse Rate 85 85 88 Respiratory Rate 16 Blood Pressure Pulse Oximetry 95 96 95 Oxygen Delivery Method 04/24/22 08:25 04/24/22 08:25 04/24/22 08:30 Temperature Pulse Rate 85 Respiratory Rate 14 Blood Pressure 184/95 H 162/91 H Pulse Oximetry 95 Oxygen Delivery Method 04/24/22 08:30 04/24/22 08:40 04/24/22 08:40 Temperature Pulse Rate 84 83 Respiratory Rate 14 15 Blood Pressure 170/86 H Pulse Oximetry 95 94 Oxygen Delivery Method 04/24/22 08:50 04/24/22 08:50 04/24/22 09:00 Temperature Pulse Rate 85 Respiratory Rate 15 Blood Pressure 172/91 H 172/85 H Pulse Oximetry 94 Oxygen Delivery Method 04/24/22 09:00 04/24/22 09:10 04/24/22 09:10 Temperature Pulse Rate 83 84 Respiratory Rate 12 13 Blood Pressure 184/91 H Pulse Oximetry 94 93 Oxygen Delivery Method 04/24/22 09:20 04/24/22 09:20 Temperature Pulse Rate 85 Respiratory Rate 13 Blood Pressure 167/91 H Pulse Oximetry 95 Oxygen Delivery Method MDM - Chest Pain Lab Data Result diagrams: 04/24/22 07:35 04/24/22 07:35 Labs: Lab Results 04/24/22 04/24/22 04/24/22 Range/Units 07:35 07:35 07:35 WBC 17.8 H (4.5-11.0) X10^3/uL RBC 4.62 (4.0-5.2) X10^6/uL Hgb 13.0 (12.0-16.0) g/dL Hct 39.0 (36-46) % MCV 84.4 (80-100) fL MCH 28.1 (26-34) PG MCHC 33.3 (30-36) % RDW 14.0 (11.6-14.8) % Plt Count 378 (150-400) X10^3/uL Neut % (Auto) 87.6 H (50-75) % Lymph % (Auto) 8.3 L (25-40) % Crenshaw % (Auto) 3.8 (3-14) % Eos % (Auto) 0.0 L (2-4) % Baso % (Auto) 0.3 (0-2) % Neut # (Auto) 49679 H (6052-7604) /uL Lymph # (Auto) 1500 (2987-1999) /uL Crenshaw # (Auto) 700 (0-900) /uL Eos # (Auto) 0 (0-450) /uL Baso # (Auto) 100 (0-100) /uL D-Dimer < 200 (<230) ng/mL Sodium 136 L (137-145) mmol/L Potassium 4.6 (3.4-5.1) mmol/L Chloride 102 (98-107) mmol/L Carbon Dioxide 25 (22-32) mmol/L BUN 31 H (7-17) mg/dL Creatinine 1.26 H (0.52-1.04) mg/dL Estimated GFR 49 L (>60) mL/min BUN/Creatinine Ratio 24.6 H (6-22) Glucose 188 H (70-100) mg/dL Calcium 9.8 (8.4-10.2) mg/dL Magnesium 2.3 (1.6-2.3) mg/dL Total Bilirubin 0.5 (0.2-1.3) mg/dL AST 24 (14-36) IU/L ALT 26 (<35) IU/L Alkaline Phosphatase 83 (38-126) U/L Total Creatine Kinase 71 (30-135) U/L CK-MB (CK-2) TNP CK-MB (CK-2) Rel Index TNP Troponin I < 0.012 (0.01-0.034) ng/mL NT-Pro-B Natriuret Pep (<125) pg/mL Total Protein 7.5 (6.3-8.2) g/dL Albumin 4.6 (3.5-5.0) g/dL Globulin 2.9 (1.7-4.1) g/dL Albumin/Globulin Ratio 1.6 (1.0-2.8) Lipase 51 (23-300) U/L 04/24/22 Range/Units 07:35 WBC (4.5-11.0) X10^3/uL RBC (4.0-5.2) X10^6/uL Hgb (12.0-16.0) g/dL Hct (36-46) % MCV (80-100) fL MCH (26-34) PG MCHC (30-36) % RDW (11.6-14.8) % Plt Count (150-400) X10^3/uL Neut % (Auto) (50-75) % Lymph % (Auto) (25-40) % Crenshaw % (Auto) (3-14) % Eos % (Auto) (2-4) % Baso % (Auto) (0-2) % Neut # (Auto) (4306-7965) /uL Lymph # (Auto) (2932-4639) /uL Crenshaw # (Auto) (0-900) /uL Eos # (Auto) (0-450) /uL Baso # (Auto) (0-100) /uL D-Dimer (<230) ng/mL Sodium (137-145) mmol/L Potassium (3.4-5.1) mmol/L Chloride (98-107) mmol/L Carbon Dioxide (22-32) mmol/L BUN (7-17) mg/dL Creatinine (0.52-1.04) mg/dL Estimated GFR (>60) mL/min BUN/Creatinine Ratio (6-22) Glucose (70-100) mg/dL Calcium (8.4-10.2) mg/dL Magnesium (1.6-2.3) mg/dL Total Bilirubin (0.2-1.3) mg/dL AST (14-36) IU/L ALT (<35) IU/L Alkaline Phosphatase (38-126) U/L Total Creatine Kinase (30-135) U/L CK-MB (CK-2) CK-MB (CK-2) Rel Index Troponin I (0.01-0.034) ng/mL NT-Pro-B Natriuret Pep 336 H (<125) pg/mL Total Protein (6.3-8.2) g/dL Albumin (3.5-5.0) g/dL Globulin (1.7-4.1) g/dL Albumin/Globulin Ratio (1.0-2.8) Lipase (23-300) U/L Imaging Data Chest x-ray: Radiologist's Impression: XRay Report Signed Patient: Daisy Morrow MR#: [id number] : 1965 Acct:[id number] Age/Sex: 56 / F Date of Service: 04/24/22 Loc: Accession Number: [id number] ?? Procedure: XR chest 1V Ordering Provider: Bing Calero D.O. PROCEDURE:? XR CHEST 1V ? INDICATIONS:? chest pain ? TECHNIQUE:? One view of the chest was acquired.? ? COMPARISON:? [facility], , XR CHEST 1V, 12/12/2020, 13:31. ? FINDINGS:? ? Surgical changes and devices:? None.? ? Lungs and pleura:? Lungs are clear.? No pleural effusions or pneumothorax.? ? Mediastinum:? Mediastinal contours appear normal.? Heart size is normal.? ? Bones and chest wall:? No suspicious bony lesions.? Overlying soft tissues appear unremarkable.? ? IMPRESSION:? No acute cardiopulmonary abnormalities or focal airspace disease. ? Dictated by: Damien Ramirez M.D. on 04/24/2022 at 8:04 ? ? ct cervical: Radiologist's Impression: CT Scan Report Signed Patient: Daisy oMrrow MR#: [id number] : 1965 Acct:[id number] Age/Sex: 56 / F Date of Service: 04/24/22 Loc: ED Accession Number: [id number] ?? Procedure: CT cervical spine wo con Ordering Provider: Bing Calero D.O. PROCEDURE:? CT CERVICAL SPINE WO CON ? INDICATIONS:? worsening neck pain prior surgery L ulnar pain ? TECHNIQUE:? Noncontrast 3 mm thick sections acquired from the skull base to the T4 level.? Sagittal and coronal reformats were then constructed.? For radiation dose reduction, the following was used:? automated exposure control, adjustment of mA and/or kV according to patient size.? ? COMPARISON:? None. ? FINDINGS:? Image quality:? Excellent.? ? Bones:? There is bony fusion at C6-7 level.? No fractures or dislocations.? Loss of disc height, degenerative endplate changes and bilateral facet hypertrophic changes are noted at C3-4 through C7-T1 levels more prominent at C5-6 level.? Visualized superior ribs are intact.? ? Soft tissues:? Prevertebral soft tissues are normal in thickness.? No paravertebral hematomas.? No apical pneumothoraces.? ? ? IMPRESSION:? 1. No acute cervical spine fracture or dislocation.? 2. Bony fusion at C6-7 level.? Degenerative disc disease throughout cervical spine most prominent at C5-6 level. ? ? Dictated by: Fermin Manzano M.D. on 04/24/2022 at 8:51 ? ? Approved by: Fermin Manzano M.D. on 04/24/2022 at 9:02 ? ECG Data Interpretation: No sinus rhythm rate 86 GA interval [address] changes no T-wave inversion MDM Narrative Medical decision making narrative: The patient has without like radiculopathy and ulnar nerve distribution ongoing for last 2 weeks. It is not helped with steroids. His talked to her about not taking steroids and NSAIDs together she understands. She is asking for Chamberlain. She really has no sign of respiratory distress. BNP is mildly more elevated than has been previously today is 300 previous 100. Chest x-ray is clear no acute respiratory distress. She states that she is on Lasix is all ready. At this time we discussed increasing her Lasix to twice a day for least 2 days to see if it helps her breathing at all. Will try her on gabapentin for the neuropathy in her left arm. She is being set up with Neurosurgery in [place] She does have leukocytosis of 17 but likely due to 2 courses of steroids. Unlikely to be infection she has no other infectious symptoms. Discharge Plan Departure Patient Disposition: Home Clinical Impression: Neuropathy Instructions: DI for Peripheral Neuropathy Activity Restrictions/Additional Instructions: *You have been diagnosed with neuropathy *What to do: At this time please continue pursuing evaluation with neuro surgery. *Continue to take medications as directed-> [facility] Gabap[facility] 300 mg at night Chamberlain 1 tablet every 6 hours only if needed for severe pain Lasix 40 mg twice a day for 2 days then resume once a day, see if this helps her breathing *Follow up with your primary care provider in 2-3 days or call [phone] *Return to ER if you should have increasing pain weakness shortness of breath fever or any new, worsening or concerning symptoms CONTROLLED SUBSTANCE DISCHARGE (Narcotoic/benzodiazepine/Flexeril/Phenergan) 1. You have been prescribed narcotic medications, it does have acetaminophen/Tylenol/paracetamol in it, DO NOT TAKE MORE THAN 4,00mg in 24 hours of Tylenol. TRAMADOL DOES NOT CONTAIN TYLENOL 2. Please understand that we cannot provide further refills of narcotics, benzodiazepines or controlled substances through the ED and her pain management will need to be through your provider. 3. While on these medications you cannot drive or operate heavy machinery. 4. You cannot sign legal documents or perform any duties such as this. 5. As long as you're taking opiate pain medications he should also be taking a stool softener such as Colace, Dulcolax, MiraLAX or prune juice, to help avoid constipation. Prescriptions: New gabapentin 300 mg capsule 300 mg PO BEDTIME Qty: 14 0RF hydrocodone-acetaminophen 5-325 mg tablet 1 tab PO Q6H PRN (Reason: pain) Qty: 10 0RF No Action febuxostat [Uloric] 40 MG tablet 40 mg PO BEDTIME Qty: 0 lansoprazole 15 MG capsule,delayed release(DR/EC) 15 mg PO BEDTIME Qty: 0 evolocumab 140 mg/mL syringe 140 mg SUBCUT Q2W Qty: 2 2RF prednisone 20 mg tablet See Rx Instructions PO DAILY 7 Days Qty: 10 1RF Rx Instructions: 2 tabs for 3 days, then 1 tab for 4 days alprazolam 1 mg tablet 1 mg PO DAILY PRN (Reason: Procedural anxiety) Qty: 1 1RF albuterol sulfate 90 mcg/actuation HFA aerosol inhaler 2 puff Inhalation Q3H PRN (Reason: Wheezing) Qty: 8.5 11RF ipratropium-albuterol 0.5 mg-3 mg(2.5 mg base)/3 mL solution for nebulization 3 ml INHALATION QID PRN (Reason: asthma exac) Qty: 180 5RF fluticasone propion-salmeterol [Advair Diskus] 250-50 mcg/dose blister with device 1 inh INHALATION BID Qty: 60 5RF spironolactone 50 mg tablet 100 mg PO DAILY Qty: 180 1RF furosemide 40 mg tablet 40 mg PO DAILY Qty: 90 1RF montelukast 10 mg tablet 10 mg PO DAILY Qty: 90 1RF duloxetine [Cymbalta] 30 mg capsule,delayed release(DR/EC) 90 mg PO DAILY Qty: 270 1RF albuterol sulfate 1.25 mg/3 mL solution for nebulization 1.25 mg INHALATION Q4H PRN (Reason: asthma exac) Qty: 90 0RF Humalog U-100 Insulin 100 unit/mL Cartridge 200 unit continuous IV infusion DIRECTED PRN (Reason: Hyperglycemia) Rx Instructions: pt has T-slim pump with humalog insulin. pump dosing adjusted based on CBG and PO intake meloxicam 7.5 mg tablet 7.5 mg PO BID Qty: 20 0RF dexamethasone 4 mg tablet See Rx Instructions .ROUTE .COMPLEX Qty: 21 0RF Rx Instructions: Take 6 tablets p.o. x1 day, 5 tablets p.o. x1 day, 4 tablets p.o. x1 day, 3 tablets p.o. x1 day, 2 tablets p.o. x1 day, 1 tablet p.o. x1 day Referrals: Tk Pike MD [Primary Care Provider] - Visit Report Forms: Patient Portal/API
[2022-04-24 07:52] LABS: Add Manual Diff / Slide Review NO; Basophils Absolute Auto 100 /uL (0-100); Basophils Percent Auto 0.3 % (0-2); Eosinophils Absolute Auto 0 /uL (0-450); Lymphocytes Absolute Auto 1500 /uL (1100-4500); Lymphocytes Percent Auto 8.3 % (25-40); Mean Corpuscular HGB Conc 33.3 % (30-36); Mean Corpuscular Hemoglobin 28.1 PG (26-34); Mean Corpuscular Volume 84.4 fL (80-100); Monocytes Absolute Auto 700 /uL (0-900); Monocytes Percent Auto 3.8 % (3-14); Neutrophils Absolute Auto 15600 /uL (1500-7000); Neutrophils Percent Auto 87.6 % (50-75); Platelet Count 378 X10^3/uL (150-400); Red Blood Cell Count 4.62 X10^6/uL (4.0-5.2); White Blood Cell Count 17.8 X10^3/uL (4.5-11.0)
[2022-04-24 07:56] LABS: Alanine Aminotransferase 26 IU/L (<35); Albumin 4.6 g/dL (3.5-5.0); Albumin Globulin Ratio 1.6 (1.0-2.8); Alkaline Phosphatase 83 U/L (38-126); Aspartate Aminotransferase 24 IU/L (14-36); BUN Creatinine Ratio 24.6 (6-22); Bilirubin Total 0.5 mg/dL (0.2-1.3); Blood Urea Nitrogen 31 mg/dL (7-17); Calcium 9.8 mg/dL (8.4-10.2); Carbon Dioxide 25 mmol/L (22-32); Chloride 102 mmol/L (98-107); Creatine Kinase 71 U/L (30-135); Estimated Glomerular Filt Rate 49 mL/min (>60); Globulin 2.9 g/dL (1.7-4.1); Glucose 188 mg/dL (70-100); HEMOLYSIS < 15 (0-50); Lipase 51 U/L (23-300); Magnesium 2.3 mg/dL (1.6-2.3); Potassium 4.6 mmol/L (3.4-5.1); Sodium 136 mmol/L (137-145); Total Protein 7.5 g/dL (6.3-8.2)
[2022-04-24 08:08] LABS: Troponin I < 0.012 ng/mL (0.01-0.034)
--- NOTE | 2022-04-24 08:14 | DI.CT.S_ITS ---
PROCEDURE: CT CERVICAL SPINE WO CON INDICATIONS: worsening neck pain prior surgery L ulnar pain TECHNIQUE: Noncontrast 3 mm thick sections acquired from the skull base to the T4 level. Sagittal and coronal reformats were then constructed. For radiation dose reduction, the following was used: automated exposure control, adjustment of mA and/or kV according to patient size. COMPARISON: None. FINDINGS: Image quality: Excellent. Bones: There is bony fusion at C6-7 level. No fractures or dislocations. Loss of disc height, degenerative endplate changes and bilateral facet hypertrophic changes are noted at C3-4 through C7-T1 levels more prominent at C5-6 level. Visualized superior ribs are intact. Soft tissues: Prevertebral soft tissues are normal in thickness. No paravertebral hematomas. No apical pneumothoraces. IMPRESSION: 1. No acute cervical spine fracture or dislocation. 2. Bony fusion at C6-7 level. Degenerative disc disease throughout cervical spine most prominent at C5-6 level. Dictated by: Fermin Manzano M.D. on 04/24/2022 at 8:51 Approved by: Fermin Manzano M.D. on 04/24/2022 at 9:02
[2022-04-24 08:30] LABS: D Dimer < 200 ng/mL (<230)
[2022-04-24 08:39] LABS: NT-proBNP (BNP-Adult 18+) 336 pg/mL (<125)
[2022-04-24] MEDS: HYDROCODONE/ACET 5/325 TABLET 1 TAB PO (09:16)
== END 2022-04-24 10:01 | disposition home or self-care (01) ==
PROVIDERS: Emergency Provider Emergency Medicine; PCP Student in an Organized Health Care Education/Training Program
DX: G62.9 Polyneuropathy, unspecified (principal); M54.2 Cervicalgia; R07.9 Chest pain, unspecified
CPT/HCPCS: 36415; 71045; 72125; 80053; 82550; 83690; 83735; 83880; 84484; 85025; 85379; 93005; 93010; 99284

== ENCOUNTER → 2022-05-01 16:37 | Outpatient (CLI) | payer OTHER, SELFPAY ==
[2020-12-12 18:38] VITALS: BMI 35.4
--- NOTE | 2022-05-01 16:38 | DI.MRI.S_ITS ---
PROCEDURE: MR CERVICAL SPINE WO CON INDICATIONS: Cervical radiculopathy TECHNIQUE: Noncontrast sagittal T1 spin echo and T2 fast spin echo, sagittal STIR, foraminal oblique sagittal T2 fast spin echo, and axial gradient echo or T2 fast spin echo through the cervical spine. COMPARISON: [facility], CT, CT CERVICAL SPINE WO CON, 04/24/2022, 8:21. FINDINGS: Image quality: Excellent. Alignment and Curvature: There is normal bony alignment. Bones: Modic type 2 reactive endplate changes noted adjacent to the C5-C6 disc. C6-C7 ankylosis noted. Spinal Cord: Visualized spinal cord has normal size and signal. No cerebellar tonsillar herniation. Paraspinous Soft Tissues: No paravertebral masses. Prevertebral soft tissues are normal in thickness. C2-C3: There is loss of disc signal. No central stenosis. No neural foraminal narrowing. No neural compression. C3-C4: Loss of disc signal and height. Moderate, diffuse disc bulge. Mild bilateral facet hypertrophy. Moderate narrowing of the central canal. Moderate bilateral neural foraminal narrowing. No neural compression. C4-C5: Loss of disc signal. Mild, diffuse disc bulge. Mild bilateral facet hypertrophy. Mild narrowing of the central canal. Moderate right and mild left neural foraminal narrowing. No neural compression. C5-C6: Normal appearance. C6-C7: No central stenosis. No neural foraminal narrowing. No neural compression. C7-T1: And height. Mild, diffuse disc bulge. Mild narrowing of the central canal. Mild bilateral facet hypertrophy. Moderate right and mild left neural foraminal narrowing. No neural compression. IMPRESSION: 1. Multilevel degenerative disc disease. 2. Multilevel facet arthropathy. 3. Severe C5-C6 central canal narrowing with compression of the cervical spinal cord. 4. Severe bilateral C5-C6 neural foraminal narrowing with compression of the exiting C6 nerve roots. Dictated by: Michela Smith MD, PhD on 05/01/2022 at 20:00 Approved by: Michela Smith MD, PhD on 05/01/2022 at 20:04
== END ==
PROVIDERS: PCP Student in an Organized Health Care Education/Training Program; Referring Provider Student in an Organized Health Care Education/Training Program; Visit Provider Student in an Organized Health Care Education/Training Program
DX: M50.11 Cervical disc disorder with radiculopathy, high cervical region (principal); M47.22 Other spondylosis with radiculopathy, cervical region; M48.02 Spinal stenosis, cervical region; G62.9 Polyneuropathy, unspecified
CPT/HCPCS: 72141

== ENCOUNTER → 2022-05-29 11:49 | Outpatient (CLI) | payer OTHER, SELFPAY ==
[2020-12-12 18:38] VITALS: BMI 35.4
[2022-05-29 14:08] LABS: Blood Urea Nitrogen 17 mg/dL (7-17); Calcium 9.5 mg/dL (8.4-10.2); Carbon Dioxide 28 mmol/L (22-32); Chloride 102 mmol/L (98-107); Estimated Glomerular Filt Rate 56 mL/min (>60); Glucose 185 mg/dL (70-100); HEMOLYSIS < 15 (0-50); Potassium 3.9 mmol/L (3.4-5.1); Sodium 141 mmol/L (137-145); Uric Acid 8.5 mg/dL (2.5-6.2)
== END ==
PROVIDERS: PCP Student in an Organized Health Care Education/Training Program; Referring Provider Student in an Organized Health Care Education/Training Program; Visit Provider Student in an Organized Health Care Education/Training Program
DX: E11.9 Type 2 diabetes mellitus without complications (principal); M10.9 Gout, unspecified; N18.9 Chronic kidney disease, unspecified
CPT/HCPCS: 36415; 80048; 84550

== ENCOUNTER → 2022-08-18 14:29 | Outpatient (CLI) | payer OTHER, SELFPAY ==
[2020-12-12 18:38] VITALS: BMI 35.4
== END ==
PROVIDERS: PCP Student in an Organized Health Care Education/Training Program; Referring Provider Internal Medicine; Visit Provider Internal Medicine
DX: Z23 Encounter for immunization (principal)
CPT/HCPCS: 90471; 90686

== ENCOUNTER → 2022-10-02 14:20 | Outpatient (CLI) | payer OTHER, SELFPAY ==
[2020-12-12 18:38] VITALS: BMI 35.4
--- NOTE | 2022-10-02 | DI.RAD.S_ITS ---
PROCEDURE: XR CERVICAL SPINE 4V OR 5V INDICATIONS: Radiculopathy, cervical region TECHNIQUE: 5 views of the cervical spine were acquired. COMPARISON: None. FINDINGS: Bones: Disc space narrowing and hypertrophic facet joints noted in the lower cervical spine. C5-6 discectomy and fusion with anterior plate and screw hardware. Flexion extension images shows no segmental instability Soft tissues: Prevertebral soft tissues are normal in thickness. IMPRESSION: Degenerative disc disease and arthropathy without evidence of segmental instability. C5-6 discectomy and fusion with anterior plate and screw hardware Approved by: Josiah Moore M.D. on 10/02/2022 at 17:51
== END ==
PROVIDERS: PCP Student in an Organized Health Care Education/Training Program; Referring Provider Neurological Surgery; Visit Provider Neurological Surgery
DX: M50.10 Cervical disc disorder with radiculopathy, unspecified cervical region (principal); Z98.1 Arthrodesis status
CPT/HCPCS: 72040

== ENCOUNTER → 2022-11-12 12:28 | Outpatient (CLI) | payer OTHER, SELFPAY ==
[2020-12-12 18:38] VITALS: BMI 35.4
[2022-11-12 13:47] LABS: Influenza A - CEPHEID Flu A NEGATIVE (NEGATIVE); Influenza B - CEPHEID Flu B NEGATIVE (NEGATIVE); Respiratory Syncytial Virus Negative (Negative)
[2022-11-12 14:14] LABS: COVID-19 CEPHEID 4-PLEX PCR Negative (Negative)
== END ==
PROVIDERS: PCP Student in an Organized Health Care Education/Training Program; Visit Provider Registered Nurse
DX: J06.9 Acute upper respiratory infection, unspecified (principal)
CPT/HCPCS: 0241U

== ENCOUNTER 2022-11-14 14:43 | Emergency (ER) | payer OTHER, SELFPAY ==
[2020-12-12 18:38] VITALS: BMI 35.4
[2022-11-14 15:06] VITALS: BP 173/77; PULSE 107; RESP 18; TEMP 36.6; O2SAT 95; BMI 36.3
--- NOTE | 2022-11-14 15:10 | DI.RAD.S_ITS ---
PROCEDURE: XR CHEST 2V INDICATIONS: shortness of breath TECHNIQUE: 2 views of the chest were acquired. COMPARISON: [facility], CR, XR CHEST 2V, 12/04/2018, 12:38. FINDINGS: Surgical changes and devices: None. Lungs and pleura: Lungs are clear. No pleural effusions or pneumothorax. Mediastinum: Mediastinal contours are normal. Heart size is normal. Bones and chest wall: No suspicious bony abnormalities. Soft tissues appear unremarkable. IMPRESSION: No acute cardiopulmonary process demonstrated radiographically. Dictated by: Benjy Ndiaye M.D. on 11/14/2022 at 15:48 Approved by: Benjy Ndiaye M.D. on 11/14/2022 at 15:49
== END 2022-11-14 16:49 | disposition left against medical advice (07) ==
PROVIDERS: Emergency Provider Emergency Medicine; PCP Student in an Organized Health Care Education/Training Program
DX: R06.02 Shortness of breath (principal)
CPT/HCPCS: 71046; 99281

== ENCOUNTER 2022-11-15 09:46 | Emergency (ER) | payer OTHER, SELFPAY ==
[2020-12-12 18:38] VITALS: BMI 35.4
[2022-11-15 10:10] VITALS: BP 171/83; PULSE 98; RESP 16; TEMP 36.2; O2SAT 97; BMI 36.8
--- NOTE | 2022-11-15 12:48 | ED.URI ---
HPI - URI/Sore Throat <Tonja Arnold PA-C - Last Filed: 11/15/22 14:04> General Chief Complaint: Upper Respiratory Symptoms Stated Complaint: headache,congestion,coughing, asthma issues Time Seen by Provider: 11/15/22 12:47 History of Present Illness HPI Narrative: Patient is 57 years old female with PMH significant for diabetes mellitus, asthma, hypertension osteoarthritis, has been suffering with upper respiratory symptoms and exacerbation of asthma. She was seen in walk-in clinic, was tested negative for RSV COVID-19 influenza. She was placed on 5 day course of steroids however she did not notice any improvement. Patient is diabetic states on steroids, her blood glucose is controlled, as she uses pump. Currently describes coughing, shortness of breath with productive sputum, green brown, coughing fits throughout the night. To make things worse, she ran out of her DuoNeb inhaler at home. Denies fever chills. Admits to headache, and feeling exhausted due to viral syndrome. Related Data Home Medications Medication Instructions Recorded Confirmed lansoprazole 15 mg capsule,delayed 15 mg PO BEDTIME ##0 11/21/16 05/28/22 release insulin lispro 100 unit/mL 200 unit continuous IV infusion 12/12/20 05/28/22 subcutaneous cartridge (Humalog DIRECTED PRN Hyperglycemia U-100 Insulin) Previous Rx's Medication Instructions Recorded albuterol sulfate 1.25 mg/3 mL 1.25 mg (3 mL) inhalation Q4H PRN 12/01/18 solution for nebulization asthma exac #90 mL albuterol sulfate 90 mcg/actuation 2 puff inhalation Q3H PRN Wheezing 02/26/22 aerosol inhaler #8.5 grams fluticasone 250 mcg-salmeterol 50 1 inh inhalation BID #60 ea 02/26/22 mcg/dose blistr powdr for inhalation (Advair Diskus) ipratropium 0.5 mg-albuterol 3 mg 3 ml inhalation QID PRN asthma 02/26/22 (2.5 mg base)/3 mL nebulization exac #180 mL soln gabapentin 600 mg tablet 600 mg PO TID #90 tabs 04/28/22 meloxicam 7.5 mg tablet 7.5 mg PO BID #60 tabs 04/28/22 febuxostat 80 mg tablet 80 mg PO BEDTIME #90 tabs 05/29/22 duloxetine 30 mg capsule,delayed 90 mg PO DAILY #270 caps 09/11/22 release (Cymbalta) furosemide 40 mg tablet 40 mg PO DAILY #90 tabs 09/11/22 montelukast 10 mg tablet 10 mg PO DAILY #90 tabs 09/11/22 spironolactone 50 mg tablet 100 mg PO DAILY #180 tabs 09/11/22 doxycycline hyclate 100 mg capsule 100 mg PO BID 21 days #42 caps 11/15/22 methylprednisolone 4 mg tablets in See Rx Instructions PO .COMPLEX 11/15/22 a dose pack (Medrol (Chandan)) #21 ea Allergies Allergy/AdvReac Type Severity Reaction Status Date / Time levofloxacin [From LEVAQUIN] Allergy Intermediate RASH Verified 11/14/22 15:09 aspirin [ASPIRIN] Allergy Unknown Verified 11/14/22 15:09 azithromycin [AZITHROMYCIN] Allergy Unknown Verified 11/14/22 15:09 diclofenac [DICLOFENAC] Allergy Unknown Verified 11/14/22 15:09 tramadol [TRAMADOL] Allergy Unknown Verified 11/14/22 15:09 [id number] Reductase AdvReac Intermediate muscle pain Verified 11/14/22 15:09 Inhibitor Review of Systems <Tonja Arnold PA-C - Last Filed: 11/15/22 14:04> Review of Systems Narrative: GENERAL: Denies chills, admits to fatigue, malaise, low-grade fever, no sweats. HEENT: Denies sinus pain, ear pain, has some sore throat, denies difficulty swallowing, admits dizziness short-lived. RESPIRATORY: Admits to dyspnea, cough, wheezing, sputum denies hemoptysis,. CARDIOVASCULAR: Denies chest pain, palpitations, admits to orthopnea, edema, GASTROINTESTINAL: Denies nausea, vomiting, abdominal pain, diarrhea, constipation, melena. : Denies dysuria, frequency, incontinence, hematuria, urinary retention. MUSCULOSKELETAL: denies weakness, joint pain, admits to ribcage pain from coughing SKIN: Denies rash, skin lesions, or other NEUROLOGIC: Denies weakness, headache, numbness, change in speech, confusion, seizures, incoordination. PSYCHIATRIC: No concerning psychosocial issues. 12 point review of systems is negative except for those stated above Patient History <Tonja Arnold PA-C - Last Filed: 11/15/22 14:04> Medical History Allergies (~1965) Anxiety and depression (~1984) Asthma (~1962) Carpal tunnel syndrome (~2014) Cervical vertebral fusion Chicken pox (~1969) Chronic back pain CKD (chronic kidney disease) (~2017) Cubital tunnel syndrome Cubital tunnel syndrome of both upper extremities Degenerative disc disease, lumbar Eczema (~1962) GERD (gastroesophageal reflux disease) (~1989) Gout Headache (~1974) Hearing loss HTN (hypertension) (~1983) Hyperaldosteronism Irritable bowel syndrome (~1989) Mumps (~1967) NAFLD (nonalcoholic fatty liver disease) Peripheral neuropathy Retinopathy Statin intolerance Type 2 diabetes mellitus (~2009) Surgical History Anesthesia H/O: hysterectomy (~2006) History of cholecystectomy (~2013) History of microdiscectomy (~1999) Previous section S/P lumbar laminectomy (~1990) Status post cervical discectomy Family History Mother History of heart disease Mental health problem COPD (chronic obstructive pulmonary disease) History of emphysema Sister Breast cancer Social History household members: spouse Smoking Status: Never smoker alcohol intake: current Smoking Status: Never smoker alcohol intake frequency: other Substance Use Type: does not use Exam <Tonja Arnold PA-C - Last Filed: 11/15/22 14:04> Narrative Exam Narrative: GENERAL: 57 year old patient appears stated age. Well-developed patient, in mild distress due to asthma exacerbation coughing frequently. HEAD: Atraumatic. Normocephalic. EYES: Pupils equal round and reactive. Extraocular motions intact. No scleral icterus. No injection or drainage. ENT: Nose without bleeding, purulent drainage. Throat without erythema, tonsillar hypertrophy or exudate. Airway patent. NECK: Trachea midline. Non tender CARDIOVASCULAR: Regular rate and rhythm without murmurs, gallops, or rubs. RESPIRATORY: There are scattered wheezes worsened anterior lobes, posterior lobes with rales, not cleared with cough GASTROINTESTINAL: Abdomen soft, non-tender, nondistended. EXTREMITIES: No edema or joint tenderness. BACK: Nontender without deformity or crepitance. No flank tenderness. NEURO: AOx3. No focal deficits SKIN: No rash or erythema of visible areas Initial Vital Signs Initial Vital Signs: Vital Signs Temperature 97.1 F L 11/15/22 10:10 Pulse Rate 98 H 11/15/22 10:10 Respiratory Rate 16 11/15/22 10:10 Blood Pressure 171/83 H 11/15/22 10:10 Pulse Oximetry 97 11/15/22 10:10 Oxygen Delivery Method 11/15/22 10:10 <Bing Calero DO - Last Filed: 11/20/22 07:32> Initial Vital Signs Initial Vital Signs: Vital Signs Temperature 97.1 F L 11/15/22 10:10 Pulse Rate 98 H 11/15/22 10:10 Respiratory Rate 16 11/15/22 10:10 Blood Pressure 171/83 H 11/15/22 10:10 Pulse Oximetry 97 11/15/22 10:10 Oxygen Delivery Method 11/15/22 10:10 Course <Tonja Arnold PA-C - Last Filed: 11/15/22 14:04> Orders Ordered: Discontinued Medications Albuterol/Ipratropium (Albuterol/Ipratropium 3 Ml Ampul) 3 ml INH NOW ONE Stop: 11/15/22 12:59 Last Admin: 11/15/22 13:31 Dose: 3 ml Documented By: MELINDA Vital Signs Vital signs: Vital Signs - 8 hr 11/15/22 10:10 11/15/22 13:31 11/15/22 13:52 Temperature 97.1 F L Pulse Rate 98 H 91 H 94 H Respiratory Rate 16 16 20 Blood Pressure 171/83 H 150/72 H Pulse Oximetry 97 97 95 Oxygen Delivery Method Room Air Room Air <Bing Calero DO - Last Filed: 11/20/22 07:32> Orders Ordered: Discontinued Medications Albuterol/Ipratropium (Albuterol/Ipratropium 3 Ml Ampul) 3 ml INH NOW ONE Stop: 11/15/22 12:59 Last Admin: 11/15/22 13:31 Dose: 3 ml Documented By: MELINDA Vital Signs Vital signs: Vital Signs - 8 hr 11/15/22 10:10 11/15/22 13:31 11/15/22 13:52 Temperature 97.1 F L Pulse Rate 98 H 91 H 94 H Respiratory Rate 16 16 20 Blood Pressure 171/83 H 150/72 H Pulse Oximetry 97 97 95 Oxygen Delivery Method Room Air Room Air MDM - URI/Sore Throat <Tonja KELIN Arnold - Last Filed: 11/15/22 14:04> Imaging Data Chest x-ray: Radiologist's Impression: On November 14 Bones and chest wall:? No suspicious bony abnormalities.? Soft tissues appear unremarkable.? ? IMPRESSION:? No acute cardiopulmonary process demonstrated radiographically. MDM Narrative Medical decision making narrative: Discussed with patient diagnosis and treatment. Several etiologies for patient's symptoms considered including: Her underlying asthma, viral syndrome, however there is concern for superimposed bronchitis Patient's symptoms improved over duration of stay with DuoNeb therapy Patient was instructed to continue with her asthma medication, incorporating DuoNeb, short course of steroids, and add doxycycline for suspected acute bronchitis.. Findings and discharge diagnosis discussed with patient/family followed by verbalization of understanding Return precautions discussed with patient/family whom verbalize understanding. Discharge Plan Departure Patient Disposition: Home Clinical Impression: Acute bronchiolitis with bronchospasm Asthma exacerbation Qualifiers: Asthma severity: moderate Instructions: Acute Bronchitis, Bronchospasm-Adult Activity Restrictions/Additional Instructions: *You have been diagnosed with acute asthma exacerbation acute bronchitis with bronchospasm *What to do: *Please continue to take your regular medications as directed. New medication prescriptions sent to your pharmacy Doxycycline and Medrol dose pack *Please follow up with your primary care provider in 2-3 days, call for an appointment. Let them know you were seen in the Emergency Department and that we ask that you be seen in follow up. We will electronically transmit a record of today's note if your PCP is in our system *If you do not have a primary care provider please contact the [facility] Resource line at [phone]. They will ask some questions about your medical history and help get you set up with a doctor in the community. *Return to Emergency Department if you should have any new, worsening or concerning symptoms, such as [fever greater than 101 F, shaking chills, worsening pain, persistent vomiting or other bothersome symptoms] Prescriptions: New doxycycline hyclate 100 mg capsule 100 mg PO BID 21 Days Qty: 42 0RF methylprednisolone [Medrol (Chandan)] 4 mg tablets,dose pack See Rx Instructions .ROUTE .COMPLEX Qty: 21 0RF Rx Instructions: orally per package directions No Action lansoprazole 15 MG capsule,delayed release(DR/EC) 15 mg PO BEDTIME Qty: 0 albuterol sulfate 90 mcg/actuation HFA aerosol inhaler 2 puff Inhalation Q3H PRN (Reason: Wheezing) Qty: 8.5 11RF ipratropium-albuterol 0.5 mg-3 mg(2.5 mg base)/3 mL solution for nebulization 3 ml INHALATION QID PRN (Reason: asthma exac) Qty: 180 5RF fluticasone propion-salmeterol [Advair Diskus] 250-50 mcg/dose blister with device 1 inh INHALATION BID Qty: 60 5RF febuxostat 80 mg tablet 80 mg PO BEDTIME Qty: 90 3RF montelukast 10 mg tablet 10 mg PO DAILY Qty: 90 1RF duloxetine [Cymbalta] 30 mg capsule,delayed release(DR/EC) 90 mg PO DAILY Qty: 270 1RF spironolactone 50 mg tablet 100 mg PO DAILY Qty: 180 1RF furosemide 40 mg tablet 40 mg PO DAILY Qty: 90 1RF meloxicam 7.5 mg tablet 7.5 mg PO BID Qty: 60 1RF gabapentin 600 mg tablet 600 mg PO TID Qty: 90 1RF albuterol sulfate 1.25 mg/3 mL solution for nebulization 1.25 mg INHALATION Q4H PRN (Reason: asthma exac) Qty: 90 0RF Humalog U-100 Insulin 100 unit/mL Cartridge 200 unit continuous IV infusion DIRECTED PRN (Reason: Hyperglycemia) Rx Instructions: pt has T-slim pump with humalog insulin. pump dosing adjusted based on CBG and PO intake Referrals: Tk Pike MD [Primary Care Provider] - <Bing Calero DO - Last Filed: 11/20/22 07:32> Cosign ED Attending Alysaature Attestation: I was immediately available in the department for consultation. Documentation has been reviewed. I agree with assessment and plan.
[2022-11-15 13:31] VITALS: PULSE 91; RESP 16; O2SAT 97
[2022-11-15] MEDS: ALBUTEROL/IPRATROPIUM 3 ML AMPUL INH (13:31)
[2022-11-15 13:52] VITALS: BP 150/72; PULSE 94; RESP 20; O2SAT 95
== END 2022-11-15 13:55 | disposition home or self-care (01) ==
PROVIDERS: Emergency Provider Physician Assistant Medical; PCP Student in an Organized Health Care Education/Training Program
DX: J21.9 Acute bronchiolitis, unspecified (principal); J45.901 Unspecified asthma with (acute) exacerbation; Z79.899 Other long term (current) drug therapy
CPT/HCPCS: 94640; 99283

== ENCOUNTER → 2022-12-28 07:07 | Outpatient (CLI) | payer OTHER, SELFPAY ==
[2020-12-12 18:38] VITALS: BMI 35.4
[2022-12-28 08:51] LABS: Alanine Aminotransferase 35 IU/L (<35); Albumin 4.4 g/dL (3.5-5.0); Albumin Globulin Ratio 1.4 (1.0-2.8); Alkaline Phosphatase 102 U/L (38-126); Aspartate Aminotransferase 33 IU/L (14-36); BUN Creatinine Ratio 15.5 (6-22); Bilirubin Total 0.6 mg/dL (0.2-1.3); Blood Urea Nitrogen 16 mg/dL (7-17); Calcium 9.6 mg/dL (8.4-10.2); Carbon Dioxide 30 mmol/L (22-32); Chloride 96 mmol/L (98-107); Cholesterol 251 mg/dL (140-199); Estimated Glomerular Filt Rate > 60 mL/min (>60); Globulin 3.1 g/dL (1.7-4.1); Glucose 170 mg/dL (70-100); HDL Cholesterol 36 mg/dL (40-60); HEMOLYSIS < 15 (0-50); LDL Cholesterol Calculated 178 mg/dL (<100); Potassium 4.3 mmol/L (3.4-5.1); Sodium 139 mmol/L (137-145); Total Protein 7.5 g/dL (6.3-8.2); Triglycerides 184 mg/dL (35-150)
[2022-12-28 10:37] LABS: Creatinine Urine Random 140.9 mg/dL
[2022-12-28 10:42] LABS: Microalbumi Creatinin Ratio Ur 5.6 ug/mg CR (<30); Microalbumin Urine Random 0.8 mg/dL (0-1.6)
== END ==
PROVIDERS: PCP Student in an Organized Health Care Education/Training Program; Referring Provider Nurse Practitioner; Visit Provider Nurse Practitioner
DX: E11.22 Type 2 diabetes mellitus with diabetic chronic kidney disease (principal); E78.2 Mixed hyperlipidemia
CPT/HCPCS: 36415; 80053; 80061; 82043; 82570; 83036

== ENCOUNTER 2023-01-22 08:29 | Emergency (ER) | payer OTHER, SELFPAY ==
[2020-12-12 18:38] VITALS: BMI 35.4
[2023-01-22 08:36] VITALS: BP 129/83; PULSE 100; O2SAT 96
--- NOTE | 2023-01-22 08:42 | ED.SOB ---
HPI - SOB/Dyspnea General Chief Complaint: Upper Respiratory Symptoms Stated Complaint: coughing/sinus causing asthma to act up Time Seen by Provider: 01/22/23 08:32 History of Present Illness HPI Narrative: Patient 57-year-old female history severe obstructive asthma, type 2 insulin-dependent diabetes, hypertension presenting today with ongoing cough and fever. She reports that she is had a nonproductive spastic cough ongoing for last 6-8 weeks. She has intermittently been on steroids in fact she finished 5 days ago she at 1 point was on antibiotics. She developed fever and increasing weakness 4 days ago. She is not had a fever yet today however she did have fever last night. Last night she says she was unable to lie flat because coughing. She does not really have chest pain but body aches. She would 1 episode of diarrhea this morning. No nausea or vomiting. She certainly has decrease in appetite. She reports using nebulizer very frequently more so than normal Related Data Home Medications Medication Instructions Recorded Confirmed lansoprazole 15 mg capsule,delayed 15 mg PO BEDTIME ##0 11/21/16 01/19/23 release insulin lispro 100 unit/mL 200 unit continuous IV infusion 12/12/20 01/19/23 subcutaneous cartridge (Humalog DIRECTED PRN Hyperglycemia U-100 Insulin) Previous Rx's Medication Instructions Recorded albuterol sulfate 1.25 mg/3 mL 1.25 mg (3 mL) inhalation Q4H PRN 12/01/18 solution for nebulization asthma exac #90 mL albuterol sulfate 90 mcg/actuation 2 puff inhalation Q3H PRN Wheezing 02/26/22 aerosol inhaler #8.5 grams fluticasone 250 mcg-salmeterol 50 1 inh inhalation BID #60 ea 02/26/22 mcg/dose blistr powdr for inhalation (Advair Diskus) ipratropium 0.5 mg-albuterol 3 mg 3 ml inhalation QID PRN asthma 02/26/22 (2.5 mg base)/3 mL nebulization exac #180 mL soln febuxostat 80 mg tablet 80 mg PO BEDTIME #90 tabs 05/29/22 duloxetine 30 mg capsule,delayed 90 mg PO DAILY #270 caps 09/11/22 release (Cymbalta) furosemide 40 mg tablet 40 mg PO DAILY #90 tabs 09/11/22 montelukast 10 mg tablet 10 mg PO DAILY #90 tabs 09/11/22 spironolactone 50 mg tablet 100 mg PO DAILY #180 tabs 09/11/22 benzonatate 100 mg capsule 100 mg PO BID PRN cough #20 caps 01/13/23 Allergies Allergy/AdvReac Type Severity Reaction Status Date / Time levofloxacin [From LEVAQUIN] Allergy Intermediate RASH Verified 01/22/23 08:44 aspirin [ASPIRIN] Allergy Unknown Verified 01/22/23 08:44 azithromycin [AZITHROMYCIN] Allergy Unknown Verified 01/22/23 08:44 diclofenac [DICLOFENAC] Allergy Unknown Verified 01/22/23 08:44 tramadol [TRAMADOL] Allergy Unknown Verified 01/22/23 08:44 [id number]-[id number] Reductase AdvReac Intermediate muscle pain Verified 01/22/23 08:44 Inhibitor Review of Systems Review of Systems ROS Unobtainable: All systems reviewed & are unremarkable except as noted in HPI and below Patient History Medical History Allergies (~1964) Anxiety and depression (~1984) Asthma (~1962) Carpal tunnel syndrome (~2014) Cervical vertebral fusion Chicken pox (~1969) Chronic back pain CKD (chronic kidney disease) (~2017) Cubital tunnel syndrome Cubital tunnel syndrome of both upper extremities Degenerative disc disease, lumbar Eczema (~1962) GERD (gastroesophageal reflux disease) (~1989) Gout Headache (~1974) Hearing loss HTN (hypertension) (~1983) Hyperaldosteronism Irritable bowel syndrome (~1989) Mumps (~1967) NAFLD (nonalcoholic fatty liver disease) Peripheral neuropathy Retinopathy Statin intolerance Type 2 diabetes mellitus (~2009) Surgical History Anesthesia H/O: hysterectomy (~2006) History of cholecystectomy (~2013) History of microdiscectomy (~1999) Previous section S/P lumbar laminectomy (~1990) Status post cervical discectomy Family History Mother History of heart disease Mental health problem COPD (chronic obstructive pulmonary disease) History of emphysema Sister Breast cancer Social History household members: spouse Smoking Status: Never smoker alcohol intake: former Smoking Status: Never smoker alcohol intake frequency: other Substance Use Type: does not use Exam Initial Vital Signs Initial Vital Signs: Vital Signs Pulse Rate 100 H 01/22/23 08:36 Blood Pressure 129/83 01/22/23 08:36 Pulse Oximetry 96 01/22/23 08:36 GENERAL: Alert pleasant 57-year-old female HEENT: Head atraumatic,EOMI, pupils reactive, face symmetric, moist mucous membranes CARDIOVASCULAR: Regular rate and rhythm without murmurs, rubs or gallops. RESPIRATORY: Breath sounds equal bilaterally, no wheezes rales or rhonchi. Speaks in full sentences with respiratory distress ABDOMEN: Soft, nontender. Normoactive bowel sounds all 4 quadrants. No guarding or rebound. EXTREMITIES: Normal range of motion, no clubbing or edema. Neurovascularly intact NEUROLOGICAL: Alert and oriented x4.Normal gait and speech. SKIN: Warm, dry, no laceration, no petechiae, no rashes or lesions. Course Orders Ordered: ED Orders 01/22/23 08:40 Respiratory Panel (Film Array) Stat 01/22/23 08:45 Complete Blood Count AUTO DIFF Stat Comprehensive Metabolic Panel Stat Lactate (Lactic Acid) Stat Lipase Stat NT-proBNP (BNP-Adult 18+) Stat Procalcitonin Stat Troponin & CK Cardiac Panel Stat 01/22/23 08:46 XR chest 1V Stat EKG-12 Lead Stat Vital Signs Vital signs: Vital Signs - 8 hr 01/22/23 08:44 01/22/23 08:36 01/22/23 08:36 Temperature 98.3 F Pulse Rate 103 H 100 H Respiratory Rate 20 Blood Pressure 129/83 129/83 Pulse Oximetry 96 96 Oxygen Delivery Method Room Air 01/22/23 09:00 01/22/23 09:30 Temperature Pulse Rate 93 H 91 H Respiratory Rate Blood Pressure Pulse Oximetry 99 96 Oxygen Delivery Method MDM - SOB/Dyspnea Lab Data 01/22/23 08:45 01/22/23 08:45 Labs: Lab Results 01/22/23 01/22/23 01/22/23 Range/Units 08:40 08:45 08:45 WBC 11.6 H (4.5-11.0) X10^3/uL RBC 4.89 (4.0-5.2) X10^6/uL Hgb 13.4 (12.0-16.0) g/dL Hct 41.1 (36-46) % MCV 84.1 (80-100) fL MCH 27.3 (26-34) PG MCHC 32.5 (30-36) % RDW 14.0 (11.6-14.8) % Plt Count 366 (150-400) X10^3/uL Neut % (Auto) 63.3 (50-75) % Lymph % (Auto) 28.4 (25-40) % Granite % (Auto) 7.3 (3-14) % Eos % (Auto) 0.2 L (2-4) % Baso % (Auto) 0.8 (0-2) % Neut # (Auto) 7300 H (6853-2309) /uL Lymph # (Auto) 3300 (5584-7314) /uL Granite # (Auto) 800 (0-900) /uL Eos # (Auto) 0 (0-450) /uL Baso # (Auto) 100 (0-100) /uL Sodium 139 (137-145) mmol/L Potassium 3.4 (3.4-5.1) mmol/L Chloride 98 (98-107) mmol/L Carbon Dioxide 31 (22-32) mmol/L BUN 16 (7-17) mg/dL Creatinine 0.98 (0.52-1.04) mg/dL Estimated GFR > 60 (>60) mL/min BUN/Creatinine Ratio 16.3 (6-22) Glucose 97 (70-100) mg/dL Lactate (0.7-2.1) mmol/L Calcium 9.0 (8.4-10.2) mg/dL Total Bilirubin 0.3 (0.2-1.3) mg/dL AST 38 H (14-36) IU/L ALT 34 (<35) IU/L Alkaline Phosphatase 86 (38-126) U/L Total Creatine Kinase 187 H (30-135) U/L CK-MB (CK-2) 1.78 (<2.37) ng/mL CK-MB (CK-2) Rel Index 1.0 L (1.5-5.0) % Troponin I < 0.012 (0.01-0.034) ng/mL NT-Pro-B Natriuret Pep (<125) pg/mL Total Protein 7.6 (6.3-8.2) g/dL Albumin 4.4 (3.5-5.0) g/dL Globulin 3.2 (1.7-4.1) g/dL Albumin/Globulin Ratio 1.4 (1.0-2.8) Lipase 78 (23-300) U/L Procalcitonin 0.07 (<0.5) ng/mL Chlamy pneumoniae PCR Not detected (Not Detect) Adenovirus (PCR) Not detected (Not Detect) B. pertussis DNA (PCR) Not detected (Not Detecte) B.parapertussis DNA PCR Not detected (Not Detecte) Coronavirus OC43 (PCR) Not detected (Not Detect) Coronavirus HKU1 (PCR) Not detected (Not Detect) Coronavirus 229E (PCR) Not detected (Not Detect) SARS-CoV-2 (PCR) Detected H (Not Detecte) Coronavirus NL63 (PCR) Not detected (Not Detect) Human Metapneumovir PCR Not detected (Not Detect) Influenza Type A (PCR) Not detected (Not Detect) Influenza Type B (PCR) Not detected (Not Detect) M. pneumoniae (PCR) Not detected (Not Detect) Parainfluenza 1 (PCR) Not detected (Not Detect) Parainfluenza 2 (PCR) Not detected (Not Detect) Parainfluenza 3 (PCR) Not detected (Not Detect) Parainfluenza 4 (PCR) Not detected (Not Detect) RSV (PCR) Not detected (Not Detect) Entero/Rhino (PCR) Not detected (Not Detect) 01/22/23 01/22/23 Range/Units 08:45 08:45 WBC (4.5-11.0) X10^3/uL RBC (4.0-5.2) X10^6/uL Hgb (12.0-16.0) g/dL Hct (36-46) % MCV (80-100) fL MCH (26-34) PG MCHC (30-36) % RDW (11.6-14.8) % Plt Count (150-400) X10^3/uL Neut % (Auto) (50-75) % Lymph % (Auto) (25-40) % Granite % (Auto) (3-14) % Eos % (Auto) (2-4) % Baso % (Auto) (0-2) % Neut # (Auto) (5113-0304) /uL Lymph # (Auto) (3388-0268) /uL Granite # (Auto) (0-900) /uL Eos # (Auto) (0-450) /uL Baso # (Auto) (0-100) /uL Sodium (137-145) mmol/L Potassium (3.4-5.1) mmol/L Chloride (98-107) mmol/L Carbon Dioxide (22-32) mmol/L BUN (7-17) mg/dL Creatinine (0.52-1.04) mg/dL Estimated GFR (>60) mL/min BUN/Creatinine Ratio (6-22) Glucose (70-100) mg/dL Lactate 1.6 (0.7-2.1) mmol/L Calcium (8.4-10.2) mg/dL Total Bilirubin (0.2-1.3) mg/dL AST (14-36) IU/L ALT (<35) IU/L Alkaline Phosphatase (38-126) U/L Total Creatine Kinase (30-135) U/L CK-MB (CK-2) (<2.37) ng/mL CK-MB (CK-2) Rel Index (1.5-5.0) % Troponin I (0.01-0.034) ng/mL NT-Pro-B Natriuret Pep 55 (<125) pg/mL Total Protein (6.3-8.2) g/dL Albumin (3.5-5.0) g/dL Globulin (1.7-4.1) g/dL Albumin/Globulin Ratio (1.0-2.8) Lipase (23-300) U/L Procalcitonin (<0.5) ng/mL Chlamy pneumoniae PCR (Not Detect) Adenovirus (PCR) (Not Detect) B. pertussis DNA (PCR) (Not Detecte) B.parapertussis DNA PCR (Not Detecte) Coronavirus OC43 (PCR) (Not Detect) Coronavirus HKU1 (PCR) (Not Detect) Coronavirus 229E (PCR) (Not Detect) SARS-CoV-2 (PCR) (Not Detecte) Coronavirus NL63 (PCR) (Not Detect) Human Metapneumovir PCR (Not Detect) Influenza Type A (PCR) (Not Detect) Influenza Type B (PCR) (Not Detect) M. pneumoniae (PCR) (Not Detect) Parainfluenza 1 (PCR) (Not Detect) Parainfluenza 2 (PCR) (Not Detect) Parainfluenza 3 (PCR) (Not Detect) Parainfluenza 4 (PCR) (Not Detect) RSV (PCR) (Not Detect) Entero/Rhino (PCR) (Not Detect) Imaging Data Chest x-ray: Radiologist's Impression: PROCEDURE:? XR CHEST 1V ? INDICATIONS:? cough and fever ? TECHNIQUE:? One view of the chest was acquired.? ? COMPARISON:? [facility], CR, XR CHEST 2V, 11/14/2022, 15:24.? [facility], CR, XR CHEST 1V, 04/24/2022, 7:54. ? FINDINGS:? ? Surgical changes and devices:? ACDF. ? Lungs and pleura:? Lungs are clear.? No pleural effusions or pneumothorax.? ? Mediastinum:? Mediastinal contours appear normal.? Heart size is normal.? ? Bones and chest wall:? No suspicious bony lesions.? Overlying soft tissues appear unremarkable.? ? IMPRESSION:? No acute cardiopulmonary abnormality. ? ? ? Dictated by: Dwayne Collins M.D. on 01/22/2023 at 9:19 ? ? ECG Data Interpretation: Sinus rhythm rate 91 here 4 QRS [address] changes similar to previous EKGs MDM Narrative Medical decision making narrative: Patient 57-year-old female history of asthma diabetes and hypertension presenting chronic and fever over last days. She is not hypoxic or tachycardic. X-ray does not show any pneumonia. She does have mild leukocytosis of 11.7 just finished prednisone a few days ago. She is not having any respiratory distress she does not require any further nebulizer she is speaking in full sentences. Electrolytes within normal limits no evidence of BRETT on. BNP is also negative no evidence of congestive heart failure or acute coronary syndrome. EKG is also within normal limits similar to previous. Viral panel is positive for COVID. At this time she does not meet criteria. Discussed supportive care with her only and return precautions. Discharge Plan Departure Patient Disposition: Home Clinical Impression: COVID-19 Instructions: COVID-19 Activity Restrictions/Additional Instructions: *You have been diagnosed with COVID-19 *What to do: At this time rest and hydrate take Tylenol and Motrin as directed as needed for fever. Monitor oxygen levels needed. At this time no need for hospitalization *Continue to take medications as directed *Follow up with your primary care provider in 2-3 days or call [phone] *Return to ER if you should have oxygen 90% or less, increasing chest pain shortness of breath, or any new, worsening or concerning symptoms Prescriptions: No Action benzonatate 100 mg capsule 100 mg PO BID PRN (Reason: cough) Qty: 20 0RF lansoprazole 15 MG capsule,delayed release(DR/EC) 15 mg PO BEDTIME Qty: 0 albuterol sulfate 90 mcg/actuation HFA aerosol inhaler 2 puff Inhalation Q3H PRN (Reason: Wheezing) Qty: 8.5 11RF ipratropium-albuterol 0.5 mg-3 mg(2.5 mg base)/3 mL solution for nebulization 3 ml INHALATION QID PRN (Reason: asthma exac) Qty: 180 5RF fluticasone propion-salmeterol [Advair Diskus] 250-50 mcg/dose blister with device 1 inh INHALATION BID Qty: 60 5RF febuxostat 80 mg tablet 80 mg PO BEDTIME Qty: 90 3RF montelukast 10 mg tablet 10 mg PO DAILY Qty: 90 1RF duloxetine [Cymbalta] 30 mg capsule,delayed release(DR/EC) 90 mg PO DAILY Qty: 270 1RF spironolactone 50 mg tablet 100 mg PO DAILY Qty: 180 1RF furosemide 40 mg tablet 40 mg PO DAILY Qty: 90 1RF albuterol sulfate 1.25 mg/3 mL solution for nebulization 1.25 mg INHALATION Q4H PRN (Reason: asthma exac) Qty: 90 0RF Humalog U-100 Insulin 100 unit/mL Cartridge 200 unit continuous IV infusion DIRECTED PRN (Reason: Hyperglycemia) Rx Instructions: pt has T-slim pump with humalog insulin. pump dosing adjusted based on CBG and PO intake Referrals: Tk Pike MD [Primary Care Provider] - Stand Alone Forms: Patient Portal/API
[2023-01-22 08:44] VITALS: BP 129/83; PULSE 103; RESP 20; TEMP 36.8; O2SAT 96; BMI 36.1
--- NOTE | 2023-01-22 08:46 | DI.RAD.S_ITS ---
PROCEDURE: XR CHEST 1V INDICATIONS: cough and fever TECHNIQUE: One view of the chest was acquired. COMPARISON: [facility], CR, XR CHEST 2V, 11/14/2022, 15:24. [facility], CR, XR CHEST 1V, 04/24/2022, 7:54. FINDINGS: Surgical changes and devices: ACDF. Lungs and pleura: Lungs are clear. No pleural effusions or pneumothorax. Mediastinum: Mediastinal contours appear normal. Heart size is normal. Bones and chest wall: No suspicious bony lesions. Overlying soft tissues appear unremarkable. IMPRESSION: No acute cardiopulmonary abnormality. Dictated by: Dwayne Collins M.D. on 01/22/2023 at 9:19 Approved by: Dwayne Collins M.D. on 01/22/2023 at 9:20
[2023-01-22 08:52] LABS: Add Manual Diff / Slide Review NO; Basophils Absolute Auto 100 /uL (0-100); Basophils Percent Auto 0.8 % (0-2); Eosinophils Absolute Auto 0 /uL (0-450); Eosinophils Percent Auto 0.2 % (2-4); Hematocrit 41.1 % (36-46); Hemoglobin 13.4 g/dL (12.0-16.0); Lymphocytes Absolute Auto 3300 /uL (1100-4500); Lymphocytes Percent Auto 28.4 % (25-40); Mean Corpuscular HGB Conc 32.5 % (30-36); Mean Corpuscular Hemoglobin 27.3 PG (26-34); Mean Corpuscular Volume 84.1 fL (80-100); Monocytes Absolute Auto 800 /uL (0-900); Monocytes Percent Auto 7.3 % (3-14); Neutrophils Absolute Auto 7300 /uL (1500-7000); Neutrophils Percent Auto 63.3 % (50-75); Platelet Count 366 X10^3/uL (150-400); Red Blood Cell Count 4.89 X10^6/uL (4.0-5.2); White Blood Cell Count 11.6 X10^3/uL (4.5-11.0)
[2023-01-22 09:00] VITALS: PULSE 93; O2SAT 99
[2023-01-22 09:05] LABS: Alanine Aminotransferase 34 IU/L (<35); Albumin 4.4 g/dL (3.5-5.0); Albumin Globulin Ratio 1.4 (1.0-2.8); Alkaline Phosphatase 86 U/L (38-126); Aspartate Aminotransferase 38 IU/L (14-36); BUN Creatinine Ratio 16.3 (6-22); Bilirubin Total 0.3 mg/dL (0.2-1.3); Blood Urea Nitrogen 16 mg/dL (7-17); Carbon Dioxide 31 mmol/L (22-32); Chloride 98 mmol/L (98-107); Creatine Kinase 187 U/L (30-135); Estimated Glomerular Filt Rate > 60 mL/min (>60); Globulin 3.2 g/dL (1.7-4.1); Glucose 97 mg/dL (70-100); HEMOLYSIS < 15 (0-50); Lactate (Lactic Acid) 1.6 mmol/L (0.7-2.1); Lipase 78 U/L (23-300); Potassium 3.4 mmol/L (3.4-5.1); Sodium 139 mmol/L (137-145); Total Protein 7.6 g/dL (6.3-8.2)
[2023-01-22 09:14] LABS: NT-proBNP (BNP-Adult 18+) 55 pg/mL (<125)
[2023-01-22 09:16] LABS: Troponin I < 0.012 ng/mL (0.01-0.034)
[2023-01-22 09:20] LABS: Creatine Kinase MB 1.78 ng/mL (<2.37)
[2023-01-22 09:21] LABS: Procalcitonin 0.07 ng/mL (<0.5)
[2023-01-22 09:30] VITALS: PULSE 91; O2SAT 96
[2023-01-22 09:48] LABS: B. parapertussis Not Detected (Not Detecte); Bordetella pertussis Not Detected (Not Detecte); Chlamydophila pneumoniae Not Detected (Not Detect); Coronavirus 229E Not Detected (Not Detect); Coronavirus HKU1 Not Detected (Not Detect); Coronavirus NL 63 Not Detected (Not Detect); Coronavirus OC43 Not Detected (Not Detect); Human Metapneumovirus Not Detected (Not Detect); Human Rhinovirus/Enterovirus Not Detected (Not Detect); Influenza A Not Detected (Not Detect); Influenza B Not Detected (Not Detect); Mycoplasma pneumoniae Not Detected (Not Detect); Parainfluenza Virus 1 Not Detected (Not Detect); Parainfluenza Virus 2 Not Detected (Not Detect); Parainfluenza Virus 3 Not Detected (Not Detect); Parainfluenza Virus 4 Not Detected (Not Detect); Respiratory Syncytial Virus Not Detected (Not Detect); SARS- CoV-2 Detected (Not Detecte)
[2023-01-22 09:50] LABS: Adenovirus Not Detected (Not Detect)
--- NOTE | 2023-01-22 09:56 | PC.NURSE ---
pt was seen by [facility] last week for cold symptoms. Cough, SOB, wheezing. given steroids for 5 days. pt states she did feel better on wednesday but she has since gotten worse. hx of severe obstructive asthma. pt is here to be re-evaluated.
[2023-01-22 10:00] VITALS: PULSE 90; O2SAT 96
[2023-01-22 10:09] VITALS: BP 139/78; PULSE 90; O2SAT 98
== END 2023-01-22 10:20 | disposition home or self-care (01) ==
PROVIDERS: Emergency Provider Emergency Medicine; PCP Student in an Organized Health Care Education/Training Program
DX: U07.1 COVID-19 (principal); R79.89 Other specified abnormal findings of blood chemistry
CPT/HCPCS: 36415; 71045; 80053; 82550; 82553; 83605; 83690; 83880; 84145; 84484; 85025; 87633; 93005; 93010; 99283; 99284

== ENCOUNTER → 2023-02-08 08:39 | Outpatient (CLI) | payer OTHER, SELFPAY ==
[2020-12-12 18:38] VITALS: BMI 35.4
--- NOTE | 2023-02-08 08:40 | DI.MG.S_ITS ---
BILATERAL DIGITAL DIAGNOSTIC MAMMOGRAM 3D/2D: 02/08/2023 CLINICAL: Right axillary lump. Comparison is made to exams dated: 12/11/2021 mammogram - [facility], 02/24/2017 mammogram, and 02/24/2014 mammogram - outside. There are scattered areas of fibroglandular density in both breasts (category b / 25%-50% glandular tissue). No significant masses, calcifications, or other findings are seen in either breast. IMPRESSION: INCOMPLETE: NEEDS ADDITIONAL IMAGING EVALUATION There is no abnormality seen in the right axilla to correspond with the area of clinical concern in the right axilla, however, ultrasound is recommended. Based on the Tyrer Cuzick model (a risk assessment model) the patient's lifetime risk is 5.9% and her 10 year risk is 2.3%. According to the ACR, ACS, and NCCN guidelines, an annual breast MRI exam along with mammogram is recommended if the patient's lifetime risk is 20% or greater. This exam was interpreted at Station ID: [id number]. NOTE: For mammograms, a report in lay terms will be sent to the patient. Approximately 15% of breast malignancies will not be visualized mammographically. In the management of a palpable breast mass, a negative mammogram must not discourage biopsy of a clinically suspicious lesion. Electronically Signed By: Eric Zhang M.D. lc/:02/08/2023 09:43:14 ACR BI-RADS Category 0: Incomplete 3340F
--- NOTE | 2023-02-08 08:40 | DI.US.S_ITS ---
ULTRASOUND OF RIGHT BREAST AND AXILLA: 02/08/2023 CLINICAL: Palpable right axilla lump. Comparison is made to exams dated: 02/08/2023 mammogram, 12/11/2021 mammogram - [facility], 02/24/2017 mammogram, 02/24/2014 mammogram, 12/27/2011 mammogram, and 01/24/2010 mammogram - outside. Real-time ultrasound of the right breast axilla was performed. Noel scale images of the real-time examination were reviewed. No significant abnormalities were seen sonographically in the right axilla. IMPRESSION: NEGATIVE There is no sonographic evidence of malignancy. There is no abnormality seen in the right axilla to correspond with the area of clinical concern in the right axilla. Clinical followup is recommended. Return to annual mammogram screening schedule is recommended. This exam was interpreted at Station ID: [id number]. Electronically Signed By: Eric Zhang M.D. lc/:02/08/2023 09:43:53 letter sent: Clinical Evaluation Ultrasound BI-RADS: 1 Negative
== END ==
PROVIDERS: PCP Student in an Organized Health Care Education/Training Program; Referring Provider Surgery; Visit Provider Surgery
DX: D17.20 Benign lipomatous neoplasm of skin and subcutaneous tissue of unspecified limb; N63.31 Unspecified lump in axillary tail of the right breast; R92.2 Inconclusive mammogram
CPT/HCPCS: 76882; 77066; G0279

== ENCOUNTER → 2023-07-13 14:52 | Outpatient (CLI) | payer OTHER, SELFPAY ==
[2020-12-12 18:38] VITALS: BMI 35.4
[2023-07-13 15:39] LABS: Influenza A - CEPHEID Flu A NEGATIVE (NEGATIVE); Influenza B - CEPHEID Flu B NEGATIVE (NEGATIVE); Respiratory Syncytial Virus Negative (Negative)
[2023-07-13 15:52] LABS: COVID-19 CEPHEID 4-PLEX PCR Negative (Negative)
== END ==
PROVIDERS: PCP Student in an Organized Health Care Education/Training Program; Visit Provider Physician Assistant
DX: J45.901 Unspecified asthma with (acute) exacerbation (principal)
CPT/HCPCS: 0241U

== ENCOUNTER 2023-08-23 15:02 | Emergency (ER) | payer BC, SELFPAY ==
[2020-12-12 18:38] VITALS: BMI 35.4
[2023-08-23] VITALS (7 sets, daily range): BP systolic 120–135; BP diastolic 73–79; PULSE 85–103; RESP 18–20; TEMP 36.7; O2SAT 96–100; BMI 47.1
--- NOTE | 2023-08-23 15:27 | DI.RAD.S_ITS ---
PROCEDURE: XR CHEST 2V INDICATIONS: hx of asthma, wheezing with sputum production TECHNIQUE: 2 views of the chest were acquired. COMPARISON: [facility], CR, XR CHEST 1V, 01/22/2023, 8:46. [facility], CR, XR CHEST 2V, 11/14/2022, 15:24. FINDINGS: Surgical changes and devices: None. Lungs and pleura: Lungs are clear. No pleural effusions or pneumothorax. Mediastinum: Mediastinal contours are normal. Heart size is normal. Bones and chest wall: No suspicious bony abnormalities. Soft tissues appear unremarkable. IMPRESSION: No acute cardiopulmonary abnormality is seen. Dictated by: Baljit Rivas M.D. on 08/23/2023 at 16:00 Approved by: Baljit Rivas M.D. on 08/23/2023 at 16:01
[2023-08-23] MEDS: ALBUTEROL 2.5 MG/3 ML NEB (ADULT) 20 MG INH (15:43)
--- NOTE | 2023-08-23 15:43 | ED.GENADULT ---
HPI - General Adult General Chief complaint: Upper Respiratory Symptoms Stated complaint: chest congestion/cough t-7 Time Seen by Provider: 08/23/23 15:40 Source: patient Mode of arrival: Ambulatory History of Present Illness HPI narrative: 58-year-old female. Does have history of asthma. Has albuterol inhalers and nebulizers at home. Approximately 1 [place] when [place] started to have cough cold congestion and wheezing. She has been using her inhalers at home without any improvement. Also has had fevers at home. Nonproductive cough. Chest discomfort with the coughing. Related Data Home Medications Medication Instructions Recorded Confirmed lansoprazole 15 mg capsule,delayed 15 mg PO BEDTIME ##0 11/21/16 08/23/23 release insulin lispro 100 unit/mL 200 unit continuous IV infusion 12/12/20 08/23/23 subcutaneous cartridge (Humalog DIRECTED PRN Hyperglycemia U-100 Insulin) Previous Rx's Medication Instructions Recorded albuterol sulfate 1.25 mg/3 mL 1.25 mg (3 mL) inhalation Q4H PRN 12/01/18 solution for nebulization asthma exac #90 mL febuxostat 80 mg tablet 80 mg PO BEDTIME #90 tabs 05/29/22 nystatin 100,000 unit/gram topical 1 applic topical TID #30 grams 02/01/23 powder ipratropium 0.5 mg-albuterol 3 mg 3 ml inhalation QID PRN asthma 03/01/23 (2.5 mg base)/3 mL nebulization exac #180 mL soln spironolactone 50 mg tablet 100 mg (2 x 50 mg) PO DAILY #180 03/26/23 tabs alprazolam 0.5 mg tablet (Xanax) 0.5 mg PO TID PRN anxiety #30 tabs 07/01/23 buspirone 15 mg tablet 15 mg PO BID #120 tabs 07/01/23 prednisone 20 mg tablet 40 mg (2 x 20 mg) PO DAILY #30 tabs 07/01/23 albuterol sulfate 90 mcg/actuation 2 puff inhalation Q4-6H PRN 07/29/23 aerosol inhaler Wheezing #8.5 grams duloxetine 30 mg capsule,delayed 120 mg (4 x 30 mg) PO DAILY #360 08/19/23 release (Cymbalta) caps fluticasone 250 mcg-salmeterol 50 1 inh inhalation BID #60 ea 08/19/23 mcg/dose blistr powdr for inhalation (Advair Diskus) furosemide 40 mg tablet 40 mg PO DAILY #90 tabs 08/19/23 montelukast 10 mg tablet 10 mg PO DAILY #90 tabs 08/19/23 prednisone 20 mg tablet 20 mg PO DAILY 6 days #6 tabs 08/23/23 Allergies Allergy/AdvReac Type Severity Reaction Status Date / Time levofloxacin [From LEVAQUIN] Allergy Intermediate RASH Verified 08/23/23 15:15 aspirin [ASPIRIN] Allergy Unknown Diaphoresis Verified 08/23/23 15:15 azithromycin [AZITHROMYCIN] Allergy Unknown Wheezing Verified 08/23/23 15:15 diclofenac [DICLOFENAC] Allergy Unknown Rash Verified 08/23/23 15:15 tramadol [TRAMADOL] Allergy Unknown Altered Verified 08/23/23 15:15 mental status [id number] Reductase AdvReac Intermediate muscle pain Verified 08/23/23 15:15 Inhibitor Review of Systems Constitutional Constitutional: Reports system reviewed and no additional complaints, except as documented ENT Ears, Nose, Mouth, and Throat: Reports system reviewed and no additional complaints, except as documented Cardiovascular Cardiovascular: Reports system reviewed and no additional complaints, except as documented Respiratory Respiratory: Reports system reviewed and no additional complaints, except as documented Integumentary/Breasts Skin/Breast: Reports system reviewed and no additional complaints, except as documented Neurologic Neurologic: Reports system reviewed and no additional complaints, except as documented Hematologic/Lymphatic On Anticoagulants: No Patient History Medical History Cervical vertebral fusion Statin intolerance Peripheral neuropathy Retinopathy Hearing loss Eczema (~1962) Allergies (~1964) Anxiety and depression (~1984) Headache (~1974) Cubital tunnel syndrome Chronic back pain Carpal tunnel syndrome (~2014) Mumps (~1967) Chicken pox (~1969) Irritable bowel syndrome (~1989) Degenerative disc disease, lumbar Cubital tunnel syndrome of both upper extremities Hyperaldosteronism NAFLD (nonalcoholic fatty liver disease) GERD (gastroesophageal reflux disease) (~1989) CKD (chronic kidney disease) (~2018) Gout HTN (hypertension) (~1983) Type 2 diabetes mellitus (~2009) Asthma (~1962) Surgical History Anesthesia H/O: hysterectomy (~2006) History of cholecystectomy (~2013) History of microdiscectomy (~1999) Previous section S/P lumbar laminectomy (~1990) Status post cervical discectomy Family History Mother History of heart disease Mental health problem COPD (chronic obstructive pulmonary disease) History of emphysema Sister Breast cancer Social History household members: spouse Smoking Status: Never smoker alcohol intake: former Smoking Status: Never smoker alcohol intake frequency: other Substance Use Type: does not use Exam Initial Vital Signs Initial Vital Signs: Vital Signs Temperature 98.1 F 08/23/23 15:15 Pulse Rate 91 H 08/23/23 15:15 Respiratory Rate 18 08/23/23 15:15 Blood Pressure 135/79 08/23/23 15:15 Pulse Oximetry 97 08/23/23 15:15 Oxygen Delivery Method Room Air 08/23/23 15:15 Const General: cooperative, comfortable and No ill appearing HENAZ Head: normal to inspection Resp Effort & Inspection: labored, no respiratory distress and tachypneic Auscultation: rhonchi and wheezes Cardio Rate: regular rate Rhythm: regular rhythm Skin General: no rashes or lesions noted Neuro General: patient alert, patient awake, patient oriented x3 and moves all extremities Extrem General: normal to inspection and capillary refill normal Course Orders Ordered: ED Orders 08/23/23 15:27 XR chest 2V Stat 08/23/23 15:35 COVID19 -Nasal RAPID Stat Discontinued Medications Albuterol (Albuterol 2.5 Mg/3 Ml Neb (Adult)) 20 mg INH NOW ONE Stop: 08/23/23 15:41 Last Admin: 08/23/23 15:43 Dose: 20 mg Documented By: JOSEF Prednisone (Prednisone 20 Mg Tablet) 40 mg PO NOW ONE Stop: 08/23/23 15:43 Last Admin: 08/23/23 15:51 Dose: 40 mg Documented By: DAGOBERTO Vital Signs Vital signs: Vital Signs - 8 hr 08/23/23 15:15 08/23/23 15:44 08/23/23 16:19 Temperature 98.1 F Pulse Rate 91 H 91 H 85 Respiratory Rate 18 20 Blood Pressure 135/79 Pulse Oximetry 97 99 100 Oxygen Delivery Method Room Air Room Air Oxygen Flow Rate 0 Fraction of Inspired Oxygen 21 08/23/23 16:30 08/23/23 17:00 08/23/23 17:30 Temperature Pulse Rate 87 97 H 102 H Respiratory Rate Blood Pressure Pulse Oximetry 100 100 100 Oxygen Delivery Method Oxygen Flow Rate Fraction of Inspired Oxygen 08/23/23 17:35 08/23/23 17:35 Temperature Pulse Rate 103 H Respiratory Rate Blood Pressure 120/73 Pulse Oximetry 96 Oxygen Delivery Method Oxygen Flow Rate Fraction of Inspired Oxygen Medical Decision Making Lab Data Lab results reviewed: Yes I reviewed the patient's lab results. Labs: Lab Results 08/23/23 Range/Units 15:35 SARS-CoV-2 (PCR) Negative (Negative) Imaging Data Chest x-ray: Radiologist's Impression: PROCEDURE: XR CHEST 2V INDICATIONS: hx of asthma, wheezing with sputum production TECHNIQUE: 2 views of the chest were acquired. COMPARISON: [facility], , XR CHEST 1V, 01/22/2023, 8:46. [facility], , XR CHEST 2V, 11/14/2022, 15:24. FINDINGS: Surgical changes and devices: None. Lungs and pleura: Lungs are clear. No pleural effusions or pneumothorax. Mediastinum: Mediastinal contours are normal. Heart size is normal. Bones and chest wall: No suspicious bony abnormalities. Soft tissues appear unremarkable. IMPRESSION: No acute cardiopulmonary abnormality is seen. MDM Narrative Medical decision making narrative: COVID negative. Chest x-ray is unremarkable. She did have wheezing upon arrival and this did improve after a continuous nebulizer treatment. She was still having some wheezing but she felt much better. There was no indication for antibiotics. She was given a dose of steroids. Will discharge home with steroids. She states she feels well enough to go home and will return if any of her symptoms get worse. She was given return precautions. She expressed understanding agreement with plan. Discharge Plan Departure Patient Disposition: Home Clinical Impression: Asthma Instructions: Asthma -- Adult Activity Restrictions/Additional Instructions: Continue to take all of your medications as directed. Your next dose of steroids will be tomorrow Wednesday08/24/2023. A prescription was sent to [facility]. Contact your primary provider for follow-up. Return to the emergency department for new or worsening symptoms. Prescriptions: New prednisone 20 mg tablet 20 mg PO DAILY 6 Days Qty: 6 0RF No Action lansoprazole 15 MG capsule,delayed release(DR/EC) 15 mg PO BEDTIME Qty: 0 febuxostat 80 mg tablet 80 mg PO BEDTIME Qty: 90 3RF ipratropium-albuterol 0.5 mg-3 mg(2.5 mg base)/3 mL solution for nebulization 3 ml INHALATION QID PRN (Reason: asthma exac) Qty: 180 5RF spironolactone 50 mg tablet 100 mg PO DAILY Qty: 180 1RF albuterol sulfate 90 mcg/actuation HFA aerosol inhaler 2 puff Inhalation Q4-6H PRN (Reason: Wheezing) Qty: 8.5 6RF fluticasone propion-salmeterol [Advair Diskus] 250-50 mcg/dose blister with device 1 inh INHALATION BID Qty: 60 1RF Rx Instructions: APPT DUE WITH NEW PCP PRIOR TO END OF RX/FUTURE FILLS. PLEASE CALL CLINIC TO SET UP. THANK YOU 08/19/23. furosemide 40 mg tablet 40 mg PO DAILY Qty: 90 0RF Rx Instructions: APPT DUE WITH NEW PCP PRIOR TO END OF RX/FUTURE FILLS. PLEASE CALL CLINIC TO SET UP. THANK YOU 08/19/23. duloxetine [Cymbalta] 30 mg capsule,delayed release(DR/EC) 120 mg PO DAILY Qty: 360 0RF Rx Instructions: APPT DUE WITH NEW PCP PRIOR TO END OF RX/FUTURE FILLS. PLEASE CALL CLINIC TO SET UP. THANK YOU 08/19/23. montelukast 10 mg tablet 10 mg PO DAILY Qty: 90 0RF Rx Instructions: APPT DUE WITH NEW PCP PRIOR TO END OF RX/FUTURE FILLS. PLEASE CALL CLINIC TO SET UP. THANK YOU 08/19/23. nystatin 100,000 unit/gram powder 1 applic topical TID Qty: 30 2RF Rx Instructions: Apply to yeast infection 3x/day for 10 days or until resolved prednisone 20 mg tablet 40 mg PO DAILY Qty: 30 0RF Rx Instructions: 1-2 tabs once daily for 5-7 days without taper needed buspirone 15 mg tablet 15 mg PO BID Qty: 120 2RF Rx Instructions: trial 1 tab once daily then increase to 1 tab twice daily if tolerated and continue at that dose alprazolam [Xanax] 0.5 mg tablet 0.5 mg PO TID PRN (Reason: anxiety) Qty: 30 0RF Rx Instructions: 1/2 to 1 tab up to 3 times daily as needed for anxiety. watch for sedation possibility. albuterol sulfate 1.25 mg/3 mL solution for nebulization 1.25 mg INHALATION Q4H PRN (Reason: asthma exac) Qty: 90 0RF Humalog U-100 Insulin 100 unit/mL Cartridge 200 unit continuous IV infusion DIRECTED PRN (Reason: Hyperglycemia) Rx Instructions: pt has T-slim pump with humalog insulin. pump dosing adjusted based on CBG and PO intake Referrals: Tk Pike MD [Primary Care Provider] - Stand Alone Forms: Patient Portal/API
[2023-08-23] MEDS: predniSONE 20 MG TABLET 40 MG PO (15:51)
[2023-08-23 16:02] LABS: COVID19 -Nasal RAPID Negative (Negative)
== END 2023-08-23 18:00 | disposition home or self-care (01) ==
PROVIDERS: Emergency Provider Emergency Medicine; PCP Student in an Organized Health Care Education/Training Program
DX: J45.909 Unspecified asthma, uncomplicated (principal); Z20.822 Contact with and (suspected) exposure to COVID-19
CPT/HCPCS: 71046; 87635; 94640; 99284; C9803; J7613

== ENCOUNTER → 2023-12-28 07:05 | Outpatient (CLI) | payer BC, SELFPAY ==
[2020-12-12 18:38] VITALS: BMI 35.4
[2023-12-28 08:27] LABS: Alanine Aminotransferase 29 IU/L (<35); Albumin 4.3 g/dL (3.5-5.0); Albumin Globulin Ratio 1.7 (1.0-2.8); Alkaline Phosphatase 90 U/L (38-126); Aspartate Aminotransferase 29 IU/L (14-36); BUN Creatinine Ratio 15.4 (6-22); Bilirubin Total 0.4 mg/dL (0.2-1.3); Blood Urea Nitrogen 16 mg/dL (7-17); Calcium 9.6 mg/dL (8.4-10.2); Carbon Dioxide 28 mmol/L (22-32); Chloride 101 mmol/L (98-107); Cholesterol 231 mg/dL (140-199); Estimated Glomerular Filt Rate > 60 mL/min (>60); Globulin 2.6 g/dL (1.7-4.1); Glucose 135 mg/dL (80-110); HDL Cholesterol 37 mg/dL (40-60); HEMOLYSIS < 15 (0-50); LDL Cholesterol Calculated 161 mg/dL (<100); Potassium 4.6 mmol/L (3.4-5.1); Sodium 139 mmol/L (137-145); Total Protein 6.9 g/dL (6.3-8.2); Triglycerides 167 mg/dL (35-150); Uric Acid 8.1 mg/dL (2.5-6.2)
[2023-12-28 08:34] LABS: Vitamin D 25 Hydroxy (D3) 31.4 ng/mL (30.0-100.0)
[2023-12-28 08:37] LABS: Add Manual Diff / Slide Review NO; Basophils Absolute Auto 0 /uL (0-100); Basophils Percent Auto 0.6 % (0-2); Eosinophils Absolute Auto 200 /uL (0-450); Eosinophils Percent Auto 2.4 % (2-4); Hematocrit 39.8 % (36-46); Hemoglobin 13.2 g/dL (12.0-16.0); Lymphocytes Absolute Auto 3000 /uL (1100-4500); Lymphocytes Percent Auto 35.8 % (25-40); Mean Corpuscular HGB Conc 33.2 % (30-36); Mean Corpuscular Volume 84.5 fL (80-100); Monocytes Absolute Auto 500 /uL (0-900); Monocytes Percent Auto 5.8 % (3-14); Neutrophils Absolute Auto 4600 /uL (1500-7000); Neutrophils Percent Auto 55.4 % (50-75); Platelet Count 326 X10^3/uL (150-400); Red Blood Cell Count 4.71 X10^6/uL (4.0-5.2); Red Cell Distribution Width 13.6 % (11.6-14.8); White Blood Cell Count 8.3 X10^3/uL (4.5-11.0)
[2023-12-28 08:48] LABS: TSH w/ Reflex to FT4 1.82 uIU/mL (0.47-4.68)
[2024-01-02 08:02] LABS: Labcorp Hemoglobin (Hb) A1c 7.4 % (4.8-5.6)
== END ==
PROVIDERS: PCP Family Medicine; Referring Provider Family Medicine; Visit Provider Family Medicine
DX: R53.83 Other fatigue (principal); N18.9 Chronic kidney disease, unspecified; J45.909 Unspecified asthma, uncomplicated; I10 Essential (primary) hypertension; M10.9 Gout, unspecified; E11.9 Type 2 diabetes mellitus without complications
CPT/HCPCS: 36415; 80053; 80061; 82306; 83036; 84443; 84550; 85025

== ENCOUNTER → 2024-01-06 10:02 | Outpatient (CLI) | payer BC, SELFPAY ==
[2020-12-12 18:38] VITALS: BMI 35.4
== END ==
PROVIDERS: PCP Family Medicine; Visit Provider Physician Assistant
DX: J02.9 Acute pharyngitis, unspecified (principal)
CPT/HCPCS: 87070

== ENCOUNTER → 2024-01-11 11:41 | Outpatient (CLI) | payer BC, SELFPAY ==
[2020-12-12 18:38] VITALS: BMI 35.4
--- NOTE | 2024-01-11 12:17 | DI.RAD.S_ITS ---
PROCEDURE: XR CHEST 2V INDICATIONS: Cough times 10 days, wheezing TECHNIQUE: 2 views of the chest were acquired. COMPARISON: [facility], , XR CHEST 2V, 08/23/2023, 15:39. FINDINGS: Surgical changes and devices: None. Lungs and pleura: Lungs are clear. No pleural effusions or pneumothorax. Mediastinum: Mediastinal contours are normal. Heart size is normal. Bones and chest wall: No suspicious bony abnormalities. Soft tissues appear unremarkable. IMPRESSION: No acute cardiopulmonary abnormality is seen. Dictated by: Cassius Hoang M.D. on 01/11/2024 at 15:50 Approved by: Cassius Hoang M.D. on 01/11/2024 at 15:51
[2024-01-11 12:54] LABS: Influenza A - CEPHEID Flu A NEGATIVE (NEGATIVE); Influenza B - CEPHEID Flu B NEGATIVE (NEGATIVE); Respiratory Syncytial Virus Negative (Negative)
[2024-01-11 13:11] LABS: COVID-19 CEPHEID 4-PLEX PCR Negative (Negative)
== END ==
PROVIDERS: PCP Family Medicine; Referring Provider Physician Assistant; Visit Provider Physician Assistant
DX: R05.1 Acute cough (principal); J06.9 Acute upper respiratory infection, unspecified
CPT/HCPCS: 0241U; 71046

== ENCOUNTER → 2024-05-23 14:30 | Outpatient (CLI) | payer OTHER, SELFPAY ==
[2020-12-12 18:38] VITALS: BMI 35.4
== END ==
PROVIDERS: PCP Family Medicine; Referring Provider Family Medicine; Visit Provider Family Medicine
DX: J45.909 Unspecified asthma, uncomplicated (principal)
CPT/HCPCS: 94060; 94726; 94729

== ENCOUNTER → 2024-06-05 07:12 | Outpatient (CLI) | payer OTHER, SELFPAY ==
[2020-12-12 18:38] VITALS: BMI 35.4
[2024-06-05 08:21] LABS: Hemoglobin A1C% w Est Avg Glu 7.3 % (4.0-6.0)
[2024-06-05 08:34] LABS: Alanine Aminotransferase 26 IU/L (<35); Albumin 4.5 g/dL (3.5-5.0); Alkaline Phosphatase 102 U/L (38-126); Aspartate Aminotransferase 25 IU/L (14-36); BUN Creatinine Ratio 17.2 (6-22); Bilirubin Total 0.4 mg/dL (0.2-1.3); Blood Urea Nitrogen 20 mg/dL (7-17); Calcium 10.2 mg/dL (8.4-10.2); Carbon Dioxide 29 mmol/L (22-32); Chloride 102 mmol/L (98-107); Cholesterol 231 mg/dL (140-199); Estimated Glomerular Filt Rate 54 mL/min (>60); Globulin 2.3 g/dL (1.7-4.1); Glucose 170 mg/dL (80-110); HDL Cholesterol 36 mg/dL (40-60); HEMOLYSIS < 15 (0-50); LDL Cholesterol Calculated 149 mg/dL (<100); Potassium 4.7 mmol/L (3.4-5.1); Sodium 139 mmol/L (137-145); Total Protein 6.8 g/dL (6.3-8.2); Triglycerides 230 mg/dL (35-150)
[2024-06-05 09:00] LABS: Cortisol AM (Before 10AM) 11.2 ug/dL (4.46-22.7)
[2024-06-05 11:52] LABS: Creatinine Urine Random 111.78 mg/dL
[2024-06-05 11:57] LABS: Microalbumin Urine Random < 0.6 mg/dL (0-1.6)
[2024-06-05 15:08] LABS: Collection Time Urine 24 Hours; Microalbumin 24 Hour Urine 14.1 mg/day (<30); Microalbumin Excretion Rate Ur 9.8 ug/min (<20); Microalbumin Urine Random < 0.6 mg/dL (0-1.6); Total Volume Urine 2350 mL
== END ==
PROVIDERS: PCP Family Medicine; Referring Provider Nurse Practitioner; Visit Provider Nurse Practitioner
DX: E11.65 Type 2 diabetes mellitus with hyperglycemia (principal); E11.22 Type 2 diabetes mellitus with diabetic chronic kidney disease; E78.2 Mixed hyperlipidemia; R53.83 Other fatigue; J45.909 Unspecified asthma, uncomplicated; Z79.51 Long term (current) use of inhaled steroids; E11.9 Type 2 diabetes mellitus without complications; E24.2 Drug-induced Cushing's syndrome; N18.9 Chronic kidney disease, unspecified; I10 Essential (primary) hypertension; M10.9 Gout, unspecified
CPT/HCPCS: 36415; 80053; 80061; 82043; 82530; 82533; 82570; 83036

== ENCOUNTER → 2024-09-15 15:06 | Outpatient (CLI) | payer OTHER, SELFPAY ==
[2020-12-12 18:38] VITALS: BMI 35.4
[2024-09-15 15:56] LABS: Influenza A - CEPHEID Flu A NEGATIVE (NEGATIVE); Influenza B - CEPHEID Flu B NEGATIVE (NEGATIVE); Respiratory Syncytial Virus Negative (Negative)
[2024-09-15 16:04] LABS: COVID-19 CEPHEID 4-PLEX PCR Negative (Negative)
== END ==
PROVIDERS: PCP Family Medicine; Referring Provider Physician Assistant Medical; Visit Provider Physician Assistant Medical
DX: R05.1 Acute cough (principal); J06.9 Acute upper respiratory infection, unspecified
CPT/HCPCS: 0241U

== ENCOUNTER → 2024-11-06 12:09 | Outpatient (CLI) | payer OTHER, SELFPAY ==
[2020-12-12 18:38] VITALS: BMI 35.4
== END ==
PROVIDERS: PCP Family Medicine; Referring Provider Internal Medicine; Visit Provider Internal Medicine
DX: Z23 Encounter for immunization (principal)
CPT/HCPCS: 90471; 90656

== ENCOUNTER → 2024-12-01 10:33 | Outpatient (CLI) | payer OTHER, SELFPAY ==
[2020-12-12 18:38] VITALS: BMI 35.4
[2024-12-01 11:12] LABS: Add Manual Diff / Slide Review NO; Basophils Absolute Auto 100 /uL (0-100); Basophils Percent Auto 0.5 % (0-2); Eosinophils Absolute Auto 200 /uL (0-450); Eosinophils Percent Auto 1.8 % (2-4); Hematocrit 42.1 % (36-46); Hemoglobin 13.8 g/dL (12.0-16.0); Lymphocytes Absolute Auto 3500 /uL (1100-4500); Lymphocytes Percent Auto 33.1 % (25-40); Mean Corpuscular HGB Conc 32.9 % (30-36); Mean Corpuscular Hemoglobin 28.5 PG (26-34); Mean Corpuscular Volume 86.6 fL (80-100); Monocytes Absolute Auto 600 /uL (0-900); Monocytes Percent Auto 5.3 % (3-14); Neutrophils Absolute Auto 6200 /uL (1500-7000); Neutrophils Percent Auto 59.3 % (50-75); Platelet Count 335 X10^3/uL (150-400); Red Blood Cell Count 4.87 X10^6/uL (4.0-5.2); Red Cell Distribution Width 13.5 % (11.6-14.8); White Blood Cell Count 10.4 X10^3/uL (4.5-11.0)
[2024-12-01 11:21] LABS: Hemoglobin A1C% w Est Avg Glu 9.5 % (4.0-6.0)
[2024-12-01 12:04] LABS: Alanine Aminotransferase 38 IU/L (<35); Alkaline Phosphatase 121 U/L (38-126); Aspartate Aminotransferase 31 IU/L (14-36); BUN Creatinine Ratio 15.8 (6-22); Bilirubin Total 0.4 mg/dL (0.2-1.3); Blood Urea Nitrogen 18 mg/dL (7-17); Calcium 10.5 mg/dL (8.4-10.2); Carbon Dioxide 30 mmol/L (22-32); Chloride 96 mmol/L (98-107); Estimated Glomerular Filt Rate 55 mL/min (>60); Globulin 2.5 g/dL (1.7-4.1); Glucose 319 mg/dL (80-110); HEMOLYSIS < 15 (0-50); Potassium 4.5 mmol/L (3.4-5.1); Sodium 135 mmol/L (137-145); Total Protein 7.5 g/dL (6.3-8.2)
== END ==
PROVIDERS: PCP Family Medicine; Referring Provider Family Medicine; Visit Provider Family Medicine
DX: R51.9 Headache, unspecified (principal); E11.9 Type 2 diabetes mellitus without complications; R81 Glycosuria; R53.83 Other fatigue; N18.9 Chronic kidney disease, unspecified
CPT/HCPCS: 36415; 80053; 83036; 83930; 85025

== ENCOUNTER 2024-12-02 12:18 | Emergency (ER) | payer OTHER, SELFPAY ==
[2020-12-12 18:38] VITALS: BMI 35.4
[2024-12-02] VITALS (8 sets, daily range): BP systolic 148–171; BP diastolic 68–89; PULSE 78–84; RESP 9–24; TEMP 36.9; O2SAT 95–98; BMI 35.3
--- NOTE | 2024-12-02 12:39 | EKG_ITS ---
[address] [address] Test Date: 2024-12-02 Pat Name: Daisy Morrow Department: Room: Gender: Female Exhauster: : 1965 Requested By: Order Number: [id number] Reading MD: Darwin Odonnell MD Measurements Intervals [place] Rate: 84 P: 62 TX: 158 QRS: 17 QRSD: 102 T: 72 QT: 352 QTc: 415 Interpretive Statements Normal sinus rhythm Nonspecific T wave abnormality Electronically Signed On 12-04-2024 13:38:01 PST by Darwin Odonnell MD
--- NOTE | 2024-12-02 12:51 | DI.RAD.S_ITS ---
PROCEDURE: XR CHEST 1V INDICATIONS: abdominal pain TECHNIQUE: One view of the chest was acquired. COMPARISON: [facility], CR, XR CHEST 2V, 01/11/2024, 12:26. [facility], CR, XR CHEST 2V, 08/23/2023, 15:39. FINDINGS: Surgical changes and devices: None. Lungs and pleura: Lungs are clear. No pleural effusions or pneumothorax. Mediastinum: Mediastinal contours appear normal. Heart size is normal. Bones and chest wall: No suspicious bony lesions. Overlying soft tissues appear unremarkable. IMPRESSION: No acute cardiopulmonary abnormality is seen. Dictated by: Chela Vegas M.D. on 12/02/2024 at 12:27 Approved by: Chela Vegas M.D. on 12/02/2024 at 12:28
[2024-12-02] MEDS: SODIUM CHLORIDE 0.9% 1,000 ML 1000 ML IV (12:55)
[2024-12-02 13:03] LABS: Add Manual Diff / Slide Review NO; Basophils Absolute Auto 100 /uL (0-100); Basophils Percent Auto 1.1 % (0-2); Eosinophils Absolute Auto 200 /uL (0-450); Eosinophils Percent Auto 1.8 % (2-4); Hematocrit 41.8 % (36-46); Hemoglobin 14.1 g/dL (12.0-16.0); Lymphocytes Absolute Auto 3600 /uL (1100-4500); Lymphocytes Percent Auto 36.4 % (25-40); Mean Corpuscular HGB Conc 33.7 % (30-36); Mean Corpuscular Hemoglobin 28.7 PG (26-34); Mean Corpuscular Volume 85.2 fL (80-100); Monocytes Absolute Auto 600 /uL (0-900); Monocytes Percent Auto 5.7 % (3-14); Neutrophils Absolute Auto 5500 /uL (1500-7000); Platelet Count 315 X10^3/uL (150-400); Red Blood Cell Count 4.91 X10^6/uL (4.0-5.2); Red Cell Distribution Width 13.4 % (11.6-14.8)
[2024-12-02 13:05] LABS: HEMOLYSIS < 15 (0-50)
[2024-12-02 13:11] LABS: Alanine Aminotransferase 40 IU/L (<35); Albumin 4.9 g/dL (3.5-5.0); Albumin Globulin Ratio 1.8 (1.0-2.8); Alkaline Phosphatase 111 U/L (38-126); Aspartate Aminotransferase 36 IU/L (14-36); BUN Creatinine Ratio 19.2 (6-22); Bilirubin Total 0.5 mg/dL (0.2-1.3); Blood Urea Nitrogen 19 mg/dL (7-17); Calcium 9.8 mg/dL (8.4-10.2); Carbon Dioxide 29 mmol/L (22-32); Chloride 96 mmol/L (98-107); Estimated Glomerular Filt Rate > 60 mL/min (>60); Globulin 2.8 g/dL (1.7-4.1); Glucose 242 mg/dL (80-110); Lipase 93 U/L (23-300); Magnesium 1.8 mg/dL (1.6-2.3); Potassium 3.6 mmol/L (3.4-5.1); Sodium 134 mmol/L (137-145); Total Protein 7.7 g/dL (6.3-8.2)
[2024-12-02 13:12] LABS: Lactate (Lactic Acid) 2.4 mmol/L (0.7-2.1)
[2024-12-02 13:23] LABS: Troponin I < 0.012 ng/mL (0.01-0.034)
--- NOTE | 2024-12-02 13:35 | ED_ITS ---
HPI - General Adult General Chief complaint: Diabetic Problem Stated complaint: Blood sugar high. Over 300 can't bring down. Time Seen by Provider: 12/02/24 12:37 Source: patient Mode of arrival: Ambulatory History of Present Illness HPI narrative: [age] year old woman with a history of diabetes on an insulin pump with continuous glucose monitoring, hypertension, chronic kidney disease reflux, chronic back pain peripheral neuropathy who presents complaining that her blood sugars have been above 400 for the past 4 days. She has increased her basal use of insulin and insulin boluses, she has been trying to increase water intake, she has been eating essentially no carbohydrates and numbers are still elevated. She does not complain of a fever or feel acutely ill. She noticed with onset of symptoms she had significant diarrhea for a couple of days has since resolved. Chest or palpitations Related Data Home Medications Medication Instructions Recorded Confirmed lansoprazole 15 mg capsule,delayed 15 mg PO BEDTIME ##0 11/21/16 12/01/24 release blood-glucose sensor (Patientco G7 #1 ea 06/29/24 12/01/24 Sensor device) insulin aspart U-100 100 unit/mL SUBCUT 09/15/24 12/01/24 subcutaneous solution (Novolog U-100 Insulin aspart) Previous Rx's Medication Instructions Recorded albuterol sulfate 1.25 mg/3 mL 1.25 mg (3 mL) inhalation Q4H PRN 12/01/18 solution for nebulization asthma exac #90 mL ipratropium 0.5 mg-albuterol 3 mg 3 ml inhalation QID PRN asthma 03/01/23 (2.5 mg base)/3 mL nebulization exac #180 mL soln montelukast 10 mg tablet 10 mg PO DAILY #90 tabs 04/19/24 triamcinolone acetonide 0.1 % 1 applic topical DAILY #30 grams 05/12/24 topical cream albuterol sulfate 90 mcg/actuation 2 puff inhalation Q4-6H PRN 07/04/24 aerosol inhaler Wheezing #8.5 grams fluticasone 250 mcg-salmeterol 50 1 inh inhalation BID #60 ea 07/13/24 mcg/dose blistr powdr for inhalation (Advair Diskus) duloxetine 30 mg capsule,delayed 120 mg (4 x 30 mg) PO DAILY #360 08/01/24 release caps furosemide 40 mg tablet 40 mg PO DAILY #90 tabs 08/01/24 spironolactone 50 mg tablet 100 mg (2 x 50 mg) PO DAILY #180 08/01/24 tabs prednisone 20 mg tablet 40 mg (2 x 20 mg) PO DAILY #10 tabs 09/22/24 Allergies Allergy/AdvReac Type Severity Reaction Status Date / Time levofloxacin [From LEVAQUIN] Allergy Intermediate RASH Verified 12/02/24 12:32 aspirin [ASPIRIN] Allergy Unknown Diaphoresis Verified 12/02/24 12:32 azithromycin [AZITHROMYCIN] Allergy Unknown Wheezing Verified 12/02/24 12:32 diclofenac [DICLOFENAC] Allergy Unknown Rash Verified 12/02/24 12:32 tramadol [TRAMADOL] Allergy Unknown Altered Verified 12/02/24 12:32 mental status [id number] Reductase AdvReac Intermediate muscle pain Verified 12/02/24 12:32 Inhibitor Review of Systems Review of Systems Narrative: Pertinent positive and negative findings as per HPI Patient History Medical History Hearing loss Cervical vertebral fusion Statin intolerance Peripheral neuropathy Retinopathy Eczema (~1962) Allergies (~1964) Anxiety and depression (~1984) Headache (~1974) Cubital tunnel syndrome Chronic back pain Carpal tunnel syndrome (~2014) Mumps (~1967) Chicken pox (~1969) Irritable bowel syndrome (~1989) Degenerative disc disease, lumbar Cubital tunnel syndrome of both upper extremities Hyperaldosteronism NAFLD (nonalcoholic fatty liver disease) GERD (gastroesophageal reflux disease) (~1989) CKD (chronic kidney disease) (~2017) Gout HTN (hypertension) (~1983) Type 2 diabetes mellitus (~2009) Asthma (~1962) Surgical History Status post cervical discectomy Anesthesia History of microdiscectomy (~1999) S/P lumbar laminectomy (~1990) History of cholecystectomy (~2013) H/O: hysterectomy (~2006) Previous section Family History Mother History of heart disease Mental health problem COPD (chronic obstructive pulmonary disease) History of emphysema Sister Breast cancer Social History household members: spouse Smoking Status: Never smoker alcohol intake: former Smoking Status: Never smoker alcohol intake frequency: other Exam Initial Vital Signs Initial Vital Signs: Vital Signs Temperature 98.4 F 12/02/24 12:22 Pulse Rate 78 12/02/24 12:22 Respiratory Rate 18 12/02/24 12:22 Blood Pressure 163/78 H 12/02/24 12:22 Pulse Oximetry 98 12/02/24 12:22 Oxygen Delivery Method Room Air 12/02/24 12:22 General: Healthy appearing, in no acute distress. Able to give a complete and coherent history. Well-nourished well-developed HEENT: Moist mucous membranes, normal sclera with reactive pupils, Neck: No JVD, supple Respiratory: Lungs are clear to auscultation, no wheezing no rales no rhonchi. Full and symmetrical air movement Cardiac: Regular rate and rhythm no murmurs no bruits Abdomen: Soft, nontender, no flank pain Skin: Warm and dry, no rashes Neurologic: Grossly neurologically intact with no obvious asymmetries or abnormalities Extremities: No trauma, well perfused Psych: Cooperative, appropriate insight and affect Course Orders Ordered: ED Orders 12/02/24 12:32 EKG-12 Lead Stat 12/02/24 12:45 Complete Blood Count AUTO DIFF Stat Comprehensive Metabolic Panel Stat Ketones (Beta-Hydroxybutyrate) Stat Lactate (Lactic Acid) Stat Lipase Stat Magnesium Stat Troponin I Stat 12/02/24 12:51 XR chest 1V Stat Urinalysis and Microscopic Stat Discontinued Medications Sodium Chloride (Normal Saline 0.9%) 1,000 mls @ 1,000 mls/hr IV BOLUS ONE Stop: 12/02/24 13:50 Last Admin: 12/02/24 12:55 Dose: 1,000 mls/hr Documented By: RB Vital Signs Vital signs: Vital Signs - 8 hr 12/02/24 12:22 12/02/24 12:53 Temperature 98.4 F Pulse Rate 78 81 Respiratory Rate 18 16 Blood Pressure 163/78 H Pulse Oximetry 98 Oxygen Delivery Method Room Air Medical Decision Making Lab Data 12/02/24 12:45 12/02/24 12:45 Labs: Lab Results 12/02/24 Range/Units 12:45 WBC 10.0 (4.5-11.0) X10^3/uL RBC 4.91 (4.0-5.2) X10^6/uL Hgb 14.1 (12.0-16.0) g/dL Hct 41.8 (36-46) % MCV 85.2 (80-100) fL MCH 28.7 (26-34) PG MCHC 33.7 (30-36) % RDW 13.4 (11.6-14.8) % Plt Count 315 (150-400) X10^3/uL Neut % (Auto) 55.0 (50-75) % Lymph % (Auto) 36.4 (25-40) % Dickens % (Auto) 5.7 (3-14) % Eos % (Auto) 1.8 L (2-4) % Baso % (Auto) 1.1 (0-2) % Neut # (Auto) 5500 (3815-1262) /uL Lymph # (Auto) 3600 (1575-1368) /uL Dickens # (Auto) 600 (0-900) /uL Eos # (Auto) 200 (0-450) /uL Baso # (Auto) 100 (0-100) /uL Sodium 134 L (137-145) mmol/L Potassium 3.6 (3.4-5.1) mmol/L Chloride 96 L (98-107) mmol/L Carbon Dioxide 29 (22-32) mmol/L BUN 19 H (7-17) mg/dL Creatinine 0.99 (0.52-1.04) mg/dL Estimated GFR > 60 (>60) mL/min BUN/Creatinine Ratio 19.2 (6-22) Glucose 242 H (80-110) mg/dL Lactate 2.4 H (0.7-2.1) mmol/L Calcium 9.8 (8.4-10.2) mg/dL Magnesium 1.8 (1.6-2.3) mg/dL Total Bilirubin 0.5 (0.2-1.3) mg/dL AST 36 (14-36) IU/L ALT 40 H (<35) IU/L Alkaline Phosphatase 111 (38-126) U/L Troponin I < 0.012 (0.01-0.034) ng/mL Total Protein 7.7 (6.3-8.2) g/dL Albumin 4.9 (3.5-5.0) g/dL Globulin 2.8 (1.7-4.1) g/dL Albumin/Globulin Ratio 1.8 (1.0-2.8) Lipase 93 (23-300) U/L Ketones 0.10 (<0.27) mmol/L Point of Care Testing Glucose POC 279 Point of care testing: Point of Care Testing Glucose POC 279 MDM Narrative Medical decision making narrative: CC: Elevated blood sugars for 4 days Complicating co-morbidities: Diabetes, insulin dependent (? Type 1.5, ?2), hypertension, asthma, recent diarrhea episode Data collected from: patient Medical records reviewed: Primary care note from July of 2024 is reviewed Differential considered: Viral syndrome with subsequent hyperglycemia, DKA, insulin pump not working (she did change sites for her subcutaneous needle and notes that she has been using significantly more insulin over the last couple of days that indicates insulin is infusing) Exam documented above, pertinent findings include: Exam is entirely benign Lab Test results independently reviewed as above. Pertinent findings: CBC is unremarkable, no anemia Chemistries show normal renal function, slightly improved from yesterday. Potassium and sodium are appropriate. Glucose is at 242, lipase is not elevated. She does not have an anion gap acidosis Troponin is undetectable Lactic acid is slightly elevated, at 2.4 suspect this is volume related, no current signs of infection, not initially concerned with sepsis Independently reviewed EKG: Sinus rhythm at a rate of 84 with no acute ischemic changes appreciated Imaging studies independently reviewed: Chest x-ray is unremarkable Treatments: Patient was given a L of IV fluid, she boluses herself an additional 10 units of insulin Discussion: 59-year-old woman with hyperglycemia over the last number of days. She has been increasing her bolus doses but not increasing her basal insulin dose. No obvious signs of infection, DKA, dramatic electrolyte abnormalities, acute kidney injury. She has given a L of fluid, boluses herself 10 units of insulin. Her hardware and software for her insulin pump all seem to be working appropriately. Blood sugar was down to 214 at time of discharge. Reviewed all negative findings including absence of infection, cardiac involvement or alternate explanations for her couple of days of high blood sugars. I did ask her to increase her basal rate to 2.6 units consistently. Has been at 1 unit from 1:00 p.m. until midnight. She will continue to check bolus as needed and I asked her to make sure she sudden alarm to check her sugar around 3:00 a.m. this morning to make sure she does not experience any hypoglycemia. There was no indication for hospitalization at this time. Questions are answered and she is safe for discharge Discharge Plan Departure Patient Disposition: Home Clinical Impression: Acute hyperglycemia Type 2 diabetes mellitus Qualifiers: Diabetes mellitus detention insulin use: with buttermaker helper use Activity Restrictions/Additional Instructions: Thank you for coming in today I do not have a complete explanation for why your blood sugars have been significantly elevated over the last couple of days. It does seem that your insulin pump syringe and hardware are all working appropriately There was no sign of obvious infection, acute coronary syndrome, acute kidney injury, electrolyte abnormalities or other explanation. It may be that you had a mild viral infection causing your recent diarrhea and this is your body's natural response. At this point it is safe for you to go home. Together we increased your basal insulin to 2.6 units consistently. Please do continue to bolus herself as needed, continue drinking plenty of non shared fluids and make sure that you sudden alarm for 3:00 a.m. this morning to check your sugar with the basal insulin increase. I do not want you to have any hypoglycemic episodes If you find that you are getting worse or develop any new symptoms, please feel free to return to the emergency department for further evaluation. Prescriptions: No Action (DME) Dexcom G7 Sensor Device See Rx Instructions .ROUTE .MEDSUPPLY Qty: 1 Patient Comments: [NO ORIGINAL SIG] Rx Instructions: As directed insulin aspart U-100 [Novolog U-100 Insulin aspart] 100 unit/mL solution SUBCUT Patient Comments: [NO ORIGINAL SIG] lansoprazole 15 MG capsule,delayed release(DR/EC) 15 mg PO BEDTIME Qty: 0 ipratropium-albuterol 0.5 mg-3 mg(2.5 mg base)/3 mL solution for nebulization 3 ml INHALATION QID PRN (Reason: asthma exac) Qty: 180 5RF montelukast 10 mg tablet 10 mg PO DAILY Qty: 90 0RF albuterol sulfate 90 mcg/actuation HFA aerosol inhaler 2 puff Inhalation Q4-6H PRN (Reason: Wheezing) Qty: 8.5 6RF fluticasone propion-salmeterol [Advair Diskus] 250-50 mcg/dose blister with device 1 inh INHALATION BID Qty: 60 1RF furosemide 40 mg tablet 40 mg PO DAILY Qty: 90 0RF duloxetine 30 mg capsule,delayed release(DR/EC) 120 mg PO DAILY Qty: 360 0RF spironolactone 50 mg tablet 100 mg PO DAILY Qty: 180 0RF prednisone 20 mg tablet 40 mg PO DAILY Qty: 10 0RF triamcinolone acetonide 0.1 % cream 1 applic topical DAILY Qty: 30 0RF albuterol sulfate 1.25 mg/3 mL solution for nebulization 1.25 mg INHALATION Q4H PRN (Reason: asthma exac) Qty: 90 0RF Referrals: Rain Coronado DO [Primary Care Provider] - Stand Alone Forms: Patient Portal/API/Survey
[2024-12-02 14:01] LABS: Appearance Urine UA CLEAR; Bilirubin Urine UA NEGATIVE (NEGATIVE); Color Urine UA YELLOW; Glucose Urine UA NEGATIVE (Negative); Ketones Urine UA NEGATIVE (NEGATIVE); Leukocyte Esterase Urine UA NEGATIVE (NEGATIVE); Nitrite Urine UA NEGATIVE (Negative); Occult Blood Urine UA NEGATIVE (Negative); Protein Urine UA NEGATIVE (Negative); Specific Gravity Urine UA <=1.005 (1.000-1.035); Urobilinogen Urine UA 0.2 E.U./dL (0.2)
[2024-12-02 14:07] LABS: Bacteria Urine None Seen; Culture Indicated Urine Cult Not Indicated; RBC Urine None Seen (0-5/HPF); Squamous Epithelial Cell Urine None Seen (0-5/HPF); Urine Volume 10mL (spun); WBC Urine None Seen (0-5/HPF)
[2024-12-02 14:33] LABS: Reflexed Lactate in 2 Hours Y
== END 2024-12-02 14:24 | disposition home or self-care (01) ==
PROVIDERS: Emergency Provider Emergency Medicine; PCP Family Medicine
DX: E11.65 Type 2 diabetes mellitus with hyperglycemia (principal); Z79.4 Long term (current) use of insulin; R10.9 Unspecified abdominal pain
CPT/HCPCS: 36415; 71045; 80053; 81001; 82009; 82962; 83605; 83690; 83735; 84484; 85025; 93005; 93010; 96360; 99284

== ENCOUNTER → 2025-02-07 14:37 | Outpatient (CLI) | payer OTHER, SELFPAY ==
[2020-12-12 18:38] VITALS: BMI 35.4
--- NOTE | 2025-02-23 13:08 | DIAB.INIT ---
Initial Diabetes Education Assessment Name: Daisy Morrow Date: 02/07/25 Time: [id number] Dx: Type II Diabetes with CKD Provider: Cliff Villa presents for initial Dm visit. Using Tandem with Dexcom G7. Endorses macular edema. PMH of 2009 H1N1 requiring prednisone treatment, which significantly worsened DM per report. Tried other DM meds: Metformin-- persistent diarrhea GLP1 7-8 years ago Continues prednisone tx prn. Missing data with d/c of pump use due to running out of insulin. No insulin x 1 week due to pharmacy delay. Treats lows with soda, juice, or hard candy Mostly avoids CHO due to fluctuating BG. Has two setting options for pump profiles. Currently on the less aggressive profile. Not using sleep settings. Very sensitive IC ratio. TDD: 110.57u Pump Settings: Basal rate: 2.2-2.6u/hour ISF: 1:30 IC: 1:1.2 Target: 110mg/dl Prednisone pump profile less aggressive than mine pump profile. Note, future changes to this pump profile for covering prednisone. Reports having to interact excessively with pump at this time. Getting excessive alerts at work. max bolus cannot be changed and set to 25u. Anthropometrics: Ht: 66 Wt: 224# Self-Monitoring Blood Glucose: TIR: 11% very high 42% high 47% in range 0% low avmg/dl std dev: 47mg/dl variation 25% Diabetes Medications: Aspart via pump Pertinent Labs: HgA1c: 9.5% 11/2024 Past Medical History: (Last Reviewed 12/02/24 @ 13:37 by Brandee Rao MD) Allergies (~1964) Anxiety and depression (~1984) Asthma (~1962) Severe Carpal tunnel syndrome (~2014) Cervical vertebral fusion Chicken pox (~1969) Chronic back pain CKD (chronic kidney disease) (~2017) Stage 3 Cubital tunnel syndrome Left Cubital tunnel syndrome of both upper extremities Degenerative disc disease, lumbar Eczema (~1962) GERD (gastroesophageal reflux disease) (~1989) Gout Headache (~1974) Hearing loss Right ear has very decreased hearing HTN (hypertension) (~1983) Hyperaldosteronism Irritable bowel syndrome (~1989) Mumps (~1967) NAFLD (nonalcoholic fatty liver disease) Peripheral neuropathy Retinopathy with macular edema Statin intolerance Type 2 diabetes mellitus (~2009) Insulin dependent Intervention: This participant was very receptive. Provided appropriate educational handouts. Discussed the following topics: Completed intake assessment. Discussed barriers to care. Troubleshooting insulin access and pharmacy Current pump settings and potential changes Insulin pump types and action Changing to more aggressive pump settings (via phone call after this visit) Setting sleep setting (via phone after this visit) Created SMART goals for patient self-care and success. Goals: Call new pharmacy and ask them to request insulin rx- new Use sleep setting- new Change to mine more aggressive pump settings- new Follow-up: FRANCESCO VELIZ follow-up in 3-4 weeks Cassie Raman RDN, JOSE ALFREDO Certified Diabetes Care and Latin Dancer P: [phone] Thank you for this referral
== END ==
LOC: DIET 14:37
PROVIDERS: PCP Family Medicine; Referring Provider Family Medicine
DX: E11.22 Type 2 diabetes mellitus with diabetic chronic kidney disease (principal); Z71.3 Dietary counseling and surveillance; H35.81 Retinal edema; Z96.41 Presence of insulin pump (external) (internal); Z79.4 Long term (current) use of insulin
CPT/HCPCS: G0108

== ENCOUNTER → 2025-03-08 08:54 | Outpatient (CLI) | payer OTHER, SELFPAY ==
[2020-12-12 18:38] VITALS: BMI 35.4
--- NOTE | 2025-03-08 09:06 | DIAB.FU ---
Follow-up Diabetes Education Assessment: Personal CGM and Insulin pump start Name: Daisy Morrow Date: 03/08/25 Time: 9-10a Dx: Type II Diabetes with CKD Provider: Cliff Daisy presents for Dm visit. Currently using Tandem with Dexcom G7, but arrives with Prezacortronic 780G and Guardian CGM sensor for pump switch. May benefit from GLP1 therapy given insulin resistance. States she tried a GLP1 years ago, but this did not help much. A newer GLP1 may be worth a consideration. New pump settings adjusted with a stronger insulin sensitivity factor to also allow for a higher insulin to carb ratio. Previous Pump Settings: Basal rate: 2.2-2.6u/hour ISF: 1:15 IC: 1:1.2 Target: 110mg/dl New Pump Settings: Basal rate: 2.6u/hour ISF: 1:10 IC: 1:3 Target: 100mg/dl Anthropometrics: Ht: 66 Wt: 224# Self-Monitoring Blood Glucose: Does not have a meter with supplies. Provided Accucheck meter with limited supplies in pump supplies. Will need rx for supplies. Last TIR: 11% very high 42% high 47% in range 0% low avmg/dl std dev: 47mg/dl variation 25% Diabetes Medications: Aspart via pump Pertinent Labs: HgA1c: 9.5% 11/2024 Past Medical History: (Last Reviewed 12/02/24 @ 13:37 by Brandee Rao MD) Allergies (~1965) Anxiety and depression (~1984) Asthma (~1962) Severe Carpal tunnel syndrome (~2014) Cervical vertebral fusion Chicken pox (~1969) Chronic back pain CKD (chronic kidney disease) (~2017) Stage 3 Cubital tunnel syndrome Left Cubital tunnel syndrome of both upper extremities Degenerative disc disease, lumbar Eczema (~1962) GERD (gastroesophageal reflux disease) (~1989) Gout Headache (~1974) Hearing loss Right ear has very decreased hearing HTN (hypertension) (~1983) Hyperaldosteronism Irritable bowel syndrome (~1989) Mumps (~1967) NAFLD (nonalcoholic fatty liver disease) Peripheral neuropathy Retinopathy with macular edema Statin intolerance Type 2 diabetes mellitus (~2009) Insulin dependent Intervention: This participant was very receptive. Provided appropriate educational handouts. Discussed the following topics: Education, precautions, and self placement of new insulin pump and CGM Created SMART goals for patient self-care and success. Goals: Call new pharmacy and ask them to request insulin rx- met Use sleep setting- met Change to mine more aggressive pump settings- met Wear new pump and CGM- new Bolus for meals/snacks- new Follow-up: FRANCESCO VELIZ follow-up in 1 week and vocational trainer follow-up over the phone tomorrow. [facility] messaged PCP workgroup for Accucheck meter supplies. Cassie Raman RDN, JOSE ALFREDO Certified Diabetes Care and Glue Spreader P: [phone] Thank you for this referral
== END ==
LOC: DIET 08:54
PROVIDERS: PCP Family Medicine; Referring Provider Family Medicine
DX: E11.22 Type 2 diabetes mellitus with diabetic chronic kidney disease (principal); N18.9 Chronic kidney disease, unspecified; Z71.3 Dietary counseling and surveillance; Z79.4 Long term (current) use of insulin; Z96.41 Presence of insulin pump (external) (internal)
CPT/HCPCS: 95249

== ENCOUNTER → 2025-03-15 08:21 | Outpatient (CLI) | payer OTHER, SELFPAY ==
[2020-12-12 18:38] VITALS: BMI 35.4
--- NOTE | 2025-03-30 15:09 | DIAB.FU ---
Follow-up Diabetes Education Assessment Name: Daisy Morrow Date: 03/15/25 Time: 830-9a Dx: Type II Diabetes with CKD Provider: Cliff Villa presents for Dm visit. Using 780G and in autocorrection mode with SmartGuard. Overall, seems less alarms and interactions as with last pump per report. Needs to order supplies. New Pump Settings: Basal rate: 2.6u/hour ISF: 1:10----8 IC: 1:3 Target: 100mg/dl Anthropometrics: Ht: 66 Wt: 224# Self-Monitoring Blood Glucose: Improved hyperglycemia however still below goal for time in range. Less time >250mg/dl. TIR: 4% very high 43% high 53% in range 0% low avmg/dl std dev: 38mg/dl GMI: variation 21.4% Last TIR: 11% very high 42% high 47% in range 0% low avmg/dl std dev: 47mg/dl variation 25% Diabetes Medications: Aspart via pump Pertinent Labs: HgA1c: 9.5% 11/2024 Past Medical History: (Last Reviewed 12/02/24 @ 13:37 by Brandee Rao MD) Allergies (~1964) Anxiety and depression (~1984) Asthma (~1962) Severe Carpal tunnel syndrome (~2014) Cervical vertebral fusion Chicken pox (~1969) Chronic back pain CKD (chronic kidney disease) (~2017) Stage 3 Cubital tunnel syndrome Left Cubital tunnel syndrome of both upper extremities Degenerative disc disease, lumbar Eczema (~1962) GERD (gastroesophageal reflux disease) (~1989) Gout Headache (~1974) Hearing loss Right ear has very decreased hearing HTN (hypertension) (~1983) Hyperaldosteronism Irritable bowel syndrome (~1989) Mumps (~1967) NAFLD (nonalcoholic fatty liver disease) Peripheral neuropathy Retinopathy with macular edema Statin intolerance Type 2 diabetes mellitus (~2009) Insulin dependent Intervention: This participant was very receptive. Provided appropriate educational handouts. Discussed the following topics: ISF changes Ordering supplies Changing out sites for insulin pump and CGM Created SMART goals for patient self-care and success. Goals: Wear new pump and CGM- met Bolus for meals/snacks- met Order supplies- new Follow-up: FRANCESCO VELIZ follow-up in 3 weeks Cassie Raman RDN, JOSE ALFREDO Certified Diabetes Care and Senior Administrator Support P: [phone] Thank you for this referral
== END ==
PROVIDERS: PCP Family Medicine; Referring Provider Family Medicine
DX: E11.22 Type 2 diabetes mellitus with diabetic chronic kidney disease (principal); E11.65 Type 2 diabetes mellitus with hyperglycemia; N18.9 Chronic kidney disease, unspecified; Z79.4 Long term (current) use of insulin; Z71.3 Dietary counseling and surveillance; Z96.41 Presence of insulin pump (external) (internal)
CPT/HCPCS: G0108

== ENCOUNTER 2025-03-25 07:42 | Emergency (ER) | payer OTHER, SELFPAY ==
[2020-12-12 18:38] VITALS: BMI 35.4
[2025-03-25] VITALS (7 sets, daily range): BP systolic 139–174; BP diastolic 69–87; PULSE 88–91; RESP 20; TEMP 36.9; O2SAT 97–99; BMI 36.8
--- NOTE | 2025-03-25 08:18 | ED.URI ---
HPI - URI/Sore Throat General Chief Complaint: Upper Respiratory Symptoms Stated Complaint: Cold symptoms getting worse, SOB Time Seen by Provider: 03/25/25 08:06 Source: patient Mode of arrival: Ambulatory History of Present Illness HPI Narrative: Patient is a 59-year-old female history of asthma insulin-dependent diabetes presenting today with increasing shortness of breath. She reports that she has had upper respiratory like symptoms for the last 6 days. She started prednisone 4 days ago has a 40 mg burst dose and just feels she was not getting any better. Not really having any fevers or chills short of breath using her albuterol inhaler. Having chest tightness feeling like she has a headache. No significant fever or chills. Related Data Home Medications Medication Instructions Recorded Confirmed lansoprazole 15 mg capsule,delayed 15 mg PO BEDTIME ##0 11/21/16 12/07/24 release blood-glucose sensor (IPextremecom G7 #1 ea 06/29/24 12/07/24 Sensor device) Previous Rx's Medication Instructions Recorded albuterol sulfate 1.25 mg/3 mL 1.25 mg (3 mL) inhalation Q4H PRN 12/01/18 solution for nebulization asthma exac #90 mL ipratropium 0.5 mg-albuterol 3 mg 3 ml inhalation QID PRN asthma 03/01/23 (2.5 mg base)/3 mL nebulization exac #180 mL soln triamcinolone acetonide 0.1 % 1 applic topical DAILY #30 grams 05/12/24 topical cream fluticasone 250 mcg-salmeterol 50 1 inh inhalation BID #60 ea 07/13/24 mcg/dose blistr powdr for inhalation (Advair Diskus) prednisone 20 mg tablet 40 mg (2 x 20 mg) PO DAILY #10 tabs 09/22/24 montelukast 10 mg tablet 10 mg PO DAILY #90 tabs 12/13/24 albuterol sulfate 90 mcg/actuation 2 puff inhalation Q4-6H PRN 12/14/24 aerosol inhaler Wheezing #8.5 grams duloxetine 30 mg capsule,delayed 120 mg (4 x 30 mg) PO DAILY #360 12/14/24 release caps furosemide 40 mg tablet 40 mg PO DAILY #90 tabs 12/14/24 spironolactone 50 mg tablet 100 mg (2 x 50 mg) PO DAILY #180 12/14/24 tabs insulin aspart U-100 100 unit/mL See Rx Instructions SUBCUT 03/07/25 subcutaneous solution (Novolog .COMPLEX #40 mL U-100 Insulin aspart) blood sugar diagnostic (Accu-Chek #50 ea 03/08/25 Guide test strips) lancets (Accu-Chek Softclix #100 ea 03/08/25 Lancets) prednisone 10 mg tablet 10 mg PO DAILY #18 tabs 03/25/25 Allergies Allergy/AdvReac Type Severity Reaction Status Date / Time levofloxacin [From LEVAQUIN] Allergy Intermediate RASH Verified 12/07/24 12:28 aspirin [ASPIRIN] Allergy Unknown Diaphoresis Verified 12/07/24 12:28 azithromycin [AZITHROMYCIN] Allergy Unknown Wheezing Verified 12/07/24 12:28 diclofenac [DICLOFENAC] Allergy Unknown Rash Verified 12/07/24 12:28 tramadol [TRAMADOL] Allergy Unknown Altered Verified 12/07/24 12:28 mental status [id number] Reductase AdvReac Intermediate muscle pain Verified 12/07/24 12:28 Inhibitor Patient History Medical History Hearing loss Cervical vertebral fusion Statin intolerance Peripheral neuropathy Retinopathy Eczema (~1962) Allergies (~1964) Anxiety and depression (~1984) Headache (~1974) Cubital tunnel syndrome Chronic back pain Carpal tunnel syndrome (~2014) Mumps (~1967) Chicken pox (~1969) Irritable bowel syndrome (~1989) Degenerative disc disease, lumbar Cubital tunnel syndrome of both upper extremities Hyperaldosteronism NAFLD (nonalcoholic fatty liver disease) GERD (gastroesophageal reflux disease) (~1989) CKD (chronic kidney disease) (~2017) Gout HTN (hypertension) (~1983) Type 2 diabetes mellitus (~2009) Asthma (~1962) Surgical History Status post cervical discectomy Anesthesia History of microdiscectomy (~1999) S/P lumbar laminectomy (~1990) History of cholecystectomy (~2013) H/O: hysterectomy (~2006) Previous section Family History Mother History of heart disease Mental health problem COPD (chronic obstructive pulmonary disease) History of emphysema Sister Breast cancer Social History household members: spouse Smoking Status: Former smoker alcohol intake: former Smoking Status: Former smoker alcohol intake frequency: other Exam Initial Vital Signs Initial Vital Signs: Vital Signs Temperature 98.4 F 03/25/25 07:53 Pulse Rate 89 03/25/25 07:53 Respiratory Rate 20 03/25/25 07:53 Blood Pressure 174/79 H 03/25/25 07:53 Pulse Oximetry 97 03/25/25 07:53 Oxygen Delivery Method Room Air 03/25/25 07:53 GENERAL: Alert 59-year-old female mild respiratory distress HEENT: Head atraumatic,EOMI, pupils reactive, face symmetric, moist mucous membranes CARDIOVASCULAR: Regular rate and rhythm without murmurs, rubs or gallops. RESPIRATORY: Decreased breath sounds bilaterally with wheezing bilaterally ABDOMEN: Soft, nontender. Normoactive bowel sounds all 4 quadrants. No guarding or rebound. EXTREMITIES: Normal range of motion, no clubbing or edema. Neurovascularly intact NEUROLOGICAL: Alert and oriented x4.Normal gait and speech. Cranial nerves II through XII grossly intact. SKIN: Warm, dry, no laceration, no petechiae, no rashes or lesions. Course Orders Ordered: ED Orders 03/25/25 08:00 Covid-19 + FLU A/B + RSV - PCR Stat 03/25/25 08:18 EKG-12 Lead Stat 03/25/25 08:20 BNP [NT-proBNP (BNP-Adult 18+)] Stat CBC Auto Diff [Complete Blood Count AUTO DIFF] Stat CMP [Comprehensive Metabolic Panel] Stat Troponin & CK Cardiac Panel Stat 03/25/25 09:23 Chest [XR chest 1V] Stat Discontinued Medications Albuterol/Ipratropium (Albuterol/Ipratropium 3 Ml Ampul) 3 ml INH NOW ONE Stop: 03/25/25 08:19 Last Admin: 03/25/25 08:32 Dose: 3 ml Documented By: BUCKY Sodium Chloride (Normal Saline 0.9%) 1,000 mls @ 1,000 mls/hr IV BOLUS ONE Stop: 03/25/25 09:17 Last Infusion: 03/25/25 10:15 Dose: Infused Documented By: Admin: 03/25/25 08:25 Dose: 1,000 mls/hr Documented By: DARIEN Methylprednisolone (Methylprednisolone 125 Mg/2 Ml Vial) 125 mg IV NOW ONE Stop: 03/25/25 08:19 Last Admin: 03/25/25 08:25 Dose: 125 mg Documented By: DARIEN Vital Signs Vital signs: Vital Signs - 8 hr 03/25/25 07:53 03/25/25 08:17 03/25/25 08:30 Temperature 98.4 F Pulse Rate 89 88 88 Respiratory Rate 20 Blood Pressure 174/79 H Pulse Oximetry 97 99 99 Oxygen Delivery Method Room Air Fraction of Inspired Oxygen 03/25/25 08:30 03/25/25 08:39 03/25/25 09:00 Temperature Pulse Rate 89 88 Respiratory Rate 20 Blood Pressure 139/73 Pulse Oximetry 98 97 Oxygen Delivery Method Room Air Fraction of Inspired Oxygen 21 03/25/25 09:00 03/25/25 09:30 03/25/25 09:30 Temperature Pulse Rate 91 H Respiratory Rate Blood Pressure 147/69 H 142/87 H Pulse Oximetry 99 Oxygen Delivery Method Fraction of Inspired Oxygen 03/25/25 10:00 03/25/25 10:00 Temperature Pulse Rate 89 Respiratory Rate Blood Pressure 142/85 H Pulse Oximetry 98 Oxygen Delivery Method Fraction of Inspired Oxygen MDM - URI/Sore Throat Lab Data 03/25/25 08:20 03/25/25 08:20 Labs: Lab Results 03/25/25 03/25/25 Range/Units 08:00 08:20 WBC 15.0 H (4.5-11.0) X10^3/uL RBC 4.99 (4.0-5.2) X10^6/uL Hgb 14.2 (12.0-16.0) g/dL Hct 43.2 (36-46) % MCV 86.5 (80-100) fL MCH 28.4 (26-34) PG MCHC 32.9 (30-36) % RDW 13.6 (11.6-14.8) % Plt Count 321 (150-400) X10^3/uL Neut % (Auto) 82.3 H (50-75) % Lymph % (Auto) 12.7 L (25-40) % [place] % (Auto) 3.9 (3-14) % Eos % (Auto) 0.6 L (2-4) % Baso % (Auto) 0.5 (0-2) % Neut # (Auto) 71391 H (9266-2226) /uL Lymph # (Auto) 1900 (5114-3583) /uL [place] # (Auto) 600 (0-900) /uL Eos # (Auto) 100 (0-450) /uL Baso # (Auto) 100 (0-100) /uL Sodium 137 (137-145) mmol/L Potassium 4.3 (3.4-5.1) mmol/L Chloride 100 (98-107) mmol/L Carbon Dioxide 27 (22-32) mmol/L BUN 20 H (7-17) mg/dL Creatinine 1.02 (0.52-1.04) mg/dL Estimated GFR > 60 (>60) mL/min BUN/Creatinine Ratio 19.6 (6-22) Glucose 173 H (70-99) mg/dL Calcium 9.7 (8.4-10.2) mg/dL Total Bilirubin 0.5 (0.2-1.3) mg/dL AST 30 (14-36) IU/L ALT 37 H (<35) IU/L Alkaline Phosphatase 94 (38-126) U/L Total Creatine Kinase 45 (30-135) U/L Troponin I < 0.012 (0.01-0.034) ng/mL NT-Pro-B Natriuret Pep 69 (<125) pg/mL Total Protein 7.5 (6.3-8.2) g/dL Albumin 4.7 (3.5-5.0) g/dL Globulin 2.8 (1.7-4.1) g/dL Albumin/Globulin Ratio 1.7 (1.0-2.8) SARS-CoV-2 (PCR) Negative (Negative) Influenza A (RT-PCR) Flu a negative (NEGATIVE) Influenza B (RT-PCR) Flu b negative (NEGATIVE) RSV (PCR) Negative (Negative) Imaging Data Chest x-ray: Radiologist's Impression: PROCEDURE: XR CHEST 1V INDICATIONS: short of breath TECHNIQUE: One view of the chest was acquired. COMPARISON: [facility], CR, XR CHEST 2V, 01/11/2024, 12:26. [facility], CR, XR CHEST 2V, 08/23/2023, 15:39. [facility], CR, XR CHEST 1V, 12/02/2024, 12:56. FINDINGS: Surgical changes and devices: Cervical spine fixation hardware is seen. Lungs and pleura: Lungs are clear. No pleural effusions or pneumothorax. Mediastinum: Mediastinal contours appear normal. Heart size is normal. Bones and chest wall: No suspicious bony lesions. Age-appropriate bony degenerative changes are seen. Overlying soft tissues appear unremarkable. IMPRESSION: Portable chest within normal limits for age. Dictated by: Porfirio Livingston M.D. on 03/25/2025 at 8:56 ECG Data Attestation: I personally reviewed and interpreted this ECG as follows: Interpretation: Normal sinus rhythm rate 85 ME interval 148 QRS [address] changes or T-wave inversions MDM Narrative Medical decision making narrative: MDM CC: Shortness of breath Complicating co-morbidities: Asthma insulin-dependent diabetes Data collected from: Patient Differential considered: Asthma exacerbation congestive heart failure pneumonia Exam documented above, pertinent findings include: She does have some wheezing and decreased breath sounds bilaterally mild dyspnea and respiratory distress no significant peripheral edema Lab Test results independently reviewed as above. Pertinent findings: CBC leukocytosis of 15 but is on steroids no anemia CMP no electrolyte abnormality BUN 20 creatinine 1.0 glucose was 173 Bilirubin liver enzymes within normal limits Troponin negative, BNP 69 EKGs reviewed: No acute ischemia sinus rhythm Imaging studies independently reviewed: no acute cardiopulmonary process Consultations: None Treatments: albuterol IV fluids Solu-Medrol Re-evaluations: Patient is breathing better after DuoNeb treatment. She was not hypoxic she is a little shaky does not want another 1. Continues to have headache but says it not too bad Discussion: 59-year-old female history of asthma presenting today with asthma exacerbation. She was at upper respiratory symptoms for about a week been on prednisone for 4 days overall knocking better. She did actually improve with a DuoNeb treatment no evidence of pneumonia on x-ray blood work is overall reassuring. She was not hypoxic. At this time encourage regular albuterol treatments at home and tapering prednisone dose. No need for antibiotics at this time. Discharge Plan Departure Patient Disposition: Home Clinical Impression: Asthma exacerbation Instructions: Asthma -- Adult Activity Restrictions/Additional Instructions: *You have been diagnosed with asthma exacerbation *What to do: At this time make sure you are drinking at a fluids *Continue to take medications as directed Prednisone 30 mg for 3 days, 20 mg, for 3 days 10 mg for 3 days then stop Nebulizer every 4 hours while awake for today see if you can stretch it to every 6 hours while awake tomorrow *Follow up with your primary care provider in 2-3 days or call [phone] *Return to ER if you should have increasing shortness of breath difficulty breathing chest pain or any new, worsening or concerning symptoms Prescriptions: New prednisone 10 mg tablet 10 mg PO DAILY Qty: 18 0RF Rx Instructions: day 1-3: 30 mg once a day day 4-6: 20 mg once a day day 7-9: 10 mg once a day No Action (DME) Dexcom G7 Sensor Device See Rx Instructions .ROUTE .MEDSUPPLY Qty: 1 Patient Comments: [NO ORIGINAL SIG] Rx Instructions: As directed lansoprazole 15 MG capsule,delayed release(DR/EC) 15 mg PO BEDTIME Qty: 0 ipratropium-albuterol 0.5 mg-3 mg(2.5 mg base)/3 mL solution for nebulization 3 ml INHALATION QID PRN (Reason: asthma exac) Qty: 180 5RF fluticasone propion-salmeterol [Advair Diskus] 250-50 mcg/dose blister with device 1 inh INHALATION BID Qty: 60 1RF prednisone 20 mg tablet 40 mg PO DAILY Qty: 10 0RF montelukast 10 mg tablet 10 mg PO DAILY Qty: 90 3RF albuterol sulfate 90 mcg/actuation HFA aerosol inhaler 2 puff Inhalation Q4-6H PRN (Reason: Wheezing) Qty: 8.5 6RF spironolactone 50 mg tablet 100 mg PO DAILY Qty: 180 3RF duloxetine 30 mg capsule,delayed release(DR/EC) 120 mg PO DAILY Qty: 360 6RF furosemide 40 mg tablet 40 mg PO DAILY Qty: 90 3RF insulin aspart U-100 [Novolog U-100 Insulin aspart] 100 unit/mL solution See Rx Instructions SUBCUT .COMPLEX Qty: 40 3RF Rx Instructions: subcutaneously to use with insulin pump. (DME) Accu-Chek Guide test strips Strip See Rx Instructions .Route Qty: 50 2RF Rx Instructions: As directed to check blood glucose 1-2 times daily (DME) lancets [Accu-Chek Softclix Lancets] Misc See Rx Instructions .Route Qty: 100 1RF Rx Instructions: As directed to check blood glucose 1-2 times daily triamcinolone acetonide 0.1 % cream 1 applic topical DAILY Qty: 30 0RF albuterol sulfate 1.25 mg/3 mL solution for nebulization 1.25 mg INHALATION Q4H PRN (Reason: asthma exac) Qty: 90 0RF Referrals: Rain Coronado DO [Primary Care Provider] - Stand Alone Forms: Patient Portal/API/Survey
[2025-03-25] MEDS: methylPREDNISolone 125 MG/2 ML VIAL IV (08:25)
[2025-03-25] MEDS: SODIUM CHLORIDE 0.9% 1,000 ML 1000 ML IV (08:25)
[2025-03-25 08:28] LABS: Add Manual Diff / Slide Review NO; Basophils Absolute Auto 100 /uL (0-100); Basophils Percent Auto 0.5 % (0-2); Eosinophils Absolute Auto 100 /uL (0-450); Eosinophils Percent Auto 0.6 % (2-4); Hematocrit 43.2 % (36-46); Hemoglobin 14.2 g/dL (12.0-16.0); Lymphocytes Absolute Auto 1900 /uL (1100-4500); Lymphocytes Percent Auto 12.7 % (25-40); Mean Corpuscular HGB Conc 32.9 % (30-36); Mean Corpuscular Hemoglobin 28.4 PG (26-34); Mean Corpuscular Volume 86.5 fL (80-100); Monocytes Absolute Auto 600 /uL (0-900); Monocytes Percent Auto 3.9 % (3-14); Neutrophils Absolute Auto 12300 /uL (1500-7000); Neutrophils Percent Auto 82.3 % (50-75); Platelet Count 321 X10^3/uL (150-400); Red Blood Cell Count 4.99 X10^6/uL (4.0-5.2); Red Cell Distribution Width 13.6 % (11.6-14.8)
[2025-03-25] MEDS: ALBUTEROL/IPRATROPIUM 3 ML AMPUL INH (08:32)
--- NOTE | 2025-03-25 08:35 | EKG_ITS ---
[address] [address] Test Date: 2025-03-25 Pat Name: Daisy Morrow Department: [facility] Room: Gender: Female Shelter Director: KAY : 1965 Requested By: Order Number: [id number] Reading MD: Darwin Odonnell MD Measurements Intervals [place] Rate: 85 P: 68 [place]: 148 QRS: 24 QRSD: 96 T: 63 QT: 348 QTc: 414 Interpretive Statements Normal sinus rhythm Nonspecific T wave abnormality Electronically Signed On 03-25-2025 8:43:44 PDT by Darwin Odonnell MD
[2025-03-25 08:39] LABS: Alanine Aminotransferase 37 IU/L (<35); Albumin 4.7 g/dL (3.5-5.0); Albumin Globulin Ratio 1.7 (1.0-2.8); Alkaline Phosphatase 94 U/L (38-126); Aspartate Aminotransferase 30 IU/L (14-36); BUN Creatinine Ratio 19.6 (6-22); Bilirubin Total 0.5 mg/dL (0.2-1.3); Blood Urea Nitrogen 20 mg/dL (7-17); Calcium 9.7 mg/dL (8.4-10.2); Carbon Dioxide 27 mmol/L (22-32); Chloride 100 mmol/L (98-107); Creatine Kinase 45 U/L (30-135); Estimated Glomerular Filt Rate > 60 mL/min (>60); Globulin 2.8 g/dL (1.7-4.1); Glucose 173 mg/dL (70-99); HEMOLYSIS < 15 (0-50); Potassium 4.3 mmol/L (3.4-5.1); Sodium 137 mmol/L (137-145); Total Protein 7.5 g/dL (6.3-8.2)
[2025-03-25 08:40] LABS: Influenza A - CEPHEID Flu A NEGATIVE (NEGATIVE); Influenza B - CEPHEID Flu B NEGATIVE (NEGATIVE); Respiratory Syncytial Virus Negative (Negative)
[2025-03-25 08:42] LABS: COVID-19 CEPHEID 4-PLEX PCR Negative (Negative)
[2025-03-25 08:51] LABS: NT-proBNP (BNP-Adult 18+) 69 pg/mL (<125); Troponin I < 0.012 ng/mL (0.01-0.034)
--- NOTE | 2025-03-25 09:23 | DI.RAD.S_ITS ---
PROCEDURE: XR CHEST 1V INDICATIONS: short of breath TECHNIQUE: One view of the chest was acquired. COMPARISON: [facility], CR, XR CHEST 2V, 01/11/2024, 12:26. [facility], CR, XR CHEST 2V, 08/23/2023, 15:39. [facility], CR, XR CHEST 1V, 12/02/2024, 12:56. FINDINGS: Surgical changes and devices: Cervical spine fixation hardware is seen. Lungs and pleura: Lungs are clear. No pleural effusions or pneumothorax. Mediastinum: Mediastinal contours appear normal. Heart size is normal. Bones and chest wall: No suspicious bony lesions. Age-appropriate bony degenerative changes are seen. Overlying soft tissues appear unremarkable. IMPRESSION: Portable chest within normal limits for age. Dictated by: Porfirio Livingston M.D. on 03/25/2025 at 8:56 Approved by: Porfirio Livingston M.D. on 03/25/2025 at 8:57
== END 2025-03-25 10:35 | disposition home or self-care (01) ==
PROVIDERS: Emergency Provider Emergency Medicine; PCP Family Medicine
DX: J45.901 Unspecified asthma with (acute) exacerbation (principal); R07.9 Chest pain, unspecified; R51.9 Headache, unspecified; Z87.891 Personal history of nicotine dependence
CPT/HCPCS: 0241U; 36415; 71045; 80053; 82550; 83880; 84484; 85025; 93005; 93010; 94640; 96361; 96374; 99284; J2919

== ENCOUNTER → 2025-04-05 11:04 | Outpatient (CLI) | payer OTHER, SELFPAY ==
[2020-12-12 18:38] VITALS: BMI 35.4
--- NOTE | 2025-04-05 13:18 | DIAB.FU ---
Follow-up Diabetes Education Assessment Name: Daisy Morrow Date: 04/05/25 Time: 1110-1140a Dx: Type II Diabetes with CKD Provider: Cliff Daisy presents for Dm visit. Reports problems with ordering supplies and recently ran out of sensors for her CGM. Has received the rest of the supplies. Endorses feeling overwhelmed by both work and getting supplies for the new pump. States she thinks she is on auto refill on supplies now, but is unsure. RD messaged [employer] contacts to confirm. New Pump Settings: Basal rate: 2.6u/hour ISF: 1:10----8 IC: 1:3---- 1:2 Target: 100mg/dl Smart guard insulin action time: 3 hours--- changed to 2 hours Anthropometrics: Ht: 66 Wt: 224# Self-Monitoring Blood Glucose: Increased hyperglycemia. Needing adjusted insulin time while in smartguard, adjusted IC ratio and to restart automation. TIR: 35% very high 26% high 39% in range 0% low avmg/dl std dev: 71mg/dl GMI: variation % Last TIR: 4% very high 43% high 53% in range 0% low avmg/dl std dev: 38mg/dl GMI: variation 21.4% Diabetes Medications: Aspart via pump Pertinent Labs: HgA1c: 9.5% 11/2024 Past Medical History: (Last Reviewed 12/02/24 @ 13:37 by Brandee Rao MD) Allergies (~1965) Anxiety and depression (~1984) Asthma (~1962) Severe Carpal tunnel syndrome (~2014) Cervical vertebral fusion Chicken pox (~1969) Chronic back pain CKD (chronic kidney disease) (~2017) Stage 3 Cubital tunnel syndrome Left Cubital tunnel syndrome of both upper extremities Degenerative disc disease, lumbar Eczema (~1962) GERD (gastroesophageal reflux disease) (~1989) Gout Headache (~1974) Hearing loss Right ear has very decreased hearing HTN (hypertension) (~1983) Hyperaldosteronism Irritable bowel syndrome (~1989) Mumps (~1967) NAFLD (nonalcoholic fatty liver disease) Peripheral neuropathy Retinopathy with macular edema Statin intolerance Type 2 diabetes mellitus (~2009) Insulin dependent Intervention: This participant was very receptive. Provided appropriate educational handouts. Discussed the following topics: setting changes Ordering supplies troubleshooting Provided sensors until she gets her shipment Created SMART goals for patient self-care and success. Goals: Wear new pump and CGM- met Bolus for meals/snacks- met Order supplies- met Trial new settings- new Message RD in one week about ordering and settings- new Follow-up: FRANCESCO VELIZ follow-up in 1 week via phone or messaging and 3-4 weeks 1:1 Cassie Raman RDN, JOSE ALFREDO Certified Diabetes Care and License Inspector P: [phone] Thank you for this referral
== END ==
PROVIDERS: PCP Family Medicine; Referring Provider Family Medicine
DX: E11.22 Type 2 diabetes mellitus with diabetic chronic kidney disease (principal); N18.9 Chronic kidney disease, unspecified; E11.65 Type 2 diabetes mellitus with hyperglycemia; Z71.3 Dietary counseling and surveillance; Z96.41 Presence of insulin pump (external) (internal); Z79.4 Long term (current) use of insulin
CPT/HCPCS: G0108

== ENCOUNTER → 2025-05-03 15:24 | Outpatient (CLI) | payer OTHER, SELFPAY ==
[2020-12-12 18:38] VITALS: BMI 35.4
--- NOTE | 2025-05-10 15:39 | DIAB.MNTFU ---
Follow-up Diabetes Medical Nutrition Therapy Assessment Name: Daisy Morrow Date: 05/03/25 Time: 330-430p Dx: Type II Diabetes with CKD Provider: Cliff Villa presents for Dm visit. Reports ordering issues have resolved. Received pump supplies. Really liking auto corrections with this pump. Endorses reduced stress lately, previous financial stress. Endorses one low after activity cleaning in garage. States she is trying to eat TID. Does not like most fish. No PCP visit scheduled. Diet recall: 7-8a: eggs, javier or sausage 11a: 1c turkey and rice soup OR 2 small potatoes with meatloaf and veg 2p: nothing or apple 5p: chicken, greens OR chicken with bbq and lester 32oz x 2 water diet soda pop tea with splenda Pump Settings: Basal rate: 2.6u/hour ISF: 8 IC: 1:2 Target: 100mg/dl Smart guard insulin action time: 2 hours Anthropometrics: Ht: 66 Wt: none today Self-Monitoring Blood Glucose: Improved TIR with automation and pump supplies TIR: 3% very high 28% high 69% in range 0% low avmg/dl std dev: 35mg/dl GMI: 7.4% variation % Last TIR: 35% very high 26% high 39% in range 0% low avmg/dl std dev: 71mg/dl GMI: variation % Diabetes Medications: Aspart via pump Pertinent Labs: HgA1c: 9.5% 11/2024 Past Medical History: (Last Reviewed 12/02/24 @ 13:37 by Brandee Rao MD) Allergies (~1964) Anxiety and depression (~1984) Asthma (~1962) SevereCarpal tunnel syndrome (~2014) Cervical vertebral fusion Chicken pox (~1969) Chronic back pain CKD (chronic kidney disease) (~2017) Stage 3Cubital tunnel syndrome LeftCubital tunnel syndrome of both upper extremities Degenerative disc disease, lumbar Eczema (~1962) GERD (gastroesophageal reflux disease) (~1989) Gout Headache (~1974) Hearing loss Right ear has very decreased hearingHTN (hypertension) (~1983) Hyperaldosteronism Irritable bowel syndrome (~1989) Mumps (~1967) NAFLD (nonalcoholic fatty liver disease) Peripheral neuropathy Retinopathy with macular edemaStatin intolerance Type 2 diabetes mellitus (~2009) Insulin dependent Nutrition Rx: CHO: 30g CHO per meal 15-30g per snack Nutrition Diagnosis: - Nutrition and food related knowledge deficit r/t limited previous MNT aeb pt report and diet recall Intervention: This participant was very receptive. Provided appropriate educational handouts. Discussed the following topics: balanced nutrition intake Heart healthy nutrition Adding fruit consistently Created SMART goals for patient self-care and success. Goals: Order supplies- met Trial new settings- met Message RD in one week about ordering and settings- met Add fruit to 2-230p consistently- new Aim for fish 1x per week -new make PCP appt- new Follow-up: FRANCESCO VELIZ follow-up in 2 months per pt request Cassie Raman RDN, JOSE ALFREDO Certified Diabetes Care and Video Arcade Manager P: [phone] Thank you for this referral
== END ==
LOC: DIET 15:24
PROVIDERS: PCP Family Medicine; Referring Provider Family Medicine
DX: E11.22 Type 2 diabetes mellitus with diabetic chronic kidney disease (principal); N18.9 Chronic kidney disease, unspecified; Z71.3 Dietary counseling and surveillance; Z79.4 Long term (current) use of insulin; Z96.41 Presence of insulin pump (external) (internal)
CPT/HCPCS: 97802

== ENCOUNTER → 2025-06-22 15:26 | Outpatient (CLI) | payer OTHER, SELFPAY ==
[2020-12-12 18:38] VITALS: BMI 35.4
--- NOTE | 2025-07-31 15:41 | DIAB.FU ---
Follow-up Diabetes Education Assessment Name: Daisy Morrow Date: 07/31/25 Time: 350-420p Dx: Type II Diabetes with CKD Provider: Cliff Daisy presents for Dm visit. States she has not had a CGM sensor for a few days. Still wearing pump and using manual mode. Less pump interactions with this new pump, which she is happy about. Endorses macular visit yesterday with auto inspection specialist. States right eye is doing well, but left eye not as good. Entering a medication trial of eye injection x 2 years. Adding fruit to afternoon snack more often, though not as consistent. Eating fish 1x per week. No PCP visit scheduled as of this RD visit. Over due for hgA1c. Pump Settings: Basal rate: 2.6u/hour ISF: 8 IC: 1:2 Target: 100mg/dl Smart guard insulin action time: 2 hours TDD: 92.4u Anthropometrics: Ht: 66 Wt: none today Self-Monitoring Blood Glucose: Slight improved time TIR. Some excessive time above goal. TIR: 4% very high 26% high 70% in range 0% low avmg/dl std dev: 40mg/dl GMI: % variation % Last TIR: 3% very high 28% high 69% in range 0% low avmg/dl std dev: 35mg/dl GMI: 7.4% variation % Diabetes Medications: Aspart via pump Pertinent Labs: HgA1c: 9.5% 11/2024 Past Medical History: (Last Reviewed 12/02/24 @ 13:37 by Brandee Rao MD)Allergies (~1964) Anxiety and depression (~1984) Asthma (~1962) SevereCarpal tunnel syndrome (~2014) Cervical vertebral fusion Chicken pox (~1969) Chronic back pain CKD (chronic kidney disease) (~2017) Stage 3Cubital tunnel syndrome LeftCubital tunnel syndrome of both upper extremities Degenerative disc disease, lumbar Eczema (~1962) GERD (gastroesophageal reflux disease) (~1989) Gout Headache (~1974) Hearing loss Right ear has very decreased hearingHTN (hypertension) (~1983) Hyperaldosteronism Irritable bowel syndrome (~1989) Mumps (~1967) NAFLD (nonalcoholic fatty liver disease) Peripheral neuropathy Retinopathy with macular edemaStatin intolerance Type 2 diabetes mellitus (~2009) Insulin dependent Intervention: This participant was very receptive. Provided appropriate educational handouts. Discussed the following topics: Reducing DM complications Troubleshooting for pump supplies Improved BG and goals for TIR DM management and visits/labs Created SMART goals for patient self-care and success. Goals: Add fruit to 2-230p consistently- improved Aim for fish 1x per week -met make PCP appt- not met Get new hgA1c- new Follow-up: [facility]ELIZ follow-up in 6 months per pt request or sooner prn Cassie Raman RDN, JO[facility] Certified [facility] and [employer] P: [phone] Thank you for this referral
== END ==
PROVIDERS: PCP Family Medicine; Referring Provider Family Medicine
DX: E11.22 Type 2 diabetes mellitus with diabetic chronic kidney disease (principal); Z71.3 Dietary counseling and surveillance; Z96.41 Presence of insulin pump (external) (internal); Z79.4 Long term (current) use of insulin
CPT/HCPCS: G0108

== ENCOUNTER → 2025-07-26 13:00 | Outpatient (CLI) | payer OTHER, SELFPAY ==
[2020-12-12 18:38] VITALS: BMI 35.4
--- NOTE | 2025-07-26 13:01 | DI.RAD.S_ITS ---
PROCEDURE: XR CHEST 2V INDICATIONS: Cough TECHNIQUE: 2 views of the chest were acquired. COMPARISON: [facility], CR, XR CHEST 1V, 03/25/2025, 9:27. [facility], CR, XR CHEST 1V, 12/02/2024, 12:56. FINDINGS AND IMPRESSION: Mild diffuse peribronchial thickening, likely atypical/viral infection. No airspace consolidation or pleural effusion. Normal heart size. Cervical fusion hardware. Degenerative osseous changes. Probable right calcific tendinopathy of the shoulder. Dictated by: Eric Zhang M.D. on 07/26/2025 at 13:27 Approved by: Eric Zhang M.D. on 07/26/2025 at 13:28
== END ==
PROVIDERS: PCP Family Medicine; Referring Provider Nurse Practitioner Family; Visit Provider Nurse Practitioner Family
DX: R05.9 Cough, unspecified (principal); Z98.1 Arthrodesis status
CPT/HCPCS: 71046

== ENCOUNTER → 2025-08-09 13:11 | Outpatient (CLI) | payer OTHER, SELFPAY ==
[2020-12-12 18:38] VITALS: BMI 35.4
--- NOTE | 2025-08-09 13:13 | DI.RAD.S_ITS ---
PROCEDURE: XR CHEST 2V INDICATIONS: Cough TECHNIQUE: 2 views of the chest were acquired. COMPARISON: Located Within [facility], CR, XR CHEST 2V, 07/26/2025, 12:59. FINDINGS: Surgical changes and devices: ACDF. Lungs and pleura: Lungs are clear. No pleural effusions or pneumothorax. Mediastinum: Mediastinal contours are normal. Heart size is normal. Bones and chest wall: No suspicious bony abnormalities. Soft tissues appear unremarkable. IMPRESSION: No consolidation identified. Dictated by: Dwayne Collins M.D. on 08/10/2025 at 8:45 Approved by: Dwayne Collins M.D. on 08/10/2025 at 8:47
== END ==
PROVIDERS: PCP Family Medicine; Referring Provider Family Medicine; Visit Provider Nurse Practitioner Family
DX: R05.9 Cough, unspecified (principal)
CPT/HCPCS: 71046

== ENCOUNTER → 2025-08-14 14:54 | Outpatient (CLI) | payer OTHER, SELFPAY ==
[2020-12-12 18:38] VITALS: BMI 35.4
[2025-08-14 17:21] LABS: Uric Acid 6.9 mg/dL (2.5-6.2)
[2025-08-14 18:06] LABS: Hemoglobin A1C% w Est Avg Glu 7.5 % (4.0-6.0)
== END ==
PROVIDERS: PCP Family Medicine; Referring Provider Family Medicine; Visit Provider Family Medicine
DX: M10.9 Gout, unspecified (principal); E11.22 Type 2 diabetes mellitus with diabetic chronic kidney disease; Z79.4 Long term (current) use of insulin; N18.31 Chronic kidney disease, stage 3a
CPT/HCPCS: 36415; 83036; 84550

== ENCOUNTER → 2025-10-16 08:54 | Outpatient (CLI) | payer OTHER, SELFPAY ==
[2020-12-12 18:38] VITALS: BMI 35.4
[2025-10-16 10:32] LABS: COVID-19 CEPHEID 4-PLEX PCR Negative (Negative); Influenza A - CEPHEID Flu A NEGATIVE (NEGATIVE); Influenza B - CEPHEID Flu B NEGATIVE (NEGATIVE)
== END ==
PROVIDERS: PCP Family Medicine; Visit Provider Family Medicine
DX: R05.9 Cough, unspecified (principal); R09.89 Other specified symptoms and signs involving the circulatory and respiratory systems; J11.1 Influenza due to unidentified influenza virus with other respiratory manifestations
CPT/HCPCS: 87637